=== PATIENT | female | born 1950 | race Caucasian/White ===

== ENCOUNTER 2020-07-16 14:35 | Inpatient (IN) ==
[2020-07-16] MEDS ORDERED: SODIUM CHLORIDE 0.9% 1000ML 1,000 ML IV SCH (15:15)
[2020-07-16] MEDS ORDERED: SODIUM CHLORIDE 0.9% 1000ML 1,000 ML IV ONE (15:28)
[2020-07-16 15:48] LABS: Hematocrit (blood only) 24.2 % (37-47); Hemoglobin 8.1 g/dL (12.0-16.0); Mean Corpuscular Hemoglobin 31.9 pg (25-34); Mean Corpuscular Hgb Conc 33.5 g/dL (32-36); Mean Corpuscular Volume 95.3 fL (80-100); Nucleated RBC # (auto) 0.02 K/uL (0-0); Nucleated RBC % (auto) 0.3 %; RDW Coefficient of Variation 19.3 % (11.5-14.5); RDW Standard Deviation 67.5 fL (36.4-46.3); Red Blood Count 2.54 M/uL (4.2-5.4); White Blood Count 5.81 K/uL (4.8-10.8)
[2020-07-16] MEDS: SODIUM CHLORIDE 0.9% 1000ML 1,000 ML IV SCH ×2 (15:49→22:09)
[2020-07-16 15:59] LABS: INR 1.3 (0.9-1.1); Partial Thromboplastin Ratio 1.6; Partial Thromboplastin Time 43.4 Seconds (21.0-31.0); Prothrombin Time 13.4 Seconds (9.0-12.0)
--- NOTE | 2020-07-16 16:00 | Emergency Department Note ---
Impression & Plan Acute hypotension, Atrial fibrillation with rapid ventricular response, Hypoxia ED Provider Note INFORMANT: Patient ED PROVIDER(S): Lokesh Reinoso MD CHIEF COMPLAINT: Illness PLAN: Disposition: Admit Condition: Guarded MEDICAL DECISION MAKING: Patient presented to the ER with her brother noting her general decline over the last several days. He states she is not doing well taking care of herself. She has been falling is very weak, and is having difficulty with her ADLs. She is in care home but not in nursing care. The patient was hypotensive and tachycardic. She was also exhibiting a pulse oximetry of 87% on room air. She was placed on 3 L nasal cannula oxygen. A code sepsis was initiated. ECG shows rapid atrial fibrillation. Clinically the patient looks extremely dry. Fluid resuscitation was initiated. Covid testing performed. Blood cultures ordered. Laboratory panel ordered. Patient did well with supplemental nasal cannula oxygen. Her CBC showed a moderate anemia. Repeat hemoglobin after hydration was done and showed a worsening anemia. Her chemistry panel was unremarkable. Urinalysis was unremarkable. Cultures are pending. Lactate normal. The patient's blood pressure remained low and additional saline boluses were given. Consultation was made with Dr. Bonner of the hospitalist service. Patient was evaluated for further management. She did go for CT imaging the abdomen pelvis which did not show any obvious issues with bleeding. The patient continued to have hypotension and he placed her on Levophed. Blood type and cross was performed. 2 units of red blood cells were ordered by internal medicine. Covid testing negative. Triage Nursing notes reviewed and agree them. Additional history obtained from patient's brother Vital Signs: reviewed and remarkable for hypoxia and hypotension Differential diagnosis: Sepsis, UTI, pneumonia, metabolic, electrolyte abnormalities, cardiac sources, intracerebral event, toxicologic, neurologic, as well as other pathologies. Diagnostics interpreted by me: ECG: Twelve-lead ECG reveals atrial fibrillation with rapid ventricular spots at 112 bpm. There is a lateral T wave inversions and subtle ST depression. No ST elevation. No PVCs. Normal QRS. Cardiac Monitoring: Cardiac monitoring ordered by me: The patient was placed on continuous cardiac monitoring and observed. It revealed a and atrial fibrillation with rapid response at 121 bpm. Imaging studies: Chest x-ray. Findings: A chest x-ray was performed and revealed no pneumothorax, effusion, infiltrate, pulmonary edema, free air under the diaphragm, or wide mediastinum. Impression: No acute disease. Head CT: A noncontrast CT scan of the head was performed and was negative for tumor, fracture, intracranial hemorrhage, or other acute pathology. CT PE study reveals what appears to be a chronic thrombus but no acute thrombi noted. No infiltrates to suggest pneumonia or other acute pathology. Nodules noted. I refer to the EMR for further details. [facility] HPI: The patient is a 69 year old female who presents to the Emergency Room with complaints of illness and altered mental status. This started over the last few days and is worsening per her brother. The patient also notes the following associated symptoms, left elbow pain from an abrasion, having diarrhea, feeling very thirsty and generally weak. The patient has found no relieving factors. Current pain unable to adequately quantify. Patient is undergoing treatment for breast cancer. She has had multiple falls recently and is getting weaker per the brother. Last chemotherapy was on 05 July 2020. Pt denies LOC, headache, fevers, chills, diaphoresis, visual changes, neck pain, chest pain, breathing difficulties, nausea, vomiting, abdominal pain, back pain, urinary symptoms, numbness, weakness, lymphadenopathy, rash, or other complaints. ROS: See above HPI for pertinent positives & negatives. A total of 10 systems reviewed and were otherwise negative. PAST MEDICAL HISTORY:See Below, atrial fibrillation, breast cancer, CAD PAST SURGICAL HISTORY:See Below, FAMILY HISTORY:See Below SOCIAL HISTORY:See Below, lives alone in a senior center HOME MEDICATIONS:See Below ALLERGIES:See Below VITALS:See Below PHYSICAL EXAMINATION: GENERAL: Awake very-appearing, in no distress HENT: Normocephalic, atraumatic. Oropharynx unremarkable except for very dry mucous membranes. EYES: Normal conjunctiva. Sclera non-icteric. NECK: Inspection normal. Non-tender. Supple. No nuchal rigidity. FROM. No masses. RESPIRATORY: Clear to auscultation. No wheezes. No rales. Normal respiratory effort. CARDIAC: Tachycardic rate. Irregular rhythm. No murmurs. No rubs. Extremities warm and well perfused. Pulses equal. No JVD. GI: Soft, non-distended. No tenderness to palpation. No rebound or guarding. No masses. RECTAL: Deferred. MUSCULOSKELETAL: Atraumatic. Chest examination reveals no tenderness. The back is symmetrical on inspection without obvious abnormality. There is no CVA tenderness to palpation. No joint edema. LOWER EXTREMITIES: Calves are equal size bilaterally and non-tender. 1+ edema. No discoloration. NEURO: Normal sensorium. No sensory or motor deficits noted. SKIN: No rash or jaundice noted. ED COURSE: Code sepsis initiated. Airborne precautions initiated. Critical Care: I have personally spent greater than 35 minutes of critical care time in the direct management of this patient. This includes bedside care, interpretation of diagnostic studies, and testing, discussion with consultants, patient, and family members, and other required patient management activities. These minutes are in excess of all separately billable procedures. 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 related to deviated trachea> no recent surgeries/anesthesia > most recent procedure 2003 [facility] H/O shoulder surgery right total replacement then reverse total > [facility] by Dr. Clifton> 1998 History of arthroscopic knee surgery right History of cardiac cath no stents > over [facility] yrs [facility] > 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: No Beliefs That Will Affect Care: None marital status: Single Current Living Situation: Alone current occupational status: retired 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 How many Children do You have: 0 Feels Safe at Home: Yes Assistive Devices: Cane, Denture - Upper, Denture - Lower, Glasses, Hearing Aid - Bilateral and Walker Allergies Allergies Allergy/AdvReac Type Severity Reaction Status Date / Time adhesive tape Allergy Mild Rash Verified 07/16/20 18:40 iodine Allergy Mild Rash Verified 07/16/20 18:40 Home Meds Home Medications Medication Instructions Recorded Confirmed albuterol sulfate 90 mcg/actuation 2 puffs INH Q6H PRN 03/30/20 07/16/20 aerosol inhaler apixaban 5 mg tablet 5 mg PO BID 03/30/20 07/16/20 aspirin 81 mg tablet,delayed 81 mg PO QAM 03/30/20 07/16/20 release atorvastatin 40 mg tablet 40 mg PO PM 03/30/20 07/16/20 bisoprolol fumarate 5 mg tablet 5 mg PO QAM 03/30/20 07/16/20 cholecalciferol (vitamin D3) 25 25 mcg PO QAM 03/30/20 07/16/20 mcg (1,000 unit) capsule digoxin 250 mcg (0.25 mg) tablet 250 mcg PO QAM 03/30/20 07/16/20 duloxetine 60 mg capsule,delayed 60 mg PO BID 03/30/20 07/16/20 release sprinkle fluticasone furoate 100 1 puffs INH QAM 03/30/20 07/16/20 mcg-vilanterol 25 mcg/dose inhalation powder furosemide 20 mg tablet 20 mg PO QAM 03/30/20 07/16/20 gabapentin 100 mg capsule 200 mg PO TID 03/30/20 07/16/20 levothyroxine 100 mcg capsule 100 mcg PO QAM 03/30/20 07/16/20 loratadine 10 mg tablet 10 mg PO QAM PRN 03/30/20 07/16/20 magnesium oxide 400 mg PO QAM 03/30/20 07/16/20 montelukast 10 mg tablet 10 mg PO HS 03/30/20 07/16/20 omeprazole 40 mg capsule,delayed 40 mg PO BID 03/30/20 07/16/20 release paroxetine HCl 20 mg tablet 20 mg PO DAILY 03/30/20 07/16/20 pramipexole 1 mg tablet 1 mg PO HS 03/30/20 07/16/20 Results & Data (ED) Vital Signs Vital Signs - 24 hr 07/16/20 14:45 07/16/20 15:12 07/16/20 15:15 Temperature 37.4 C Temperature Source Oral Pulse Rate 118 H 118 H Pulse Rate from SpO2 Sensor Pulse Rhythm Regular Respiratory Rate 20 26 H Respiratory Effort / Characteristics Non-Labored Respiratory Depth Normal Blood Pressure 90/46 L Blood Pressure Mean 60 Pulse Oximetry 94 100 87 L Oxygen Delivery Method Room Air Nasal Cannula Room Air Oxygen Flow Rate 3 Sepsis Recent Fever Within 48 Hours No Sepsis New/Unexplained Change in Mental Status Yes Sepsis Action Taken by Nursing No Action Required 07/16/20 15:57 07/16/20 15:58 07/16/20 16:00 Temperature Temperature Source Pulse Rate 98 H 89 96 H Pulse Rate from SpO2 Sensor 95 H 94 H Pulse Rhythm Respiratory Rate 38 H 34 H 26 H Respiratory Effort / Characteristics Respiratory Depth Blood Pressure 75/53 L 80/40 L Blood Pressure Mean 55 69 Pulse Oximetry 98 100 Oxygen Delivery Method Oxygen Flow Rate Sepsis Recent Fever Within 48 Hours Sepsis New/Unexplained Change in Mental Status Sepsis Action Taken by Nursing 07/16/20 16:15 07/16/20 16:31 07/16/20 17:00 Temperature Temperature Source Pulse Rate 84 84 Pulse Rate from SpO2 Sensor 83 87 Pulse Rhythm Respiratory Rate 23 25 H 25 H Respiratory Effort / Characteristics Non-Labored Respiratory Depth Blood Pressure 75/41 L 83/48 L Blood Pressure Mean 46 57 Pulse Oximetry 98 99 94 Oxygen Delivery Method Nasal Cannula Nasal Cannula Oxygen Flow Rate 2 2 Sepsis Recent Fever Within 48 Hours Sepsis New/Unexplained Change in Mental Status Sepsis Action Taken by Nursing 07/16/20 17:24 07/16/20 17:30 07/16/20 17:45 Temperature Temperature Source Pulse Rate 84 76 95 H Pulse Rate from SpO2 Sensor 85 78 96 H Pulse Rhythm Respiratory Rate 26 H 24 20 Respiratory Effort / Characteristics Respiratory Depth Blood Pressure 83/45 L 89/42 L 96/35 L Blood Pressure Mean 62 69 57 Pulse Oximetry 96 92 86 L Oxygen Delivery Method Oxygen Flow Rate Sepsis Recent Fever Within 48 Hours Sepsis New/Unexplained Change in Mental Status Sepsis Action Taken by Nursing 07/16/20 18:00 07/16/20 18:16 07/16/20 18:24 Temperature Temperature Source Pulse Rate 74 78 104 H Pulse Rate from SpO2 Sensor 70 86 83 Pulse Rhythm Respiratory Rate 25 H 32 H 27 H Respiratory Effort / Characteristics Non-Labored Respiratory Depth Blood Pressure 89/40 L 88/40 L 82/49 L Blood Pressure Mean 52 72 63 Pulse Oximetry 94 94 94 Oxygen Delivery Method Nasal Cannula Oxygen Flow Rate 2 Sepsis Recent Fever Within 48 Hours Sepsis New/Unexplained Change in Mental Status Sepsis Action Taken by Nursing 07/16/20 18:30 07/16/20 18:45 07/16/20 19:00 Temperature Temperature Source Pulse Rate 81 81 75 Pulse Rate from SpO2 Sensor 83 80 80 Pulse Rhythm Respiratory Rate 27 H 25 H 26 H Respiratory Effort / Characteristics Non-Labored Respiratory Depth Blood Pressure 85/40 L 86/41 L 80/37 L Blood Pressure Mean 58 55 48 Pulse Oximetry 92 94 95 Oxygen Delivery Method Nasal Cannula Oxygen Flow Rate 2 Sepsis Recent Fever Within 48 Hours Sepsis New/Unexplained Change in Mental Status Sepsis Action Taken by Nursing 07/16/20 19:15 07/16/20 19:30 07/16/20 19:31 Temperature Temperature Source Pulse Rate 80 87 91 H Pulse Rate from SpO2 Sensor 80 87 85 Pulse Rhythm Respiratory Rate 31 H 27 H 25 H Respiratory Effort / Characteristics Respiratory Depth Blood Pressure 78/46 L 89/38 L 80/43 L Blood Pressure Mean 51 56 60 Pulse Oximetry 93 95 95 Oxygen Delivery Method Nasal Cannula Oxygen Flow Rate 2 Sepsis Recent Fever Within 48 Hours Sepsis New/Unexplained Change in Mental Status Sepsis Action Taken by Nursing 07/16/20 19:41 07/16/20 19:45 07/16/20 20:01 Temperature Temperature Source Pulse Rate 76 85 83 Pulse Rate from SpO2 Sensor 90 86 81 Pulse Rhythm Respiratory Rate 22 39 H 29 H Respiratory Effort / Characteristics Respiratory Depth Blood Pressure 64/35 L 76/46 L 79/32 L Blood Pressure Mean 50 54 49 Pulse Oximetry 94 96 92 Oxygen Delivery Method Oxygen Flow Rate Sepsis Recent Fever Within 48 Hours Sepsis New/Unexplained Change in Mental Status Sepsis Action Taken by Nursing 07/16/20 20:46 07/16/20 21:00 Temperature Temperature Source Pulse Rate 67 82 Pulse Rate from SpO2 Sensor 70 64 Pulse Rhythm Respiratory Rate 29 H 19 Respiratory Effort / Characteristics Non-Labored Respiratory Depth Blood Pressure 101/48 L 71/47 L Blood Pressure Mean 66 50 Pulse Oximetry 95 97 Oxygen Delivery Method Nasal Cannula Nasal Cannula Oxygen Flow Rate 2 2 Sepsis Recent Fever Within 48 Hours Sepsis New/Unexplained Change in Mental Status Sepsis Action Taken by Nursing Laboratory Data Result diagrams: 07/16/20 19:48 07/16/20 15:35 Lab Results 07/16/20 07/16/20 07/16/20 Range/Units 15:35 15:35 15:35 WBC 5.81 (4.8-10.8) K/uL RBC 2.54 L (4.2-5.4) M/uL Hgb 8.1 L (12.0-16.0) g/dL Hct 24.2 L (37-47) % MCV 95.3 (80-100) fL MCH 31.9 (25-34) pg MCHC 33.5 (32-36) g/dL RDW Std Deviation 67.5 H (36.4-46.3) fL RDW Coeff of Demetra 19.3 H (11.5-14.5) % Plt Count 54 L (130-400) K/uL MPV 11.8 H (7.4-10.4) fL Immature Gran % (Auto) 2.4 % Neut % (Auto) 77.9 % Lymph % (Auto) 3.3 % Piatt % (Auto) 16.4 % Eos % (Auto) 0.0 % Baso % (Auto) 0.0 % Neut # (Auto) 4.53 (1.4-6.5) K/uL Lymph # (Auto) 0.19 L (1.2-3.4) K/uL Piatt # (Auto) 0.95 H (0.11-0.59) K/uL Eos # (Auto) 0.00 (0-0.5) K/uL Baso # (Auto) 0.00 (0-0.2) K/uL Immature Gran # (Auto) 0.14 H (0.00-0.02) K/uL Absolute Nucleated RBC 0.02 H (0-0) K/uL Nucleated RBC % (auto) 0.3 % Platelet Estimate Decreased L (Normal) PT 13.4 H (9.0-12.0) Seconds INR 1.3 H (0.9-1.1) APTT 43.4 H (21.0-31.0) Seconds PTT Ratio 1.6 Sodium 132 L (136-145) mmol/L Potassium 4.1 (3.5-5.1) mmol/L Chloride 96 L (98-107) mmol/L Carbon Dioxide 29 (21-32) mmol/L Anion Gap 7.0 (3-11) BUN 21 H (7-18) mg/dl Creatinine 0.89 (0.6-1.2) mg/dl Est Cr Clr Drug Dosing 50.8 ml/min Est GFR ( Amer) 76.1 Est GFR (Non-Af Amer) 65.7 BUN/Creatinine Ratio 23.7 H (10-20) Glucose 116 H (70-99) mg/dl Lactate (0.4-2.0) mmol/L Calcium 8.7 (8.5-10.1) mg/dl Magnesium 1.7 L (1.8-2.4) mg/dl Total Bilirubin 0.8 (0.2-1) mg/dl AST 16 (15-37) U/L ALT 18 (12-78) U/L Alkaline Phosphatase 95 (45-117) U/L Troponin I 0.039 (0-0.045) ng/ml Total Protein 5.6 L (6.4-8.2) gm/dl Albumin 2.2 L (3.4-5.0) gm/dl Globulin 3.4 (2.5-4.0) gm/dl Albumin/Globulin Ratio 0.6 L (0.9-2) Procalcitonin (0-0.5) ng/ml Urine Color Urine Appearance (Clear) Urine pH (4.5-7.5) Ur Specific [place] (1.000-1.030) Urine Protein (Negative) Urine Glucose (UA) (Negative) Urine Ketones (Negative) Urine Blood (Negative) Urine Nitrite (Negative) Urine Bilirubin (Negative) Urine Urobilinogen (Negative) Ur Leukocyte Esterase (Negative) Urine WBC (Auto) (0-5) /hpf Urine RBC (Auto) (0-4) /hpf U Hyaline Cast (Auto) (0-5) /lpf U Epithel Cells (Auto) (0-5) /lpf Urine Bacteria (Auto) (Negative) COVID-19 Eval Order SARS-CoV-2, RNA, NAAT (NEGATIVE) Blood Type Blood Type Recheck Antibody Screen Crossmatch 07/16/20 07/16/20 07/16/20 Range/Units 15:35 15:35 15:35 WBC (4.8-10.8) K/uL RBC (4.2-5.4) M/uL Hgb (12.0-16.0) g/dL Hct (37-47) % MCV (80-100) fL MCH (25-34) pg MCHC (32-36) g/dL RDW Std Deviation (36.4-46.3) fL RDW Coeff of Demetra (11.5-14.5) % Plt Count (130-400) K/uL MPV (7.4-10.4) fL Immature Gran % (Auto) % Neut % (Auto) % Lymph % (Auto) % Piatt % (Auto) % Eos % (Auto) % Baso % (Auto) % Neut # (Auto) (1.4-6.5) K/uL Lymph # (Auto) (1.2-3.4) K/uL Piatt # (Auto) (0.11-0.59) K/uL Eos # (Auto) (0-0.5) K/uL Baso # (Auto) (0-0.2) K/uL Immature Gran # (Auto) (0.00-0.02) K/uL Absolute Nucleated RBC (0-0) K/uL Nucleated RBC % (auto) % Platelet Estimate (Normal) PT (9.0-12.0) Seconds INR (0.9-1.1) APTT (21.0-31.0) Seconds PTT Ratio Sodium (136-145) mmol/L Potassium (3.5-5.1) mmol/L Chloride (98-107) mmol/L Carbon Dioxide (21-32) mmol/L Anion Gap (3-11) BUN (7-18) mg/dl Creatinine (0.6-1.2) mg/dl Est Cr Clr Drug Dosing ml/min Est GFR ( Amer) Est GFR (Non-Af Amer) BUN/Creatinine Ratio (10-20) Glucose (70-99) mg/dl Lactate 1.2 (0.4-2.0) mmol/L Calcium (8.5-10.1) mg/dl Magnesium (1.8-2.4) mg/dl Total Bilirubin (0.2-1) mg/dl AST (15-37) U/L ALT (12-78) U/L Alkaline Phosphatase (45-117) U/L Troponin I (0-0.045) ng/ml Total Protein (6.4-8.2) gm/dl Albumin (3.4-5.0) gm/dl Globulin (2.5-4.0) gm/dl Albumin/Globulin Ratio (0.9-2) Procalcitonin 0.55 H (0-0.5) ng/ml Urine Color Urine Appearance (Clear) Urine pH (4.5-7.5) Ur Specific [place] (1.000-1.030) Urine Protein (Negative) Urine Glucose (UA) (Negative) Urine Ketones (Negative) Urine Blood (Negative) Urine Nitrite (Negative) Urine Bilirubin (Negative) Urine Urobilinogen (Negative) Ur Leukocyte Esterase (Negative) Urine WBC (Auto) (0-5) /hpf Urine RBC (Auto) (0-4) /hpf U Hyaline Cast (Auto) (0-5) /lpf U Epithel Cells (Auto) (0-5) /lpf Urine Bacteria (Auto) (Negative) COVID-19 Eval Order SARS-CoV-2, RNA, NAAT (NEGATIVE) Blood Type Blood Type Recheck A Negative Antibody Screen Crossmatch 07/16/20 07/16/20 07/16/20 Range/Units 15:38 15:38 16:03 WBC (4.8-10.8) K/uL RBC (4.2-5.4) M/uL Hgb (12.0-16.0) g/dL Hct (37-47) % MCV (80-100) fL MCH (25-34) pg MCHC (32-36) g/dL RDW Std Deviation (36.4-46.3) fL RDW Coeff of Demetra (11.5-14.5) % Plt Count (130-400) K/uL MPV (7.4-10.4) fL Immature Gran % (Auto) % Neut % (Auto) % Lymph % (Auto) % Piatt % (Auto) % Eos % (Auto) % Baso % (Auto) % Neut # (Auto) (1.4-6.5) K/uL Lymph # (Auto) (1.2-3.4) K/uL Piatt # (Auto) (0.11-0.59) K/uL Eos # (Auto) (0-0.5) K/uL Baso # (Auto) (0-0.2) K/uL Immature Gran # (Auto) (0.00-0.02) K/uL Absolute Nucleated RBC (0-0) K/uL Nucleated RBC % (auto) % Platelet Estimate (Normal) PT (9.0-12.0) Seconds INR (0.9-1.1) APTT (21.0-31.0) Seconds PTT Ratio Sodium (136-145) mmol/L Potassium (3.5-5.1) mmol/L Chloride (98-107) mmol/L Carbon Dioxide (21-32) mmol/L Anion Gap (3-11) BUN (7-18) mg/dl Creatinine (0.6-1.2) mg/dl Est Cr Clr Drug Dosing ml/min Est GFR ( Amer) Est GFR (Non-Af Amer) BUN/Creatinine Ratio (10-20) Glucose (70-99) mg/dl Lactate (0.4-2.0) mmol/L Calcium (8.5-10.1) mg/dl Magnesium (1.8-2.4) mg/dl Total Bilirubin (0.2-1) mg/dl AST (15-37) U/L ALT (12-78) U/L Alkaline Phosphatase (45-117) U/L Troponin I (0-0.045) ng/ml Total Protein (6.4-8.2) gm/dl Albumin (3.4-5.0) gm/dl Globulin (2.5-4.0) gm/dl Albumin/Globulin Ratio (0.9-2) Procalcitonin (0-0.5) ng/ml Urine Color [place] Urine Appearance Clear (Clear) Urine pH 6.0 (4.5-7.5) Ur Specific [place] 1.023 (1.000-1.030) Urine Protein 1+ H (Negative) Urine Glucose (UA) Negative (Negative) Urine Ketones Negative (Negative) Urine Blood Negative (Negative) Urine Nitrite Negative (Negative) Urine Bilirubin Negative (Negative) Urine Urobilinogen Negative (Negative) Ur Leukocyte Esterase Trace H (Negative) Urine WBC (Auto) 0 (0-5) /hpf Urine RBC (Auto) 0-4 (0-4) /hpf U Hyaline Cast (Auto) 1-5 (0-5) /lpf U Epithel Cells (Auto) 0-5 (0-5) /lpf Urine Bacteria (Auto) Negative (Negative) COVID-19 Eval Order Covid19 [facility]Now [facility] SARS-CoV-2, RNA, NAAT NEGATIVE (NEGATIVE) Blood Type Blood Type Recheck Antibody Screen Crossmatch 07/16/20 07/16/20 Range/Units 19:48 19:48 WBC (4.8-10.8) K/uL RBC (4.2-5.4) M/uL Hgb 6.8 L* (12.0-16.0) g/dL Hct 20.6 L* (37-47) % MCV (80-100) fL MCH (25-34) pg MCHC (32-36) g/dL RDW Std Deviation (36.4-46.3) fL RDW Coeff of Demetra (11.5-14.5) % Plt Count (130-400) K/uL MPV (7.4-10.4) fL Immature Gran % (Auto) % Neut % (Auto) % Lymph % (Auto) % Piatt % (Auto) % Eos % (Auto) % Baso % (Auto) % Neut # (Auto) (1.4-6.5) K/uL Lymph # (Auto) (1.2-3.4) K/uL Piatt # (Auto) (0.11-0.59) K/uL Eos # (Auto) (0-0.5) K/uL Baso # (Auto) (0-0.2) K/uL Immature Gran # (Auto) (0.00-0.02) K/uL Absolute Nucleated RBC (0-0) K/uL Nucleated RBC % (auto) % Platelet Estimate (Normal) PT (9.0-12.0) Seconds INR (0.9-1.1) APTT (21.0-31.0) Seconds PTT Ratio Sodium (136-145) mmol/L Potassium (3.5-5.1) mmol/L Chloride (98-107) mmol/L Carbon Dioxide (21-32) mmol/L Anion Gap (3-11) BUN (7-18) mg/dl Creatinine (0.6-1.2) mg/dl Est Cr Clr Drug Dosing ml/min Est GFR ( Amer) Est GFR (Non-Af Amer) BUN/Creatinine Ratio (10-20) Glucose (70-99) mg/dl Lactate (0.4-2.0) mmol/L Calcium (8.5-10.1) mg/dl Magnesium (1.8-2.4) mg/dl Total Bilirubin (0.2-1) mg/dl AST (15-37) U/L ALT (12-78) U/L Alkaline Phosphatase (45-117) U/L Troponin I (0-0.045) ng/ml Total Protein (6.4-8.2) gm/dl Albumin (3.4-5.0) gm/dl Globulin (2.5-4.0) gm/dl Albumin/Globulin Ratio (0.9-2) Procalcitonin (0-0.5) ng/ml Urine Color Urine Appearance (Clear) Urine pH (4.5-7.5) Ur Specific [place] (1.000-1.030) Urine Protein (Negative) Urine Glucose (UA) (Negative) Urine Ketones (Negative) Urine Blood (Negative) Urine Nitrite (Negative) Urine Bilirubin (Negative) Urine Urobilinogen (Negative) Ur Leukocyte Esterase (Negative) Urine WBC (Auto) (0-5) /hpf Urine RBC (Auto) (0-4) /hpf U Hyaline Cast (Auto) (0-5) /lpf U Epithel Cells (Auto) (0-5) /lpf Urine Bacteria (Auto) (Negative) COVID-19 Eval Order SARS-CoV-2, RNA, NAAT (NEGATIVE) Blood Type A Negative Blood Type Recheck Antibody Screen NEGATIVE Crossmatch See Detail Administered Medications Sodium Chloride (Nss 1000ml) 1,000 mls @ 150 mls/hr IV .Q6H40M ISH Stop: 08/15/20 15:14 Last Admin: 07/16/20 15:49 Dose: 150 mls/hr Documented by: [id number] Vancomycin HCl 1,250 mg/ (Sodium Chloride) 525 mls @ 200 mls/hr IV NOW ONE Stop: 07/16/20 22:11 Last Admin: 07/16/20 20:40 Dose: 200 mls/hr Documented by: [id number] Norepinephrine Bitartrate (Levophed/D5w) 8 mg in 508 mls @ 11.525 mls/hr IV .Q24H ISH; Protocol Stop: 08/15/20 20:14 Last Admin: 07/16/20 20:40 Dose: 0.05 mcg/kg/min, 11.5 mls/hr Documented by: [id number] Cosigned by: [id number] Discontinued Medications Sodium Chloride (Nss 1000ml) 1,000 mls @ 999 mls/hr IV .Q1H1M ISH Stop: 07/16/20 16:15 Last Infusion: 07/16/20 16:45 Dose: 0 mls/hr Documented by: [id number] Admin: 07/16/20 15:49 Dose: 999 mls/hr Documented by: [id number] Sodium Chloride (Nss 1000ml) 1,000 mls @ 999 mls/hr IV .Q1H1M ONE Stop: 07/16/20 16:28 Last Infusion: 07/16/20 19:18 Dose: 0 mls/hr Documented by: [id number] Admin: 07/16/20 15:48 Dose: 999 mls/hr Documented by: [id number] Cefepime HCl (Maxipime) 2,000 mg in 20 mls @ 5 mls/min IV NOW STA; Protocol Stop: 07/16/20 16:48 Last Admin: 07/16/20 17:23 Dose: 5 mls/min Documented by: [id number] Sodium Chloride (Nss 1000ml) 500 mls @ 999 mls/hr IV .Q31M ONE Stop: 07/16/20 20:09 Last Infusion: 07/16/20 21:07 Dose: 0 mls/hr Documented by: [id number] Admin: 07/16/20 19:52 Dose: 999 mls/hr Documented by: [id number] Pantoprazole Sodium 80 mg/ (Dextrose) 120 mls @ 400 mls/hr IV NOW ONE Stop: 07/16/20 20:47 Last Infusion: 07/16/20 21:07 Dose: 0 mls/hr Documented by: [id number] Admin: 07/16/20 20:47 Dose: 400 mls/hr Documented by: [id number] Ioversol (Optiray 320 125ml) 116 ml IV ONCE ONE Stop: 07/16/20 16:54 Last Admin: 07/16/20 16:54 Dose: 116 ml Documented by: [id number] Discharge Plan Visit Data Chief Complaint: Illness Stated Complaint: HALLUCINATION, FALLS, NOT TAKING MEDS,CA PT ED Provider: Lokesh Reinoso Discharge Problem: Acute hypotension, Atrial fibrillation with rapid ventricular response, Hypoxia Forms Stand Alone Forms: [facility] Prescriptions Prescriptions: No Action Eliquis 5 mg tablet 5 mg PO BID RF: 0 levothyroxine 100 mcg capsule 100 mcg PO QAM RF: 0 aspirin 81 mg tablet,delayed release (DR/EC) 81 mg PO QAM RF: 0 atorvastatin 40 mg tablet 40 mg PO PM RF: 0 loratadine [Claritin] 10 mg tablet 10 mg PO QAM PRN (Reason: Allergy Symptoms) RF: 0 duloxetine 60 mg capsule, delayed rel sprinkle 60 mg PO BID RF: 0 bisoprolol fumarate 5 mg tablet 5 mg PO QAM RF: 0 Breo Ellipta 100-25 mcg/dose blister with device 1 puffs INH QAM RF: 0 gabapentin 100 mg capsule 200 mg PO TID RF: 0 montelukast 10 mg tablet 10 mg PO HS RF: 0 furosemide 20 mg tablet 20 mg PO QAM RF: 0 magnesium oxide 400 mg magnesium capsule 400 mg PO QAM RF: 0 paroxetine HCl 20 mg tablet 20 mg PO DAILY RF: 0 cholecalciferol (vitamin D3) 25 mcg (1,000 unit) capsule 25 mcg PO QAM RF: 0 digoxin 250 mcg (0.25 mg) tablet 250 mcg PO QAM RF: 0 pramipexole 1 mg tablet 1 mg PO HS RF: 0 omeprazole 40 mg capsule,delayed release(DR/EC) 40 mg PO BID RF: 0 albuterol sulfate [Ventolin HFA] 90 mcg/actuation HFA aerosol inhaler 2 puffs INH Q6H PRN (Reason: Shortness Of Breath) RF: 0
[2020-07-16 16:17] LABS: Albumin Level 2.2 gm/dl (3.4-5.0); BUN Creatinine Ratio 23.7 (10-20); Calcium 8.7 mg/dl (8.5-10.1); Creatinine Clr Calc Pharmacy 50.8 ml/min; Est GFR (African American) 76.1; Est GFR (Non-African American) 65.7; Magnesium 1.7 mg/dl (1.8-2.4); Potassium 4.1 mmol/L (3.5-5.1)
[2020-07-16 16:22] LABS: Albumin Globulin Ratio 0.6 (0.9-2); Bilirubin,Total 0.8 mg/dl (0.2-1); Globulin 3.4 gm/dl (2.5-4.0); Total Protein 5.6 gm/dl (6.4-8.2); Troponin I 0.039 ng/ml (0-0.045)
[2020-07-16 16:25] LABS: Appearance Urine Clear (Clear); Bacteria Urine Automated Negative (Negative); Bilirubin Urine Negative (Negative); Blood Urine Negative (Negative); Color Urine Orange; Epithelial Cell Urine Auto 0-5 /lpf (0-5); Glucose Urine UA Negative (Negative); Ketones Urine Negative (Negative); Leukocyte Esterase Urine Trace (Negative); Nitrite Urine Negative (Negative); Protein Urine 1+ (Negative); RBC Urine Automated 0-4 /hpf (0-4); Specific Gravity Urine 1.023 (1.000-1.030); Urobilinogen Urine Negative (Negative); WBC Urine Automated 0 /hpf (0-5)
[2020-07-16 16:30] LABS: Immature Granulocytes # (auto) 0.14 K/uL (0.00-0.02); Immature Granulocytes % (auto) 2.4 %; Lymphocytes # (auto) 0.19 K/uL (1.2-3.4); Lymphocytes % (auto) 3.3 %; Mean Platelet Volume 11.8 fL (7.4-10.4); Monocytes # (auto) 0.95 K/uL (0.11-0.59); Monocytes % (auto) 16.4 %; Neutrophils # (auto) 4.53 K/uL (1.4-6.5); Neutrophils % (auto) 77.9 %; Platelet Count 54 K/uL (130-400); Platelet Estimate Decreased (Normal)
[2020-07-16] MEDS ORDERED: CEFEPIME 2,000 MG/20 ML VIAL IV STA (16:45)
[2020-07-16] MEDS ORDERED: OPTIRAY 320 125ml IV ONE (16:53)
--- NOTE | 2020-07-16 16:54 | XRay Report ---
SINGLE VIEW CHEST CLINICAL HISTORY: Sepsis. FINDINGS: An AP, portable, upright chest radiograph is compared to study dated 04/08/2020 and correlat ed with PET/CT dated 03/29/2020. A left subclavian central venous infusion port is in place. The heart is enlarged noting atherosclerotic calcification of the thoracic aorta. There is pulmonary vascular congestion. Scarring/atelectasis is noted at the lung bases. No airspace consolidation is seen typica l for pneumonia. Trace pleural effusions are suspected. No pneumothorax is seen. The skeletal structu res are osteopenic. There are numerous healed bilateral rib fractures. A right shoulder arthroplasty is in place. Advanced arthritic change is seen in the left shoulder. IMPRESSION: 1. Cardiomegaly with evidence of congestive failure 2. Suspect trace pleural effusions. ACT 112: Negative or not required by law. Electronically signed by: Neto Ram M.D. 07/16/2020 4:52 PM
--- NOTE | 2020-07-16 17:01 | CT Scan Report ---
CT SCAN OF THE BRAIN WITHOUT IV CONTRAST CLINICAL HISTORY: Fall. Change in mental status. COMPARISON STUDY: No priors. TECHNIQUE: Unenhanced axial CT scan of the brain is performed from the vertex to the skull base. A do se lowering technique was utilized adhering to the principles of ALARA. FINDINGS: Brain parenchyma: There are age-related involutional changes noting advanced subcortical and periven tricular microangiopathic change. There is no hemorrhage, mass effect, or evidence of acute territori al ischemia by CT criteria. Ornelas-white matter differentiation is preserved. No extra-axial fluid kaylee ection is seen. Ventricles, sulci, cisterns: Prominent secondary to involutional change. Intracranial vasculature: There is atherosclerotic calcification of the cavernous carotid and vertebr al arteries. Calvarium: The skeletal structures are osteopenic. No depressed calvarial fracture is identified. Sinuses and mastoids: The visualized paranasal sinuses are clear. The mastoid air cells are well pneu matized. Orbits: The bony orbits are grossly intact. There are bilateral ocular lens implants. IMPRESSION: There is no hemorrhage, mass effect, or evidence of acute territorial ischemia by CT abdoulaye capps. ACT 112: Negative or not required by law. Electronically signed by: Neto Ram M.D. 07/16/2020 4:59 PM
--- NOTE | 2020-07-16 17:15 | CT Scan Report ---
CT ANGIOGRAM OF THE CHEST CLINICAL HISTORY: Hypotension. Breast cancer. COMPARISON STUDY: Chest x-ray dated 07/16/2020. PET/CT dated 03/29/2020. TECHNIQUE: Following the IV administration of 116 cc of Optiray 320, CT angiogram of the chest was pe rformed from the upper abdomen to the thoracic inlet utilizing the pulmonary embolus protocol. Images are reviewed in the axial, sagittal, and coronal planes. 3-D MIPS images are created and assessed. I V contrast was administered without complication. A dose lowering technique was utilized adhering to the principles of ALARA. The examination is degraded by streak artifact from the right arm which cou ld not be elevated above the chest as well as by motion artifact. CT DOSE: 963.32 mGy.cm FINDINGS: Thyroid: Atrophic. Thoracic aorta: There is atherosclerotic calcification of the thoracic aorta, which is normal in paras beth and demonstrates standard 3-vessel arch anatomy. No dissection is seen. Pulmonary vasculature: The pulmonary trunk is mildly dilated measuring 3.2 cm in diameter. This sugge sts pulmonary artery hypertension. There is a thin linear filling defect within a segmental branch of the left lower lobe pulmonary artery seen on image #125. This may represent trace chronic thrombus. No additional filling defects are identified within the main, lobar, or proximal segmental pulmonary branches to suggest pulmonary embolus. Evaluation of the peripheral branches is significantly comprom ised by motion artifact. 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 A left subclavian central venous infusio n port is in place. Heart: The heart is markedly enlarged and without pericardial effusion. Lungs and pleural spaces: Evaluation of the lung parenchyma is compromised by motion artifact. The tr achea and central airways are clear. There is no lobar consolidation or pleural effusion. Scarring/at electasis is noted at both lung bases. A 10 mm left upper lobe pulmonary nodule on image #152 is unch anged from the 03/29/2020 examination. A 9 mm left upper lobe pulmonary nodules seen on image #160 is new from previous, as is an 8 mm pleural-based nodule at the left lung base seen on image #59. Mediastinum: There is no mediastinal lymphadenopathy. Qing: Clear. Axillae: There is no axillary lymphadenopathy. Upper abdomen: There is a small hiatal hernia. Partially visualized upper abdominal viscera is otherw ise grossly unremarkable. Skeletal structures: The skeletal structures are osteopenic. A right shoulder arthroplasty is in plac e. Arthritic change is noted in the left shoulder. Degenerative change and hyperkyphosis is also seen in the thoracic spine. No lytic or blastic bony lesions are seen. Soft tissues: Postoperative change is noted in the right breast. IMPRESSION: 1. Streak and motion compromised examination. 2. A linear filling defect within a segmental branch of the left lower lobe pulmonary artery likely r epresents trace chronic thrombus. 3. No additional findings are concerning for acute pulmonary embolus in the main, lobar, or proximal segmental pulmonary arteries. Evaluation of the peripheral branches is significantly motion compromis ed. 4. Marked cardiomegaly. 5. A 10 mm left upper lobe pulmonary nodule is unchanged as compared to 03/29/2020. 6. There are 2 additional pulmonary and pleural-based nodules in the left lung which are new from 03/20. Although these could be on an inflammatory basis, progressive metastatic disease is favored. Attention at follow-up will be required. 7. 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 ACT 112: Negative or not required by law. Electronically signed by: Neto Ram M.D. 07/16/2020 5:14 PM
--- NOTE | 2020-07-16 19:33 | History & Physical Report ---
Date of Service July 16, 2020 Assessment & Plan (1) Septic shock: Suspected with source bacteremia from port +/- open wound on back. NSS 2.5L bolus given in ER. Will start on Levophed Empiric antibiotics with vancomycin and cefepime. Follow up blood cultures (one from port, one peripheral) Discussed with ICU EDUARDO Garcias - patient to be admitted to ICU for ongoing care due to need for vasopressors. (2) Acute hypotension: ?sepsis, ?secondary to lasix/bisoprolol use. (3) Dehydration: Poor oral intake. Adequate fluid resuscitation with 2.5L NSS in ER. Further IV fluids per ICU. No signs of heart failure after these fluids despite moderate-severe aortic stenosis. (4) Normocytic anemia: Concerning drop in ER from Hgb 10.7 [07/05] to 8.1, now 6.8. Suspect acute drop is from dilution with IV fluids. Likely secondary to chemotherapy bone marrow suppression but difficult to rule out GI bleed from unreliable history from patient. FOB pending. CT A/P without IV contrast unremarkable. Start IV pantoprazole bolus + drip Transfuse 2 units packed RBCs (5) Thrombocytopenia: Suspect secondary to bone marrow suppression with chemotherapy. Monitor with AM labs. (6) Hypoxia: Aim O2 sats > 94% (7) Right breast cancer with T3 tumor, >5 cm in greatest dimension: ER positive HER2/jose negative. Currently undergoing neoadjuvant chemotherapy under Dr Spencer. (8) Atrial fibrillation with rapid ventricular response: Improved rate with IV fluids suggestive of dehydrated state in ER. Monitor for tachycardia with discontinuation of bisoprolol. Will defer to ICU continuation of digoxin. Holding apixaban in setting of possible GI bleed as above. (9) Aortic stenosis: Notable recent echocardiogram with moderate-severe aortic stenosis. No evidence of heart failure after IV fluids given. Follows with cardiology (Dr Koenig) (10) Dementia: On no medications for such. At risk of delirium - frequent reorientation. (11) DVT prophylaxis: Holding apixaban in setting of possible GI bleed. SCDs Admission and Anticipated Discharge Date Admission Date: 07/16/2020 History of Present Illness Chief Complaint: Fatigue Primary Care Provider: Vamshi Ornelas MD Cyndi Vega is a 69 year old female with right breast invasive ductal carcinoma who presents to the ER with generalized weakness and fatigue. She is currently undergoing neoadjuvant chemotherapy for invasive ductal carcinoma. She lives by herself and has progressive dementia therefore history taking from the patient is rather limited. She reports recurrent falls, generally not feeling well, 2 episodes of diarrhea over the last week (brown, not watery, no melena or bright red blood in stool). She denies any fever, chills, shortness of breath, chest pain, abdominal pain, cough, sinus congestion, dysuria. Just generally feeling weak - she went to the bathroom last night and notes falling down and couldn't get back up. No one sided weakness or change in sensation. She notes her brother Ramón makes all of her medical decisions and acts as her power of mercury cracking tester. Discussed with her brother Ramón Vega who is her power of mercury cracking tester. He reports she has been getting increasingly confused and weak for the last weak. Loss of appetite and not eating. She has had recurrent falls and was crawling around her apartment yesterday. She refuses to wear her medical alert bracelet so did not inform him immediately despite he lives only one mile down the road. She eventually called 911 but refused to go to hospital after they lifted her up. Usually ambulatory with a walker. He also reports concern for an open wound on the patients left shoulder. He reports she picks at this constantly and was recently prescribed antibiotics by her PCP for this. Consent granted for blood transfusion verbally over the phone. Allergies Allergy/AdvReac Type Severity Reaction Status Date / Time adhesive tape Allergy Mild Rash Verified 07/16/20 18:40 iodine Allergy Mild Rash Verified 07/16/20 18:40 Home Medications Medication Instructions Recorded Confirmed Type albuterol sulfate 90 mcg/actuation 2 puffs INH Q6H PRN 03/30/20 07/16/20 History aerosol inhaler apixaban 5 mg tablet 5 mg PO BID 03/30/20 07/16/20 History aspirin 81 mg tablet,delayed 81 mg PO QAM 03/30/20 07/16/20 History release atorvastatin 40 mg tablet 40 mg PO PM 03/30/20 07/16/20 History bisoprolol fumarate 5 mg tablet 5 mg PO QAM 03/30/20 07/16/20 History cholecalciferol (vitamin D3) 25 25 mcg PO QAM 03/30/20 07/16/20 History mcg (1,000 unit) capsule digoxin 250 mcg (0.25 mg) tablet 250 mcg PO QAM 03/30/20 07/16/20 History duloxetine 60 mg capsule,delayed 60 mg PO BID 03/30/20 07/16/20 History release sprinkle fluticasone furoate 100 1 puffs INH QAM 03/30/20 07/16/20 History mcg-vilanterol 25 mcg/dose inhalation powder furosemide 20 mg tablet 20 mg PO QAM 03/30/20 07/16/20 History gabapentin 100 mg capsule 200 mg PO TID 03/30/20 07/16/20 History levothyroxine 100 mcg capsule 100 mcg PO QAM 03/30/20 07/16/20 History loratadine 10 mg tablet 10 mg PO QAM PRN 03/30/20 07/16/20 History magnesium oxide 400 mg PO QAM 03/30/20 07/16/20 History montelukast 10 mg tablet 10 mg PO HS 03/30/20 07/16/20 History omeprazole 40 mg capsule,delayed 40 mg PO BID 03/30/20 07/16/20 History release paroxetine HCl 20 mg tablet 20 mg PO DAILY 03/30/20 07/16/20 History pramipexole 1 mg tablet 1 mg PO HS 03/30/20 07/16/20 History Past Med/Surg History Medical History (Updated 07/17/20 @ 13:36 by Abdulaziz Estrella MD) Anemia Anxiety Aortic stenosis moderate per 03/2020 echo Arthritis Asthma Atrial fibrillation Breast cancer, right Cardiac murmur has had for long time Dementia Depression GERD (gastroesophageal reflux disease) Hearing deficit Hyperlipidemia Hypertension Hypothyroidism 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 related to deviated trachea> no recent surgeries/anesthesia > most recent procedure 2003 [facility] H/O shoulder surgery right total replacement then reverse total > [facility] by Dr. Clifton> 1998 History of arthroscopic knee surgery right History of cardiac cath no stents > over 5 yrs ago > [facility]. sees Dr. Arya kaur cardiology History of colonoscopy History of hip surgery bilat replacements > [facility] > [facility] > unsure when but prior to 2003 History of tooth extraction History of total right knee replacement 2003 @ [facility] Family History Sister Diabetes Breast cancer Grandmother (Maternal) Thyroid cancer Social History Smoking Status: Never smoker Second Hand Exposure: No; Do You Dip or Chew Tobacco: No; Tobacco Cessation Education Requested by Patient: No Hx Alcohol Use: No Hx Substance Use: No Preferred Language: Yoruba Communication Ability: Effective Hammer Fitter Required: No Beliefs That Will Affect Care: None marital status: Single Current Living Situation: Alone current occupational status: retired 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 How many Children do You have: 0 Other Information That Helps Us Care for You: No Feels Safe at Home: Yes Safety Concerns: Feels Safe At This Time Assistive Devices: Cane, Glasses and Walker Review of Systems Review of Systems: All systems reviewed & are unremarkable except as noted in HPI & below Physical Exam Constitutional: well developed and + frail appearing; + not well nourished and no acute distress Eyes: PERRL, conjunctivae normal, anicteric sclerae ENMT: Mouth: + dry oral mucous membranes and + poor dentition Neck: trachea midline, no thyromegaly Respiratory: normal respiratory effort, lungs clear to auscultation Auscultation: no crackles and no wheezes Cardiovascular: Rate/Rhythm: regular rate and + irregularly irregular Heart Sounds: + murmur (systolic RUSB 2/6) Vessels: no JVD Extremities: normal capillary refill and + pedal edema (1+ ankles b/l equal); no calf tenderness Gastrointestinal (Abdomen): normal bowel sounds, soft, nontender, no hepatosplenomegaly Skin: + ulcer (unstageable 2cm ulcer, no cellulitis on base posterior left nec) Neurologic: moves all extremities and awake; no focal motor deficits (no lateralizing deficit) and not confused Speech / Cognition: normal speech Motor/Sensory: no tremor, no pronator drift and no sensory deficit Coordination: normal [id number] test Psychiatric: Orientation: alert, oriented to person, oriented to place and oriented to time Results & Data Results & Data ([facility]) Vital Signs (Past 12 Hours) Vital Signs Temp Pulse Resp BP Pulse Ox 07/16/20 19:15 80 31 H 78/46 L 93 07/16/20 19:00 75 26 H 80/37 L 95 07/16/20 18:45 81 25 H 86/41 L 94 07/16/20 18:30 81 27 H 85/40 L 92 07/16/20 18:24 104 H 27 H 82/49 L 94 07/16/20 18:16 78 32 H 88/40 L 94 07/16/20 18:00 74 25 H 89/40 L 94 07/16/20 17:45 95 H 20 96/35 L 86 L 07/16/20 17:30 76 24 89/42 L 92 07/16/20 17:24 84 26 H 83/45 L 96 07/16/20 17:00 25 H 94 07/16/20 16:31 84 25 H 83/48 L 99 07/16/20 16:15 84 23 75/41 L 98 07/16/20 16:00 96 H 26 H 100 07/16/20 15:58 89 34 H 80/40 L 98 07/16/20 15:57 98 H 38 H 75/53 L 07/16/20 15:15 87 L 07/16/20 15:12 118 H 26 H 100 07/16/20 14:45 37.4 C 118 H 20 90/46 L 94 Diagnostic Findings SINGLE VIEW CHEST IMPRESSION: 1. Cardiomegaly with evidence of congestive failure 2. Suspect trace pleural effusions. CT SCAN OF THE BRAIN WITHOUT IV CONTRAST IMPRESSION: There is no hemorrhage, mass effect, or evidence of acute territorial ischemia by CT criteria. CT ANGIOGRAM OF THE CHEST IMPRESSION: 1. Streak and motion compromised examination. 2. A linear filling defect within a segmental branch of the left lower lobe pulmonary artery likely represents trace chronic thrombus. 3. No additional findings are concerning for acute pulmonary embolus in the main, lobar, or proximal segmental pulmonary arteries. Evaluation of the peripheral branches is significantly motion compromised. 4. Marked cardiomegaly. 5. A 10 mm left upper lobe pulmonary nodule is unchanged as compared to 03/29/2020. 6. There are 2 additional pulmonary and pleural-based nodules in the left lung which are new from 03/29/2020. Although these could be on an inflammatory basis, progressive metastatic disease is favored. Attention at follow-up will be required. 7. 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 CT SCAN OF THE ABDOMEN AND PELVIS WITHOUT IV CONTRAST IMPRESSION: There are no acute infectious or inflammatory findings in the abdomen or pelvis. Medications Administered ER Medications given: NSS 2L bolus then 125ml/hr Cefepime 2g IV Vancomycin 1250 mg IV ECG Rate (beats per minute): 112 Rhythm: atrial fibrillation Findings: + T-wave inversion (Anterior) Comparison ECG Date: from (March 30, 2020) Change: the following changes noted (T wave inversions are new) Code Status & VTE Plan Code Status Full as discussed with the patient and POA - although previous wishes not to be intubated she currently wishes for full resuscitation which her POA agrees to. VTE Prophylaxis Plan VTE Prophylaxis will be ordered: Yes Critical Care Time Critical Care Time: Yes Total Critical Care Time: 35 PG Care Time/CCT Total # of Minutes Spent Total Time Spent with Patient: Total time spent is greater than 50% in coordination of care (as documented) at patient's floor/unit and/or counseling patient: Critical Care Time: Yes Total Critical Care Time: 35 Coding Level of Care Code 79707 Initial Inpt Care Lvl 3 Diagnoses Septic shock A41.9; R65.21 Acute hypotension I95.9 Dehydration E86.0 Normocytic anemia D64.9 Thrombocytopenia D69.6 Hypoxia R09.02 Right breast cancer with T3 tumor, >5 cm in greatest dimension C50.911 Atrial fibrillation with rapid ventricular response I48.91 Aortic stenosis I35.0 Dementia F03.90 DVT prophylaxis Z29.9 Additional Codes Critical Care Time - Critical Care Time: Yes ([id number])
[2020-07-16] MEDS ORDERED: VANCOMYCIN CONSULT ACTIVE PRN (19:34)
[2020-07-16] MEDS ORDERED: VANCOMYCIN HCL 1,250 MG in SODIUM CHLORIDE 0.9% 500 ML IV ONE (19:34)
[2020-07-16] MEDS ORDERED: SODIUM CHLORIDE 0.9% 1000ML 500 ML IV ONE (19:39)
[2020-07-16] MEDS ORDERED: STAT IV Infusion **Titration per Protocol STA (20:00)
[2020-07-16 20:09] LABS: Hematocrit (blood only) 20.6 % (37-47); Hemoglobin 6.8 g/dL (12.0-16.0)
[2020-07-16] MEDS ORDERED: PANTOPRAZOLE BOLUS/DRIP 1 EA IV STA (20:13)
[2020-07-16] MEDS ORDERED: SODIUM CHLORIDE 0.9% 250 ML IV PRN (20:13)
[2020-07-16] MEDS ORDERED: PANTOprazole 80 MG in DEXTROSE 5% 100 ML IV ONE (20:30)
[2020-07-16] MEDS: NOREPINEPHRINE/D5W 8 MG/508 ML BAG IV SCH (20:40)
--- NOTE | 2020-07-16 20:59 | CT Scan Report ---
CT SCAN OF THE ABDOMEN AND PELVIS WITHOUT IV CONTRAST CLINICAL HISTORY: Sepsis. Diarrhea. COMPARISON STUDY: PET CT dated 03/29/2020. TECHNIQUE: CT scan of the abdomen and pelvis is performed from the lung bases to the proximal femora. Images are reviewed in the axial, sagittal, and coronal planes. IV contrast was not administered for this examination. Note that the examination was performed in suboptimal fashion without oral and IV contrast. There is streak artifact from the right arm which could not be elevated above the abdomen. A dose lowering technique was utilized adhering to the principles of ALARA. CT DOSE: 564.27 mGy.cm FINDINGS: Lung bases: The heart is enlarged and without pericardial effusion. Scarring/atelectasis is seen at b oth lung bases. There is no airspace consolidation or pleural effusion. Liver: The unenhanced liver is normal in size, contour, and attenuation. There is no intrahepatic bridgette iary ductal dilatation. Gallbladder: Unremarkable. Spleen: Normal in size and attenuation. Pancreas: The unenhanced pancreas is atrophic and grossly unremarkable. Adrenal glands: Unremarkable. Kidneys: The unenhanced kidneys demonstrate cortical atrophy and are without hydronephrosis. The left kidney is located in the pelvis. Excreted IV contrast fills the renal collecting systems and ureters . The presence renal calculi cannot be assessed. There is no evidence of contour deforming renal mass lesion. Abdominal vasculature: The abdominal aorta is normal in course and caliber noting mild atheroscleroti c calcification. Bowel: There is no bowel obstruction. The appendix is well-visualized and normal. Peritoneum: There is no intraperitoneal free air or abdominal ascites. Lymphadenopathy: None. Pelvic viscera: Evaluation of the pelvis is severely degraded by streak artifact from bilateral hip a rthroplasties. The bladder is filled with excreted IV contrast and grossly unremarkable. The uterus i s normal as visualized. No adnexal lesion is seen. Skeletal structures: The skeletal structures are osteopenic. No lytic or blastic lesions are seen. Bi lateral hip arthroplasties are in place. IMPRESSION: There are no acute infectious or inflammatory findings in the abdomen or pelvis. ACT 112: Negative or not required by law. Electronically signed by: Neto Ram M.D. 07/16/2020 8:57 PM
--- NOTE | 2020-07-16 21:21 | Electrocardiogram Report ---
Test Reason : Blood Pressure : / mmHG Vent. Rate : 112 BPM Atrial Rate : 120 BPM P-R Int : 000 ms QRS Dur : 078 ms QT Int : 286 ms P-R-T Axes : 000 012 229 degrees QTc Int : 390 ms Atrial fibrillation with rapid ventricular response Abnormal ECG When compared with ECG of 30-MAR-2020 15:07, Vent. rate has increased BY 48 BPM T wave inversion now evident in Anterior leads Confirmed by Vish Fragoso ([id number]) on 07/16/2020 9:21:36 PM Referred By: ED Confirmed By:Vish Fragoso
[2020-07-16 21:59] LABS: Adenovirus PCR Not Detected (NotDetected); Bordetella parapertussis PCR Not Detected (NotDetected); Bordetella pertussis PCR Not Detected (NotDetected); Chlamydia pneumoniae PCR Not Detected (NotDetected); Coronavirus 229E PCR Not Detected (NotDetected); Coronavirus CoV-2 (COVID19)PCR Not Detected (NotDetected); Coronavirus HKU1 PCR Not Detected (NotDetected); Coronavirus NL63 PCR Not Detected (NotDetected); Coronavirus OC43PCR Not Detected (NotDetected); Human Metapneumovirus PCR Not Detected (NotDetected); Influenza A PCR Not Detected (NotDetected); Influenza B PCR Not Detected (NotDetected); Mycoplasma pneumoniae PCR Not Detected (NotDetected); Parainfluenza Virus 1 PCR Not Detected (NotDetected); Parainfluenza Virus 2 PCR Not Detected (NotDetected); Parainfluenza Virus 3 PCR Not Detected (NotDetected); Parainfluenza Virus 4 PCR Not Detected (NotDetected); Respiratory Syncytial VirusPCR Not Detected (NotDetected); Rhinovirus/Enterovirus PCR Not Detected (NotDetected)
[2020-07-16] MEDS: PANTOprazole 40 MG in DEXTROSE 5% 100 ML IV SCH (22:09)
--- NOTE | 2020-07-17 00:02 | Critical Care Consultation ---
Date of Consultation July 17, 2020 Assessment & Plan (1) Admitted to intensive care unit: Reason Critically Ill: 69-year-old female with concerns for severe sepsis with septic shock from unknown source at this time requiring close hemodynamic monitoring status post aggressive IV fluid resuscitation and need for initiation of vasopressor support. NEURO - * AMS: * Difficult to assess as patient is w/ h/o baseline dementia. * Very pleasant and able to provide much of HPI. * CT Head unremarkable. * Likely degree of metabolic encephalopathy w/ underlying illness. CARDIAC/VASCULAR - * Hypotension: * Likely 2/2 sepsis and hypovolemia. * Received 2.5L crystalloid in the ED. * Agree w/ pressors at this point. * Patient w/ drop in H&H in the ED. Agree w/ replacement in the bone marrow suppressed individual. * Echo (07/02): EF 55-60%, AR, Mod-Sev . * Monitor on telemetry. RESPIRATORY - * Hypoxia: * No infiltrative changes on CXR/CTA. * ??Chronic thrombus. Anticoagulated on Apixaban. * Supplemental O2 PRN. * COVID 19/Respiratory PCR negative. GI/NUTRITION - * Will guaiac all stools to assess for ??GIB. * No overt findings at this time. * Prophylaxis: Protonix RENAL/LYTES - * Dehydration: * Likely 2/2 poor nutrition. * Continue w/ IVF/Electrolyte replacement. * IVF: Normosol R @ 100 mL/hr - * Cerna in place - Strict I&Os. ENDO - * No h/o DM * BSGs per unit protocol. ISS --> gtt per unit policy. * Hypothyroidism: * TSH wnl. * Continue home Rx HEME - * Anemia: * Moderate drop in H&H today likely dilutional s/p aggressive IVF resuscitation. * This is superimposed on a more chronic anemia w/ probable bone marrow suppression from chemotherapeutics w/ ??infectious component. * Agree w/ initial transfusion in then profoundly hypotensive patient requiring escalating doses of pressors. * CT chest and abd/pelvis w/o acute findings. * Continue to monitor stools for ??losses. ID - * Sepsis like picture in the patient currently receiving chemotherapy. * Initially received Cefepime/Vanc. * Will continue Cefepime pending further labs (i.e. cultures). * Urine, Chest/Abd films, respiratory PCR w/o acute findings. * COVID-19 negative. * Trend fever curve. LINES/IV ACCESS - * PIVs x3 * LEFT Port * Cerna DVT PROPHYLAXIS - * Hold on chemoprophylaxis in the setting of acute anemia w/ ??source. * SCDs I have personally spent 45 minutes of critical care time in the direct management of this patient. This is a life/limb threatening event. This includes time spent evaluating patient, direct bedside care, chart review, placing orders, interpretation of diagnostic studies, discussion with consultants, patient, and family members, as well as other required patient management act ivities. This time is exclusive of all separately billable procedures, and teaching time and separate from and in addition to any other critical care service time. Thank you for allowing us to participate in the care of this patient. Please refer to my attending physician's documentation for any further recommendations. (2) Septic shock: (3) Normocytic anemia: (4) Thrombocytopenia: (5) Acute hypotension: (6) Atrial fibrillation with rapid ventricular response: (7) Hypoxia: (8) Heart disease: (9) Thyroid disease: (10) Right breast cancer with T3 tumor, >5 cm in greatest dimension: (11) Hypothyroidism: (12) Dehydration: (13) Dementia: Supervising Physician Co-Signing Physician Notes seen and examined. discussed with YULIYA and agree with A?P as noted. Refer to my PN from 07/17 for additional details. History of Present Illness History of Present Illness Patient is a 69-year-old female with a significant past medical history of RIGHT-sided breast CA with T3 tumor currently receiving chemotherapy, thyroid disease, heart disease, A. fib with RVR. Per conversation with patient and providers notes, patient was noted to be increasingly weak with falls over the last few days. Patient reportedly had fallen and laid on the ground for moderate amount of time. EMS was contacted and helped the patient from the ground, but she refused transfer to hospital. Eventually, the patient's brother did convince her to come to the hospital. She was noted to be hypotensive. Initially, she did respond to aggressive IV fluid resuscitation. She received broad-spectrum antibiotics. She was found to be pancytopenic. Procalcitonin s lightly elevated. CT of the head, chest, and abdomen/pelvis were found to be unremarkable. COVID-19 testing negative. Patient was started on Levophed in the emergency department. She was transferred to the ICU for further evaluation management. Upon evaluation in the ICU, the patient is awake, and alert. She appears pleasantly confused, but reports no complaints at this time. Specifically, the patient denies any complaints of fevers, chills, headaches, dizziness, lightheadedness, chest pain, palpitations, shortness of breath, nausea, vomiting, or abdominal pain. Allergies Allergy/AdvReac Type Severity Reaction Status Date / Time adhesive tape Allergy Mild Rash Verified 07/16/20 18:40 iodine Allergy Mild Rash Verified 07/16/20 18:40 Home Medications Medication Instructions Recorded Confirmed Type albuterol sulfate 90 mcg/actuation 2 puffs INH Q6H PRN 03/30/20 07/16/20 History aerosol inhaler apixaban 5 mg tablet 5 mg PO BID 03/30/20 07/16/20 History aspirin 81 mg tablet,delayed 81 mg PO QAM 03/30/20 07/16/20 History release atorvastatin 40 mg tablet 40 mg PO PM 03/30/20 07/16/20 History bisoprolol fumarate 5 mg tablet 5 mg PO QAM 03/30/20 07/16/20 History cholecalciferol (vitamin D3) 25 25 mcg PO QAM 03/30/20 07/16/20 History mcg (1,000 unit) capsule digoxin 250 mcg (0.25 mg) tablet 250 mcg PO QAM 03/30/20 07/16/20 History duloxetine 60 mg capsule,delayed 60 mg PO BID 03/30/20 07/16/20 History release sprinkle fluticasone furoate 100 1 puffs INH QAM 03/30/20 07/16/20 History mcg-vilanterol 25 mcg/dose inhalation powder furosemide 20 mg tablet 20 mg PO QAM 03/30/20 07/16/20 History gabapentin 100 mg capsule 200 mg PO TID 03/30/20 07/16/20 History levothyroxine 100 mcg capsule 100 mcg PO QAM 03/30/20 07/16/20 History loratadine 10 mg tablet 10 mg PO QAM PRN 03/30/20 07/16/20 History magnesium oxide 400 mg PO QAM 03/30/20 07/16/20 History montelukast 10 mg tablet 10 mg PO HS 03/30/20 07/16/20 History omeprazole 40 mg capsule,delayed 40 mg PO BID 03/30/20 07/16/20 History release paroxetine HCl 20 mg tablet 20 mg PO DAILY 03/30/20 07/16/20 History pramipexole 1 mg tablet 1 mg PO HS 03/30/20 07/16/20 History Patient History Medical History (Updated 07/17/20 @ 07:11 by Dragan Bonner MD) Anemia Anxiety Aortic stenosis moderate per 03/2020 echo Arthritis Asthma Atrial fibrillation Breast cancer, right Cardiac murmur has had for long time Dementia Depression GERD (gastroesophageal reflux disease) Hearing deficit Hyperlipidemia Hypertension Hypothyroidism 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 related to deviated trachea> no recent surgeries/anesthesia > most recent procedure 2003 [facility] H/O shoulder surgery right total replacement then reverse total > [facility] by Dr. Clifton> 1998 History of arthroscopic knee surgery right History of cardiac cath no stents > over 5 yrs ago > [facility]. sees Dr. Koenig [facility] History of colonoscopy History of hip surgery bilat replacements > [facility] > [facility] > unsure when but prior to 2003 History of tooth extraction History of total right knee replacement 2003 @ [facility] [place] Family History Sister Diabetes Breast cancer Grandmother (Maternal) Thyroid cancer Social History Smoking Status: Never smoker Second Hand Exposure: No; Do You Dip or Chew Tobacco: No; Tobacco Cessation Education Requested by Patient: No Hx Alcohol Use: No Hx Substance Use: No Preferred Language: Nepali Communication Ability: Effective House Detective Required: No Beliefs That Will Affect Care: None marital status: Single Current Living Situation: Alone current occupational status: retired current occupation: former [employer] How many Children do You have: 0 Other Information That Helps Us Care for You: No Feels Safe at Home: Yes Safety Concerns: Feels Safe At This Time Assistive Devices: Cane, Glasses and Walker Review of Systems Review of Systems: A complete 10 point review of systems was reviewed with the patient with pertinent positives and negatives as per history of present illness. All else were negative. Physical Exam Physical Exam: VITAL SIGNS - Vital signs and nursing notes were reviewed. GENERAL - 69-year-old female appearing her stated age who is in no acute distress. Communicates well with provider and answers questions appropriately. SKIN - Small 2.0 cm ulcer w/ surrounding erythema noted to the LEFT elbow. HEAD - NC/AT. EYES - PERRL with EOMI bilaterally. Sclera anicteric. Palpebral conjunctiva pink and moist with no injection noted. EARS - No deformities of external structures noted on gross examination bilaterally. NOSE - Midline and without cyanosis. No epistaxis or purulent drainage noted. MOUTH/OROPHARYNX - Without perioral cyanosis. Buccal mucosa pink and dry. NECK - Neck with FROM. Supple to palpation. No lymphadenopathy noted. No nuchal rigidity. LUNGS - Chest wall symmetric without accessory muscle use, intercostals retractions, or central cyanosis. Normal vesicular breath sounds CTA B/L. No wheezes, rales, or rhonchi appreciated. CARDIAC - RRR with S1/S2. No murmur, rubs, or gallops appreciated. ABDOMEN - Abdominal contour flat without pulsations or visible masses. BS normoactive all four quadrants. No tenderness, palpable masses, hepatosplenomegaly, or ascites noted. EXTREMITIES - No clubbing or peripheral cyanosis. No pretibial edema present. +3/5 radial and dorsalis pedis pulses palpated throughout. NEUROLOGIC - Cranial nerves II through XII grossly intact. Sensory intact to light touch throughout. PSYCH -patient is awake, alert, and oriented to location. She appears pleasantly confused. Results & Data Results & Data ([facility]) Vital Signs (Past 12 Hours) Vital Signs Temp Pulse Resp BP Pulse Ox 07/16/20 23:15 67 25 H 84/49 L 98 07/16/20 23:01 84 32 H 85/39 L 96 07/16/20 23:00 36.7 C 87 25 H 85/39 L 96 07/16/20 22:45 63 24 76/38 L 99 07/16/20 22:30 36.7 C 69 23 74/42 L 98 07/16/20 22:15 36.9 C 76 26 H 82/43 L 95 07/16/20 22:00 76 28 H 75/43 L 99 07/16/20 21:58 73 23 79/42 L 99 07/16/20 21:57 37.0 C 65 28 H 79/42 L 98 07/16/20 21:45 67 27 H 74/41 L 98 07/16/20 21:30 70 29 H 78/43 L 98 07/16/20 21:15 76 25 H 82/53 L 94 07/16/20 21:00 82 19 71/47 L 97 07/16/20 20:46 67 29 H 101/48 L 95 07/16/20 20:01 83 29 H 79/32 L 92 07/16/20 19:45 85 39 H 76/46 L 96 07/16/20 19:41 76 22 64/35 L 94 07/16/20 19:31 91 H 25 H 80/43 L 95 07/16/20 19:30 87 27 H 89/38 L 95 07/16/20 19:15 80 31 H 78/46 L 93 07/16/20 19:00 75 26 H 80/37 L 95 07/16/20 18:45 81 25 H 86/41 L 94 07/16/20 18:30 81 27 H 85/40 L 92 07/16/20 18:24 104 H 27 H 82/49 L 94 07/16/20 18:16 78 32 H 88/40 L 94 07/16/20 18:00 74 25 H 89/40 L 94 07/16/20 17:45 95 H 20 96/35 L 86 L 07/16/20 17:30 76 24 89/42 L 92 07/16/20 17:24 84 26 H 83/45 L 96 07/16/20 17:00 25 H 94 07/16/20 16:31 84 25 H 83/48 L 99 07/16/20 16:15 84 23 75/41 L 98 07/16/20 16:00 96 H 26 H 100 07/16/20 15:58 89 34 H 80/40 L 98 07/16/20 15:57 98 H 38 H 75/53 L 07/16/20 15:15 87 L 07/16/20 15:12 118 H 26 H 100 07/16/20 14:45 37.4 C 118 H 20 90/46 L 94 Coding Level of Care Code Critical Care 1st 30-74 mins Diagnoses Admitted to intensive care unit Z78.9 Septic shock A41.9; R65.21 Normocytic anemia D64.9 Thrombocytopenia D69.6 Acute hypotension I95.9 Atrial fibrillation with rapid ventricular response I48.91 Hypoxia R09.02 Heart disease I51.9 Thyroid disease E07.9 Right breast cancer with T3 tumor, >5 cm in greatest dimension C50.911 Hypothyroidism E03.9 Dehydration E86.0 Dementia F03.90 Time Spent (min) 45
[2020-07-17] MEDS ORDERED: ICU PROTOCOL FOR HYPERGLYCEMIA PRN ×2 (00:13→01:17)
[2020-07-17] MEDS: PANTOprazole 40 MG in DEXTROSE 5% 100 ML IV SCH ×5 (00:47→19:47)
[2020-07-17] MEDS ORDERED: ALBUTEROL HFA 8 GM INHALER INH PRN (00:53)
[2020-07-17] MEDS: ATORVASTATIN 40 MG TAB PO SCH ×2 (01:04→20:53)
[2020-07-17] MEDS ORDERED: HEPARIN 100 UNIT/ML 5ML FLUSH FLUSH PRN (01:37)
[2020-07-17] MEDS ORDERED: CEFEPIME CONSULT ACTIVE PRN (03:15)
[2020-07-17] MEDS ORDERED: CEFEPIME 2,000 MG in SYRINGE 0 ML IV SCH (04:00)
[2020-07-17] MEDS: NORMOSOL-R 1,000 ML IV SCH ×2 (04:05→14:44)
[2020-07-17 04:13] LABS: Hematocrit (blood only) 28.3 % (37-47); Hemoglobin 9.5 g/dL (12.0-16.0); Mean Corpuscular Hemoglobin 30.7 pg (25-34); Mean Corpuscular Volume 91.6 fL (80-100); Nucleated RBC # (auto) 0.03 K/uL (0-0); Nucleated RBC % (auto) 0.3 %; RDW Coefficient of Variation 19.1 % (11.5-14.5); RDW Standard Deviation 63.1 fL (36.4-46.3); Red Blood Count 3.09 M/uL (4.2-5.4); White Blood Count 8.41 K/uL (4.8-10.8)
[2020-07-17 04:22] LABS: INR 1.2 (0.9-1.1)
[2020-07-17 04:35] LABS: Albumin Level 1.8 gm/dl (3.4-5.0); BUN Creatinine Ratio 23.7 (10-20); Calcium 7.9 mg/dl (8.5-10.1); Creatinine Clr Calc Pharmacy 83.2 ml/min; Est GFR (African American) 107.6; Est GFR (Non-African American) 92.9; Magnesium 1.8 mg/dl (1.8-2.4); Potassium 3.7 mmol/L (3.5-5.1)
[2020-07-17 04:38] LABS: Bilirubin Direct 0.5 mg/dl (0-0.2); Bilirubin,Total 1.1 mg/dl (0.2-1); Phosphorus 2.8 mg/dl (2.5-4.9); Total Protein 4.9 gm/dl (6.4-8.2)
[2020-07-17 04:51] LABS: ALC (manual) 0.29 K/uL (1.2-3.4); ANC (manual) 7.39 K/uL (1.4-6.5); Dohle Bodies 1+; Lymphocytes # (manual) 0.29 K/uL (1.2-3.4); Lymphocytes % (manual) 3.4 %; Mean Corpuscular Hgb Conc 33.6 g/dL (32-36); Mean Platelet Volume 11.9 fL (7.4-10.4); Metamyelocytes # (manual) 0.08 K/uL (0-0); Metamyelocytes % (manual) 0.9 %; Monocytes # (manual) 0.66 K/uL (0.11-0.59); Monocytes % (manual) 7.8 %; Neutrophils # (manual) 7.39 K/uL (1.4-6.5); Neutrophils % (manual) 87.9 %; Platelet Count 54 K/uL (130-400); Platelet Estimate Decreased (Normal); Reticulocytes # 0.03 10^6/uL (0.02-0.10); Toxic Granulation 1+
[2020-07-17] MEDS ORDERED: ALBUMIN 25% 12.5 GM/50 ML VIAL IV ONE ×2 (05:50→20:45)
[2020-07-17] MEDS ORDERED: CALCIUM GLUCONATE 10% 2,000 MG in SODIUM CHLORIDE 0.9% 50 ML IV ONE (05:50)
[2020-07-17] MEDS: LEVOTHYROXINE SODIUM 100 MCG TABLET PO SCH (06:30)
[2020-07-17] MEDS ORDERED: VANCOMYCIN HCL 750 MG in SODIUM CHLORIDE 0.9% 250 ML IV SCH (08:00)
[2020-07-17] MEDS: FLUTICASONE/VILANTEROL 100/25MCG 14 PUFFS/INHALER INH SCH (08:01)
[2020-07-17] MEDS: PARoxetine HCL 20 MG TAB PO SCH (08:01)
[2020-07-17] MEDS ORDERED: CALCIUM CHLORIDE 10% 1,000 MG in SODIUM CHLORIDE 0.9% 50 ML IV ONE (09:05)
[2020-07-17] MEDS: ALBUMIN 25% 12.5 GM/50 ML VIAL IV SCH ×4 (09:18→12:32)
--- NOTE | 2020-07-17 09:18 | Critical Care Progress Note ---
Date of Service July 17, 2020 Assessment & Plan (1) Admitted to intensive care unit: 69 yo F admitted to ICU for hypotension requiring pressor support, anemia s/p 2u PRBC transfusion. Neuro - [facility] ICU: Sedation: none Analgesia: tylenol Dementia - baseline. Pt able to carry conversation and discuss symptoms. Cardiac - Hypotension - hypovolemic + relative adrenal insufficiency - somewhat improved with 3L NS bolus in Ed and 2u pRBC - levophed at 0.08 mcg/kg/min, titrating down as able - AM cortisol low at 18, started on hydrocortisone 50 mg IV Q6 + fluorinef 0.1mg AM - Docetaxel noted to cause hypotension in 3% of patients Aortic Stenosis - Echo 07/02 showing moderate to severe Aortic stenosis, with gradient of 58, valve area >1cm - previous echo in 2018 showing valve area 1.4 cm; likely evolving disease - cardiology consulted for recommendations; pt not surgical candidate at this time especially with possible metastatic disease, but still having worsening symptomology Hx TIA - continue statin - hold ASA in setting of possible GIB and thrombocytopenia Afib - rate controlled - continue Digoxin, level 1.5 on admission - holding beta blockers, hypertension medications - on Apixiban in outpatient setting; holding anticoagulation while anemic until blood loss etiology determined Respiratory - Hypoxia - o2 sat dropped to mid 80s in Er, started on 2 L NC - on Breo Ellipta and Ventolin inhaler per med list, no hx in chart of COPD/Asthma/smoking, no PFTs. GI - NPO while requiring pressors Possible GIB - FOBT with bowel movement - normocytic anemia, appropriately resolved from hg 6.8 to 9.5 after 2u RENAL/LYTES - Hypocalcemia - received 2g calcium gluconate IV overnight, Ca 7.9 on repeat testing. 2 more g ordered. Replace lytes as needed. +3.5L for admission - Cerna in place to monitor UOP and Renal perfusion while on pressors ENDO - No hx DM2 BSG checks per unit protocol, SSI HEME - Normocytic Anemia - secondary to chemotherapeutic regimen vs. GIB - Hg increased from 6.8 to 9.5 after 2u pRBC - FOBT pending - no complaints of melanotic stools, vomiting - no bloody UOP Thrombocytopenia - likely secondary to cyclophosphamide - last chemo appointment 07/05, within window ONC - DCIS Breast cancer, metastatic? - diagnosed in march 2020 - follows with cancer care center/Dr Spencer - ER, [place]+, [id number] - - regimen: Docetaxel, adriamycin, cyclophosphamide Q21 days x 6 treatments. last tx 07/05 - new pulmonary nodules on CTA Chest may be metastatic spread, need repeat imaging and follow up. Chemotherapy regimen does not appear to be controlling spread of disease at this time. - WBC 8.41, Neut 7.39, Lymph 0.29 ID - Aseptic Anemia - started on Vanc/Cefepime on admission for concern of sepsis in setting of bone marrow suppression and hypotension - no neutropenia, no fever, lactate WNL, - procal borderline at 0.56 - no source of infection on CT A/P, CTA Chest, no apparent cellulitis, no abdominal tenderness - discontinuing antibiotics at this time with afebrile status, no source of infection, appropriate WBC count and alternate explanation for hypotension INTEGUMENTARY - L elbow sore on admission, covered with wound padding LINES/IV ACCESS - PIVs intact L chest port DVT PROPHYLAXIS - SCDs, holding chemical prophylaxis in setting of questionable GIB Thank you for allowing us to be part of this patient's care. Please refer to Dr. Guerrero's documentation for any further recommendations. (2) Atrial fibrillation: (3) Aortic stenosis: (4) Dementia: (5) DVT prophylaxis: (6) Thrombocytopenia: (7) Hypoxia: (8) Pulmonary nodule seen on imaging study: Admission and Anticipated Discharge Date Admission Date: July 16, 2020 Supervising Physician Co-Signing Physician Notes Patient seen and examined. Discussed with critical care YULIYA overnight and with ICU nurse as well as with patient at bedside. Imaging studies were independent ly reviewed. 69-year-old female with history of breast cancer currently on chemotherapy admitted with syncopal event. She has a history of aortic stenosis which is at least moderate based on last echocardiogram and shows significant decrease in valve area down to about 1 cm based on most recent echocardiogram from a few weeks ago. She was found to be anemic and thrombocytopenic likely secondary to chemotherapy. There was concern about potential sepsis and she was placed on broad-spectrum antibiotics. Her white count is normal, she is not had a febrile nor she been neutropenic and I do not see a source of infection on extensive CT imaging. Her port site appears clean dry and intact. She did have relative adrenal insufficiency with a low cortisol and fairly profound hypoalbuminemia. We will correct calcium and placed on stress dose hydrocortisone. Albumin will be administered. We will discontinue antibiotics at this point in time given lack of a clear source. Her CT scan does show findings potentially concerning for progression of underlying malignancy despite chemotherapy but will defer to serial imaging, follow-up PET scan, and outpatient management per medical oncology. I do not see clear evidence of GI bleeding and it is unclear if this is acute blood loss anemia versus decreased production. She is already received packed cells so checking a reticulocyte count, haptoglobin, or other markers for hemolysis or red cell production are limited. We will continue to trend her numbers and see if she is stable. If we can wean off pressors, she can likely transfer out of the ICU to the hospitalist service. We will continue to follow in the ICU pending improvement in her hemodynamic stability. It is reassuring that her lactate is normal, her urine output is arron quate, and her mental status is appropriate. Subjective No complaints this AM. plan updated as below. Review of Systems Constitutional: + fatigue and + malaise; no fever, no chills and no body aches Respiratory: no cough and no dyspnea Cardiovascular: no chest pain, no dyspnea and no edema Gastrointestinal: no abdominal pain, no nausea, no vomiting, no constipation and no diarrhea/loose stools Genitourinary: no dysuria Physical Exam Physical Exam: VITAL SIGNS - Vital signs and nursing notes were reviewed. GENERAL - thin 69-year-old F laying comfortably in bed in NAD SKIN - Without rashes. HEAD - NC/AT. EYES - PERRL. Sclera anicteric. L eye with exudate and irritation EARS - No deformities of external structures noted on gross examination bilaterally. NOSE - Midline and without cyanosis. No epistaxis or purulent drainage noted. MOUTH/OROPHARYNX - Without perioral cyanosis. LUNGS - end expiratory wheeze,no focal crackles, rhonchi CARDIAC - Afib, regular rate. Holosystolic crescendo-decrescendo murmur audible in all heart zones, no rubs or gallops appreciated. ABDOMEN -soft nontender nondistended with normal bowel sounds. EXTREMITIES - No clubbing or peripheral cyanosis. No pretibial edema present. NEUROLOGIC - No focal neurological deficits noted on exam. Chest (Breasts): Additional Comments: L port in use, without surrounding tenderness or erythema Results & Data Results & Data ([facility]) Vital Signs (Past 12 Hours) Vital Signs Temp Pulse Pulse Resp BP BP Pulse Ox 07/17/20 08:30 75 24 96 07/17/20 08:21 87 25 H 100/57 L 93 07/17/20 08:00 36.2 C L 76 27 H 97 07/17/20 07:47 90 29 H 115/58 L 96 07/17/20 07:30 77 21 97 07/17/20 07:17 68 25 H 101/50 L 95 07/17/20 07:00 71 29 H 96 07/17/20 06:47 68 27 H 93/58 L 95 07/17/20 06:45 68 26 H 96 07/17/20 06:00 74 35 H 97 07/17/20 05:47 68 29 H 100/49 L 94 07/17/20 05:45 62 28 H 95 07/17/20 05:30 72 24 95 07/17/20 05:17 60 26 H 93/46 L 95 07/17/20 05:15 61 28 H 95 07/17/20 05:00 83 37 H 97 07/17/20 04:47 75 19 91/46 L 95 07/17/20 04:45 70 26 H 95 07/17/20 04:30 79 28 H 95 07/17/20 04:17 36.5 C 67 23 97/51 L 96 07/17/20 04:15 64 26 H 95 07/17/20 04:00 65 17 97 07/17/20 03:47 60 29 H 96/57 L 97 07/17/20 03:45 66 26 H 96 07/17/20 03:32 58 L 26 H 100/49 L 96 07/17/20 03:30 62 28 H 96 07/17/20 03:15 60 23 97 07/17/20 03:08 64 26 H 80/49 L 97 07/17/20 03:00 66 26 H 97 07/17/20 02:45 61 27 H 97 07/17/20 02:30 59 L 26 H 97 07/17/20 02:15 67 27 H 97 07/17/20 02:06 67 24 97/60 L 97 07/17/20 02:01 68 25 H 108/52 L 95 07/17/20 02:00 81 23 95 07/17/20 01:57 71 21 97/55 L 94 07/17/20 01:51 66 29 H 99/48 L 96 07/17/20 01:49 36.4 C L 62 19 99/53 L 96 07/17/20 01:46 68 31 H 99/53 L 96 07/17/20 01:45 59 L 31 H 96 07/17/20 01:43 65 07/17/20 01:41 69 30 H 90/46 L 98 07/17/20 01:36 70 26 H 92/48 L 98 07/17/20 01:31 65 27 H 91/44 L 98 07/17/20 01:30 36.4 C L 67 27 H 90/46 L 99 07/17/20 01:26 59 L 25 H 86/53 L 99 07/17/20 01:21 66 33 H 95/43 L 99 07/17/20 01:16 74 24 91/52 L 98 07/17/20 01:15 66 24 98 07/17/20 01:11 64 24 89/51 L 98 07/17/20 01:07 69 25 H 90/48 L 98 07/17/20 01:01 62 31 H 98/48 L 98 07/17/20 01:00 36.4 C L 73 25 H 98/48 L 98 07/17/20 00:57 66 33 H 89/43 L 99 07/17/20 00:53 60 26 H 98 07/17/20 00:52 61 28 H 89/46 L 97 07/17/20 00:51 64 07/17/20 00:46 60 33 H 92/47 L 99 07/17/20 00:45 36.4 C L 56 L 34 H 92/47 L 96 07/17/20 00:41 66 36 H 82/56 L 96 07/17/20 00:36 62 25 H 81/54 L 98 07/17/20 00:30 36.7 C 67 30 H 81/51 L 96 07/17/20 00:22 75 19 81/51 L 95 07/17/20 00:19 36.4 C L 81 20 94/41 L 98 07/17/20 00:15 66 35 H 90 07/17/20 00:07 77 26 H 93/45 L 98 07/17/20 00:03 36.4 C L 71 18 81/53 L 92 07/17/20 00:00 36.4 C L 69 18 93/57 L 91 07/16/20 23:53 72 27 H 94/41 L 97 07/16/20 23:45 79 24 92 07/16/20 23:44 81 19 97 07/16/20 23:15 67 25 H 84/49 L 98 07/16/20 23:01 84 32 H 85/39 L 96 07/16/20 23:00 36.7 C 87 25 H 85/39 L 96 07/16/20 22:45 63 24 76/38 L 99 07/16/20 22:30 36.7 C 69 23 74/42 L 98 07/16/20 22:15 36.9 C 76 26 H 82/43 L 95 07/16/20 22:00 76 28 H 75/43 L 99 07/16/20 21:58 73 23 79/42 L 99 07/16/20 21:57 37.0 C 65 28 H 79/42 L 98 07/16/20 21:45 67 27 H 74/41 L 98 07/16/20 21:30 70 29 H 78/43 L 98 Pulse Ox 07/17/20 08:30 07/17/20 08:21 07/17/20 08:00 07/17/20 07:47 07/17/20 07:30 07/17/20 07:17 07/17/20 07:00 07/17/20 06:47 07/17/20 06:45 07/17/20 06:00 07/17/20 05:47 07/17/20 05:45 07/17/20 05:30 07/17/20 05:17 07/17/20 05:15 07/17/20 05:00 07/17/20 04:47 07/17/20 04:45 07/17/20 04:30 07/17/20 04:17 07/17/20 04:15 07/17/20 04:00 07/17/20 03:47 07/17/20 03:45 07/17/20 03:32 07/17/20 03:30 07/17/20 03:15 07/17/20 03:08 07/17/20 03:00 07/17/20 02:45 07/17/20 02:30 07/17/20 02:15 07/17/20 02:06 07/17/20 02:01 07/17/20 02:00 07/17/20 01:57 07/17/20 01:51 07/17/20 01:49 07/17/20 01:46 07/17/20 01:45 07/17/20 01:43 07/17/20 01:41 07/17/20 01:36 07/17/20 01:31 07/17/20 01:30 07/17/20 01:26 07/17/20 01:21 07/17/20 01:16 07/17/20 01:15 07/17/20 01:11 07/17/20 01:07 07/17/20 01:01 07/17/20 01:00 07/17/20 00:57 07/17/20 00:53 07/17/20 00:52 07/17/20 00:51 94 07/17/20 00:46 07/17/20 00:45 07/17/20 00:41 07/17/20 00:36 07/17/20 00:30 07/17/20 00:22 07/17/20 00:19 07/17/20 00:15 07/17/20 00:07 07/17/20 00:03 07/17/20 00:00 07/16/20 23:53 07/16/20 23:45 07/16/20 23:44 07/16/20 23:15 07/16/20 23:01 07/16/20 23:00 07/16/20 22:45 07/16/20 22:30 07/16/20 22:15 07/16/20 22:00 07/16/20 21:58 07/16/20 21:57 07/16/20 21:45 07/16/20 21:30 Laboratory Results WBC 8.41 K/uL (4.8-10.8) 07/17/20 04:01 RBC 3.09 M/uL (4.2-5.4) L 07/17/20 04:01 Hgb 9.5 g/dL (12.0-16.0) L 07/17/20 04:01 Hct 28.3 % (37-47) L 07/17/20 04:01 MCV 91.6 fL (80-100) 07/17/20 04:01 MCH 30.7 pg (25-34) 07/17/20 04:01 MCHC 33.6 g/dL (32-36) 07/17/20 04:01 RDW Std Deviation 63.1 fL (36.4-46.3) H 07/17/20 04:01 RDW Coeff of Demetra 19.1 % (11.5-14.5) H 07/17/20 04:01 Plt Count 54 K/uL (130-400) L 07/17/20 04:01 MPV 11.9 fL (7.4-10.4) H 07/17/20 04:01 Immature Gran % (Auto) 2.4 % 07/16/20 15:35 Neut % (Auto) 77.9 % 07/16/20 15:35 Lymph % (Auto) 3.3 % 07/16/20 15:35 [place] % (Auto) 16.4 % 07/16/20 15:35 Eos % (Auto) 0.0 % 07/16/20 15:35 Baso % (Auto) 0.0 % 07/16/20 15:35 Reticulocyte % (Auto) 1.0 % (0.5-2.0) 07/17/20 04:01 Neut # (Auto) 4.53 K/uL (1.4-6.5) 07/16/20 15:35 Lymph # (Auto) 0.19 K/uL (1.2-3.4) L 07/16/20 15:35 [place] # (Auto) 0.95 K/uL (0.11-0.59) H 07/16/20 15:35 Eos # (Auto) 0.00 K/uL (0-0.5) 07/16/20 15:35 Baso # (Auto) 0.00 K/uL (0-0.2) 07/16/20 15:35 Reticulocyte # 0.03 10^6/uL (0.02-0.10) 07/17/20 04:01 Immature Gran # (Auto) 0.14 K/uL (0.00-0.02) H 07/16/20 15:35 Absolute Nucleated RBC 0.03 K/uL (0-0) H 07/17/20 04:01 Nucleated RBC % (auto) 0.3 % 07/17/20 04:01 Neutrophils % (Manual) 87.9 % 07/17/20 04:01 Lymphocytes % (Manual) 3.4 % 07/17/20 04:01 Monocytes % (Manual) 7.8 % 07/17/20 04:01 Metamyelocytes % (Man) 0.9 % 07/17/20 04:01 Neutrophils # (Manual) 7.39 K/uL (1.4-6.5) H 07/17/20 04:01 Total Absolute Neuts 7.39 K/uL (1.4-6.5) H 07/17/20 04:01 Lymphocytes # (Manual) 0.29 K/uL (1.2-3.4) L 07/17/20 04:01 Total Abs Lymphocytes 0.29 K/uL (1.2-3.4) L 07/17/20 04:01 Monocytes # (Manual) 0.66 K/uL (0.11-0.59) H 07/17/20 04:01 Metamyelocytes # (Man) 0.08 K/uL (0-0) H 07/17/20 04:01 Toxic Granulation 1+ 07/17/20 04:01 Dohle Bodies 1+ 07/17/20 04:01 Platelet Estimate Decreased (Normal) L 07/17/20 04:01 PT 13.0 Seconds (9.0-12.0) H 07/17/20 04:01 INR 1.2 (0.9-1.1) H 07/17/20 04:01 APTT 43.4 Seconds (21.0-31.0) H 07/16/20 15:35 PTT Ratio 1.6 07/16/20 15:35 Sodium 137 mmol/L (136-145) 07/17/20 04:01 Potassium 3.7 mmol/L (3.5-5.1) 07/17/20 04:01 Chloride 106 mmol/L (98-107) 07/17/20 04:01 Carbon Dioxide 29 mmol/L (21-32) 07/17/20 04:01 Anion Gap 2.0 (3-11) L 07/17/20 04:01 BUN 14 mg/dl (7-18) 07/17/20 04:01 Creatinine 0.59 mg/dl (0.6-1.2) L D 07/17/20 04:01 Est Cr Clr Drug Dosing 83.2 ml/min 07/17/20 04:01 Est GFR ( Amer) 107.6 07/17/20 04:01 Est GFR (Non-Af Amer) 92.9 07/17/20 04:01 BUN/Creatinine Ratio 23.7 (10-20) H 07/17/20 04:01 Glucose 120 mg/dl (70-99) H 07/17/20 04:01 POC Glucose 122 mg/dl (70-99) H 07/17/20 06:32 Lactate 1.2 mmol/L (0.4-2.0) 07/16/20 15:35 Calcium 7.9 mg/dl (8.5-10.1) L 07/17/20 04:01 Phosphorus 2.8 mg/dl (2.5-4.9) 07/17/20 04:01 Magnesium 1.8 mg/dl (1.8-2.4) 07/17/20 04:01 Total Bilirubin 1.1 mg/dl (0.2-1) H 07/17/20 04:01 Direct Bilirubin 0.5 mg/dl (0-0.2) H 07/17/20 04:01 AST 14 U/L (15-37) L 07/17/20 04:01 ALT 16 U/L (12-78) 07/17/20 04:01 Alkaline Phosphatase 83 U/L (45-117) 07/17/20 04:01 Total Creatine Kinase 84 U/L (26-192) 07/17/20 04:01 Troponin I 0.039 ng/ml (0-0.045) 07/16/20 15:35 Total Protein 4.9 gm/dl (6.4-8.2) L 07/17/20 04:01 Albumin 1.8 gm/dl (3.4-5.0) L 07/17/20 04:01 Globulin 3.4 gm/dl (2.5-4.0) 07/16/20 15:35 Albumin/Globulin Ratio 0.6 (0.9-2) L 07/16/20 15:35 Procalcitonin 0.56 ng/ml (0-0.5) H 07/17/20 04:01 TSH 1.560 uIu/ml (0.300-4.500) 07/16/20 15:35 Random Cortisol 18.66 mcg/dl 07/17/20 04:01 Urine Color [place] 07/16/20 16:03 Urine Appearance Clear (Clear) 07/16/20 16:03 Urine pH 6.0 (4.5-7.5) 07/16/20 16:03 Ur Specific Nursery 1.023 (1.000-1.030) 07/16/20 16:03 Urine Protein 1+ (Negative) H 07/16/20 16:03 Urine Glucose (UA) Negative (Negative) 07/16/20 16:03 Urine Ketones Negative (Negative) 07/16/20 16:03 Urine Blood Negative (Negative) 07/16/20 16:03 Urine Nitrite Negative (Negative) 07/16/20 16:03 Urine Bilirubin Negative (Negative) 07/16/20 16:03 Urine Urobilinogen Negative (Negative) 07/16/20 16:03 Ur Leukocyte Esterase Trace (Negative) H 07/16/20 16:03 Urine WBC (Auto) 0 /hpf (0-5) 07/16/20 16:03 Urine RBC (Auto) 0-4 /hpf (0-4) 07/16/20 16:03 U Hyaline Cast (Auto) 1-5 /lpf (0-5) 07/16/20 16:03 U Epithel Cells (Auto) 0-5 /lpf (0-5) 07/16/20 16:03 Urine Bacteria (Auto) Negative (Negative) 07/16/20 16:03 Nasal Screen MRSA (PCR) Negative (Negative) 07/17/20 00:15 Digoxin 1.5 ng/ml (0.8-2.0) 07/17/20 04:01 Adenovirus (PCR) Not Detected (NotDetected) 07/16/20 20:55 B. pertussis DNA (PCR) Not Detected (NotDetected) 07/16/20 20:55 B.parapertussis DNA PCR Not Detected (NotDetected) 07/16/20 20:55 C. pneumoniae DNA (PCR) Not Detected (NotDetected) 11/27/20 20:55 Coronavirus OC43 (PCR) Not Detected (NotDetected) 07/16/20 20:55 Coronavirus HKU1 (PCR) Not Detected (NotDetected) 07/16/20 20:55 Coronavirus 229E (PCR) Not Detected (NotDetected) 07/16/20 20:55 COVID-19 Eval Order Covid19 IDNow [facility] 07/16/20 15:38 COVID-19 PCR Not Detected (NotDetected) 07/16/20 20:55 Coronavirus NL63 (PCR) Not Detected (NotDetected) 07/16/20 20:55 Human Metapneumovir PCR Not Detected (NotDetected) 07/16/20 20:55 Influenza Type A (PCR) Not Detected (NotDetected) 07/16/20 20:55 Influenza Type B (PCR) Not Detected (NotDetected) 07/16/20 20:55 M. pneumoniae (PCR) Not Detected (NotDetected) 07/16/20 20:55 Parainfluenza 1 (PCR) Not Detected (NotDetected) 07/16/20 20:55 Parainfluenza 2 (PCR) Not Detected (NotDetected) 07/16/20 20:55 Parainfluenza 3 (PCR) Not Detected (NotDetected) 07/16/20 20:55 Parainfluenza 4 (PCR) Not Detected (NotDetected) 07/16/20 20:55 RSV (PCR) Not Detected (NotDetected) 07/16/20 20:55 Entero/Rhino (PCR) Not Detected (NotDetected) 07/16/20 20:55 SARS-CoV-2, RNA, NAAT NEGATIVE (NEGATIVE) 07/16/20 15:38 Blood Type A Negative 07/16/20 19:48 Blood Type Recheck A Negative 07/16/20 15:35 Antibody Screen NEGATIVE 07/16/20 19:48 Crossmatch See Detail 07/16/20 19:48 Resident Activity Tracking Resident Involvement: Resident Care Provided Care Provided: Adult Hospital Medicine
[2020-07-17] MEDS: FLUDROCORTISONE ACETATE 0.1 MG TAB PO SCH (09:36)
[2020-07-17 09:59] LABS: Hematocrit (blood only) 26.6 % (37-47); Hemoglobin 8.9 g/dL (12.0-16.0)
[2020-07-17] MEDS: HYDROCORTISONE SOD 50 MG in SYRINGE 0 ML IV SCH ×2 (11:42→16:26)
--- NOTE | 2020-07-17 12:17 | Billing Data ---
Date of Service July 17, 2020 Coding Level of Care Code Critical Care 1st 30-74 mins Time Spent (min) 40 Comment 40 minutes critical care time including management of life-threatening illness.
--- NOTE | 2020-07-17 12:53 | Hospitalist Progress Note ---
Date of Service July 17, 2020 Assessment & Plan (1) Septic shock: Suspected with source bacteremia from probable UTI. Port +/- open wound on back also concern, but less likely with Gram(-). - Continue Levophed per ICU - Empiric antibiotics with vancomycin and cefepime. - Follow up blood cultures (one from port, one peripheral) (2) Right breast cancer with T3 tumor, >5 cm in greatest dimension: ER positive HER2/jose negative. Currently undergoing neoadjuvant chemotherapy under Dr Spencer. - Will follow up on Sunday with Cancer Center. (3) Dehydration: Poor oral intake. Adequate fluid resuscitation with 2.5L NSS in ER. - Further IV fluids per ICU. (4) Atrial fibrillation with rapid ventricular response: Improved rate with IV fluids suggestive of dehydrated state in ER. - Holding apixaban in setting of possible GI bleed as above. - Per ICU (5) Normocytic anemia: Concerning drop in ER from Hgb 10.7 [07/05] to 8.1, now 6.8. Likely secondary to chemotherapy bone marrow suppression but difficult to rule out GI bleed from unreliable history from patient. - S/p 2 units PRBCs on 07/16 - Further transfusion per ICU (6) Thrombocytopenia: Suspect secondary to bone marrow suppression with chemotherapy. - Monitor with AM labs. (7) Hypoxia: Aim O2 sats > 94%. - Oxygen supplement as usual (8) Dementia: On no medications for such. At risk of delirium. Unclear baseline. - Frequent reorientation. (9) Aortic stenosis: Notable recent echocardiogram with moderate-severe aortic stenosis. Follows with cardiology (Dr Koenig). - Monitor (10) DVT prophylaxis: Holding apixaban in setting of possible GI bleed. - SCDs Admission and Anticipated Discharge Date Admission Date: July 16, 2020 Subjective No major pain at this time. She is very concerned about her brother knowing what is going on. Reports no fevers/chills, chest pain, shortness of breath, abdominal pain, nausea, or vomiting. Physical Exam Constitutional: WD/WN, vitals as above Eyes: EOM intact bilaterally; no conjunctival abnormality ENMT: external ear and nose normal, oropharynx normal Neck: trachea midline, no thyromegaly normal visual inspection Respiratory: + labored breathing and + tachypneic Auscultation: + crackles; no wheezes Cardiovascular: RRR, no murmur, no edema Gastrointestinal (Abdomen): Inspection/Auscultation: abdomen normal to inspection; abdomen not distended Musculoskeletal: no cyanosis or clubbing, extremities motor strength 5/5 Skin: no rashes, warm and dry Neurologic: moves all extremities and awake Psychiatric: Orientation: alert, oriented to person and cooperative Results & Data Results & Data ([facility]) Vital Signs (Past 12 Hours) Vital Signs Temp Pulse Resp BP Pulse Ox Pulse Ox 07/17/20 11:30 82 37 H 94 07/17/20 11:17 85 43 H 103/59 L 95 07/17/20 11:00 85 39 H 95 07/17/20 10:47 98 H 31 H 112/54 L 94 07/17/20 10:30 74 29 H 93 07/17/20 10:17 80 35 H 97/52 L 93 07/17/20 10:00 73 27 H 92 07/17/20 09:47 80 25 H 103/47 L 93 07/17/20 09:30 71 29 H 95 07/17/20 09:17 78 29 H 95/44 L 96 07/17/20 09:00 96 H 23 96 07/17/20 08:47 78 26 H 104/62 96 07/17/20 08:30 75 24 96 07/17/20 08:21 87 25 H 100/57 L 93 07/17/20 08:00 36.2 C L 76 27 H 97 07/17/20 07:47 90 29 H 115/58 L 96 07/17/20 07:30 77 21 97 07/17/20 07:17 68 25 H 101/50 L 95 07/17/20 07:00 71 29 H 96 07/17/20 06:47 68 27 H 93/58 L 95 07/17/20 06:45 68 26 H 96 07/17/20 06:00 74 35 H 97 07/17/20 05:47 68 29 H 100/49 L 94 07/17/20 05:45 62 28 H 95 07/17/20 05:30 72 24 95 07/17/20 05:17 60 26 H 93/46 L 95 07/17/20 05:15 61 28 H 95 07/17/20 05:00 83 37 H 97 07/17/20 04:47 75 19 91/46 L 95 07/17/20 04:45 70 26 H 95 07/17/20 04:30 79 28 H 95 07/17/20 04:17 36.5 C 67 23 97/51 L 96 07/17/20 04:15 64 26 H 95 07/17/20 04:00 65 17 97 07/17/20 03:47 60 29 H 96/57 L 97 07/17/20 03:45 66 26 H 96 07/17/20 03:32 58 L 26 H 100/49 L 96 07/17/20 03:30 62 28 H 96 07/17/20 03:15 60 23 97 07/17/20 03:08 64 26 H 80/49 L 97 07/17/20 03:00 66 26 H 97 07/17/20 02:45 61 27 H 97 07/17/20 02:30 59 L 26 H 97 07/17/20 02:15 67 27 H 97 07/17/20 02:06 67 24 97/60 L 97 07/17/20 02:01 68 25 H 108/52 L 95 07/17/20 02:00 81 23 95 07/17/20 01:57 71 21 97/55 L 94 07/17/20 01:51 66 29 H 99/48 L 96 07/17/20 01:49 36.4 C L 62 19 99/53 L 96 07/17/20 01:46 68 31 H 99/53 L 96 07/17/20 01:45 59 L 31 H 96 07/17/20 01:43 65 07/17/20 01:41 69 30 H 90/46 L 98 07/17/20 01:36 70 26 H 92/48 L 98 07/17/20 01:31 65 27 H 91/44 L 98 07/17/20 01:30 36.4 C L 67 27 H 90/46 L 99 07/17/20 01:26 59 L 25 H 86/53 L 99 07/17/20 01:21 66 33 H 95/43 L 99 07/17/20 01:16 74 24 91/52 L 98 07/17/20 01:15 66 24 98 07/17/20 01:11 64 24 89/51 L 98 07/17/20 01:07 69 25 H 90/48 L 98 07/17/20 01:01 62 31 H 98/48 L 98 07/17/20 01:00 36.4 C L 73 25 H 98/48 L 98 07/17/20 00:57 66 33 H 89/43 L 99 07/17/20 00:53 60 26 H 98 07/17/20 00:52 61 28 H 89/46 L 97 07/17/20 00:51 64 94 PG Care Time/CCT Total # of Minutes Spent Total Time Spent with Patient: Total time spent is greater than 50% in coordination of care (as documented) at patient's floor/unit and/or counseling patient: Coding Level of Care Code 97651 Subseq Hosp Care Lvl 3 Diagnoses Septic shock A41.9; R65.21 Right breast cancer with T3 tumor, >5 cm in greatest dimension C50.911 Dehydration E86.0 Atrial fibrillation with rapid ventricular response I48.91 Normocytic anemia D64.9 Thrombocytopenia D69.6 Hypoxia R09.02 Dementia F03.90 Aortic stenosis I35.0 DVT prophylaxis Z29.9
--- NOTE | 2020-07-17 13:14 | Cardiology Consultation ---
Date of Consultation July 17, 2020 Assessment & Plan (1) Aortic stenosis: Patient with moderate to severe but noncritical aortic stenosis on recent echocardiogram and exam. Unusual that she would have progressed from having no gradient just a year ago to substantial stenosis currently, but auscultation is consistent with significant but noncritical aortic stenosis (diminished but audible aortic closure sound). I could not elicit any symptoms suggestive of exertional angina, exertional syncope, or other "warning" symptoms to suggest critical aortic stenosis. Her generalized weakness and falls seem to be more related to her overall frailty with marked anemia, in part secondary to chemotherapy. Do not feel that her current level of aortic stenosis impacts her current management, certainly would attempt to avoid profound hypotension (less than 70mmHg systolic), but agree that a goal of greater than 90 mmHg systolic BP is appropriate. She seems well perfused presently, with good mentation and warm extremities as well as brisk distal pulses. Agree with current ICU management. As noted, no particular change in management based on her aortic stenosis. She would not be a candidate for transcatheter aortic valve replacement given her likely limited prognosis due to metastatic cancer, as well as her general frailty, along with the lack of clear aortic stenosis related symptoms at recent baseline. (2) Hypotension: Multifactorial, responding to therapy, aortic stenosis is not critical enough to be causing hypotension in and of itself. Agree with current management including fluid resuscitation, pressors, and stress dose steroids. (3) Atrial fibrillation: Obviously vasoactive medications need to be held in the face of hypotension. Fortunately, her current ventricular rate response is physiologic and appropriate for her condition (in ICU with sepsis). Agree with continuing digoxin while monitoring renal function to allow for some degree of rate control. (4) Anemia: Given anemia and thrombocytopenia, not a candidate for anticoagulation for her atrial fibrillation. Thank you for this consultation. History of Present Illness Reason for Consultation: /hypotension Requesting Physician: Claudia Roque MD Attending Physician: Raffy Reaves MD History of Present Illness 69-year-old woman with likely metastatic right breast carcinoma (undergoing chemotherapy) who was admitted 07/16/2020 with apparent sepsis after several days of progressive weakness with several nontraumatic falls. She had a cardiac catheterization by Dr. Koenig in [place] in 2018 which showed only mild nonocclusive coronary disease and no evidence of aortic valve gradient. However, a recent echocardiogram appeared to demonstrate moderate to severe aortic stenosis (valve area 1.0 cm). Upon admission, patient was noted to be markedly hypotensive and was given fluid resuscitation and placed on norepinephrine infusion. She was also given stress dose steroids on the basis of a low a.m. cortisol. At her recent baseline, she walks with a walker but does not note dyspnea on exertion, orthopnea, PND, or ankle edema. She does note generalized weakness and had several falls, but denies loss of consciousness. Unable to elicit specific exertional symptoms, she complains of more of a generalized weakness. At the time of my evaluation this morning, she felt fatigued and tired but had no complaints at bedrest. She was still on a low dose of norepinephrine infusion, systolic blood pressure was in the 100 mmHg range and perfusion appeared good. Allergies Allergy/AdvReac Type Severity Reaction Status Date / Time adhesive tape Allergy Mild Rash Verified 07/16/20 18:40 iodine Allergy Mild Rash Verified 07/16/20 18:40 Home Medications Medication Instructions Recorded Confirmed Type albuterol sulfate 90 mcg/actuation 2 puffs INH Q6H PRN 03/30/20 07/16/20 History aerosol inhaler apixaban 5 mg tablet 5 mg PO BID 03/30/20 07/16/20 History aspirin 81 mg tablet,delayed 81 mg PO QAM 03/30/20 07/16/20 History release atorvastatin 40 mg tablet 40 mg PO PM 03/30/20 07/16/20 History bisoprolol fumarate 5 mg tablet 5 mg PO QAM 03/30/20 07/16/20 History cholecalciferol (vitamin D3) 25 25 mcg PO QAM 03/30/20 07/16/20 History mcg (1,000 unit) capsule digoxin 250 mcg (0.25 mg) tablet 250 mcg PO QAM 03/30/20 07/16/20 History duloxetine 60 mg capsule,delayed 60 mg PO BID 03/30/20 07/16/20 History release sprinkle fluticasone furoate 100 1 puffs INH QAM 03/30/20 07/16/20 History mcg-vilanterol 25 mcg/dose inhalation powder furosemide 20 mg tablet 20 mg PO QAM 03/30/20 07/16/20 History gabapentin 100 mg capsule 200 mg PO TID 03/30/20 07/16/20 History levothyroxine 100 mcg capsule 100 mcg PO QAM 03/30/20 07/16/20 History loratadine 10 mg tablet 10 mg PO QAM PRN 03/30/20 07/16/20 History magnesium oxide 400 mg PO QAM 03/30/20 07/16/20 History montelukast 10 mg tablet 10 mg PO HS 03/30/20 07/16/20 History omeprazole 40 mg capsule,delayed 40 mg PO BID 03/30/20 07/16/20 History release paroxetine HCl 20 mg tablet 20 mg PO DAILY 03/30/20 07/16/20 History pramipexole 1 mg tablet 1 mg PO HS 03/30/20 07/16/20 History Patient History Medical History Anemia Anxiety Aortic stenosis moderate per 03/2020 echo Arthritis Asthma Atrial fibrillation Breast cancer, right Cardiac murmur has had for long time Dementia Depression GERD (gastroesophageal reflux disease) Hearing deficit Hyperlipidemia Hypertension Hypothyroidism 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 related to deviated trachea> no recent surgeries/anesthesia > most recent procedure 2003 [facility] H/O shoulder surgery right total replacement then reverse total > [facility] by Dr. Clifton> 1998 History of arthroscopic knee surgery right History of cardiac cath no stents > over 5 yrs ago > [facility]. sees Dr. Koenig [facility] History of colonoscopy History of hip surgery bilat replacements > [facility] > [facility] > unsure when but prior to 2003 History of tooth extraction History of total right knee replacement 2003 @ [facility] Family History Thyroid cancer Grandmother (Maternal) Diabetes Sister Breast cancer Sister Social History Smoking Status: Never smoker Second Hand Exposure: No; Do You Dip or Chew Tobacco: No; Tobacco Cessation Education Requested by Patient: No Hx Alcohol Use: No Hx Substance Use: No Preferred Language: Setswana Communication Ability: Effective Quality Management Coordinator Required: No Beliefs That Will Affect Care: None marital status: Single Current Living Situation: Alone current occupational status: retired 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 How many Children do You have: 0 Other Information That Helps Us Care for You: No Feels Safe at Home: Yes Safety Concerns: Feels Safe At This Time Assistive Devices: Cane, Glasses and Walker Review of Systems Constitutional: + fatigue and + weight loss; no fever, no chills and no weight gain Eyes: no problem reported Ear, Nose, Mouth, Throat: no problem reported Respiratory: no cough and no dyspnea Cardiovascular: as per Subjective / HPI Gastrointestinal: no blood in stools Genitourinary: no problem reported Integumentary: no rash and no new lesions Neurologic: + falls Psychiatric: no problem reported Hematologic / Lymphatic: as per Subjective / HPI Physical Exam Physical Exam: Chronically ill-appearing white female in no acute distress. Afebrile. Systolic blood pressure was in the 70s, now 100 mmHg range. Pulse 80-100 bpm and irregular. Skin: no ecchymoses or generalized lesions. HEENT: unremarkable. Neck: Jugular venous pulse with increased respiratory variation but not obviously elevated, transmitted murmur to carotids. Lungs: Moderately decreased breath sounds but generally clear. Cardiac: Irregular rhythm with 4/6 crescendo decrescendo systolic ejection murmur right upper sternal border rating to the carotids and left sternal border, no diastolic murmur. Diminished but audible aortic closure sound. Chest: Access port left subclavian region. Abdomen benign. Extremities: no edema, brisk radial and dorsalis pedis pulses. Extremities warm. Neurologic: normal affect and conversation, grossly nonfocal. Results & Data ([facility]) Laboratory Results Hemoglobin was 6.8 (on chemotherapy), after transfusion up to 8.9. Platelet count 54,000. Normal white count. Normal electrolytes, BUN 14, creatinine 0.59. Diagnostic Findings Echocardiogram 07/02/2020 showed normal systolic function, moderate to severe aortic stenosis (valve area 1.0 cm), mild aortic regurgitation, moderate pulmonary hypertension. ECG showed atrial fibrillation with ventricular rate of 112 bpm, anterolateral ST-T wave abnormalities (new compared with 03/30/2020 ECG). Chest CT 07/16/2020 showed additional pulmonary and pleural-based nodules compared with 03/29/2020, suspicious for progressive metastatic disease. PET scan March 2020 showed right breast mass as well as right axillary lymph node activity and left upper lobe activity, suspicious for metastatic disease.
[2020-07-17 16:04] LABS: Hematocrit (blood only) 26.5 % (37-47); Hemoglobin 9.2 g/dL (12.0-16.0)
[2020-07-17] MEDS: DIGOXIN 0.25 MG TAB PO SCH (16:26)
[2020-07-17] MEDS: CEFEPIME 2,000 MG in SYRINGE 0 ML IV SCH (16:26)
--- NOTE | 2020-07-17 20:08 | XRay Report ---
XR chest 1V portable HISTORY: 69 years-old Female sob acute shortness of breath COMPARISON: Chest radiograph and CTA chest 07/16/2020 TECHNIQUE: Portable AP view of the chest FINDINGS: Unchanged left subclavian Momzhz-h-Yufh catheter with duplicated SVC. Pulmonary vascular congestion w ith new reticular opacities. Small pleural effusions with bibasilar densities. No pneumothorax. Previ ously noted left lung pulmonary nodules are not well visualized. Healed remote left-sided rib fractur es. Degenerative changes of the spine and left shoulder. Reverse right shoulder total joint arthropla sty. IMPRESSION: 1. Cardiomegaly with interval development of pulmonary edema with small pleural effusions and mild bi basilar opacities. 2. Left upper lobe pulmonary nodules are better characterized on comparison CTA of the chest. ACT 112: Negative or not required by law. The above report was generated using voice recognition software. It may contain grammatical, syntax o r spelling errors. Electronically signed by: Ilan Rolon M.D. 07/17/2020 8:07 PM
[2020-07-17 21:56] LABS: Hematocrit (blood only) 25.1 % (37-47); Hemoglobin 8.7 g/dL (12.0-16.0)
[2020-07-17] MEDS ORDERED: PHARMACY GLYCEMIC MGMT CONSULT PRN (22:06)
[2020-07-17] MEDS: INSULIN ASPART 100 UNITS/ML 3 ML PEN SC SCH (22:13)
[2020-07-17] MEDS ORDERED: INSULIN GLARGINE SOLOSTAR 100 UNITS/ML 3 ML PEN SC ONE (22:15)
[2020-07-17] MEDS ORDERED: CARBOHYDRATES FOR HYPOGLYCEMIA PO PRN (22:15)
[2020-07-17] MEDS ORDERED: GLUCAGON FOR INJ 1 MG VIAL SQ PRN (22:15)
[2020-07-17] MEDS ORDERED: GLUCOSE 10 TABS/TUBE PO PRN (22:15)
[2020-07-17] MEDS ORDERED: DEXTROSE 50% 50 ML SYRINGE IV PRN (22:15)
[2020-07-17] MEDS ORDERED: GLUCOSE 40% GEL 15 GM TUBE PO PRN (22:15)
[2020-07-18] MEDS: PRAMIPEXOLE DIHYDROCHLO 0.5 MG TAB PO SCH ×2 (00:32→20:41)
[2020-07-18] MEDS: HYDROCORTISONE SOD 50 MG in SYRINGE 0 ML IV SCH ×5 (00:33→23:39)
[2020-07-18] MEDS: PANTOprazole 40 MG in DEXTROSE 5% 100 ML IV SCH ×2 (00:58→06:32)
[2020-07-18] MEDS ORDERED: INSULIN ASPART 100 UNITS/ML 3 ML PEN SC SCH (02:00)
[2020-07-18] MEDS: LEVOTHYROXINE SODIUM 100 MCG TABLET PO SCH (04:50)
[2020-07-18] MEDS: CEFEPIME 2,000 MG in SYRINGE 0 ML IV SCH ×2 (04:50→16:44)
[2020-07-18] MEDS: NOREPINEPHRINE/D5W 8 MG/508 ML BAG IV SCH (04:52)
[2020-07-18 05:04] LABS: Hematocrit (blood only) 26.7 % (37-47); Mean Corpuscular Hemoglobin 30.8 pg (25-34); Mean Corpuscular Hgb Conc 33.7 g/dL (32-36); Mean Corpuscular Volume 91.4 fL (80-100); Nucleated RBC # (auto) 0.04 K/uL (0-0); Nucleated RBC % (auto) 0.3 %; RDW Coefficient of Variation 19.3 % (11.5-14.5); RDW Standard Deviation 64.1 fL (36.4-46.3); Red Blood Count 2.92 M/uL (4.2-5.4); White Blood Count 11.55 K/uL (4.8-10.8)
[2020-07-18 05:17] LABS: INR 1.1 (0.9-1.1); Prothrombin Time 11.8 Seconds (9.0-12.0)
[2020-07-18 05:31] LABS: Mean Platelet Volume 11.1 fL (7.4-10.4); Platelet Count 69 K/uL (130-400)
[2020-07-18 05:34] LABS: Basophils # (auto) 0.01 K/uL (0-0.2); Basophils % (auto) 0.1 %; Eosinophils # (auto) 0.01 K/uL (0-0.5); Eosinophils % (auto) 0.1 %; Immature Granulocytes # (auto) 0.32 K/uL (0.00-0.02); Immature Granulocytes % (auto) 2.8 %; Lymphocytes # (auto) 0.52 K/uL (1.2-3.4); Lymphocytes % (auto) 4.5 %; Monocytes # (auto) 0.93 K/uL (0.11-0.59); Monocytes % (auto) 8.1 %; Neutrophils # (auto) 9.76 K/uL (1.4-6.5); Neutrophils % (auto) 84.4 %; Toxic Granulation 1+
[2020-07-18 05:37] LABS: Albumin Level 2.6 gm/dl (3.4-5.0); BUN Creatinine Ratio 12.1 (10-20); Bilirubin Direct 0.4 mg/dl (0-0.2); Calcium 9.2 mg/dl (8.5-10.1); Creatinine Clr Calc Pharmacy 79.4 ml/min; Est GFR (African American) 105.9; Est GFR (Non-African American) 91.4; Potassium 3.6 mmol/L (3.5-5.1)
[2020-07-18 05:39] LABS: Phosphorus 2.2 mg/dl (2.5-4.9); Total Protein 5.5 gm/dl (6.4-8.2)
[2020-07-18] MEDS ORDERED: POTASSIUM PHOS 3 MMOL/1 ML INFUSION IV STA (06:56)
[2020-07-18] MEDS ORDERED: POTASSIUM PHOSPHATE 15 MMOL in SODIUM CHLORIDE 0.9% 250 ML IV ONE (07:00)
[2020-07-18] MEDS: PARoxetine HCL 20 MG TAB PO SCH (07:51)
[2020-07-18] MEDS: FLUDROCORTISONE ACETATE 0.1 MG TAB PO SCH (07:51)
[2020-07-18] MEDS: INSULIN ASPART 100 UNITS/ML 3 ML PEN SC SCH ×4 (07:52→20:40)
[2020-07-18] MEDS: FLUTICASONE/VILANTEROL 100/25MCG 14 PUFFS/INHALER INH SCH (07:52)
--- NOTE | 2020-07-18 07:54 | Critical Care Progress Note ---
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 Staging was not yet completed as this was neoadjuvant therapy in hopes of proceeding with mastectomy and surgical excision in the future. Patient was admitted with weakness and syncope and found to be anemic and thrombocytopenic. She was not neutropenic but there was concern for potential sepsis. 24-hour events: The patient's IV fluids were stopped. Chest x-ray demonstrated increasing pleural effusions and vascular congestion. She has had her pressor requirement weaned but continues to intermittently require vasopressor agents. Cardiology consultation was obtained and did not feel that her degree of left ear would be contributing to her syncopal events. Regardless she was not felt to be a candidate for any procedures in light of her malignancy. Blood cultures are positive 1 out of 2 for gram-negative rods Recommendations: 1. Neuro - Pleasantly demented at baseline. No significant change from previous. Continue frequent reorientation. Avoid medications known to cause delirium. She was placed back on her pramipexole at night for restless leg with good clinical response. Holding her Neurontin for now 2. Cardiac - Hypotension likely multifactorial due to combinations of bacteremia, volume depl etion, and relative adrenal insufficiency. She is on replacement hydrocortisone and Florinef. Wean norepinephrine as tolerated. Appreciate cardiology input regarding her aortic stenosis and will try and maintain systolic blood pressures greater than 90. She does have atrial fibrillation which is rate controlled currently. Continue digoxin. Holding anticoagulation given the patient's issues with anemia on presentation and questionable bleeding. Can restart her aspirin at this point time. Stop IVF and gentle diuresis given CXR findings. 3. Respiratory - X-ray appears consistent with mild fluid overload. Gently diurese today. She is on multiple inhalers in the outpatient setting. Unclear if she carries a diagnosis of obstructive lung disease but she does not appear to be bronch ospastic currently. 4. GI - Advancing diet as tolerated. No evidence of GI bleed. Discontinue Protonix. 5. RENAL/LYTES - No current issues. Continue electrolyte replacement 6. - Cerna in place to monitor UOP and Renal perfusion while on pressors 7. ENDO - Glycemic control per protocol. She is on steroids and Florinef for relative adrenal insufficiency. Continue pending resolution of hypotension 8. HEME - Anemia and thrombocytopenia likely secondary to chemotherapy. Doubt GI bleed. Counts remain stable without evidence of bleeding. Continue to trend. Thrombocytopenia appears to be recovering. 9. ONC - DCIS with lymph node involvement. Staging is incomplete. She does have pulmonary nodules on the most recent CT scan which may represent metastatic disease. Plan was to complete 6 cycles of neoadjuvant chemotherapy and then repeat staging. PET scan is anticipated in the future. Follow up with Dr. Spencer. 10. ID - 1 out of 2 blood cultures positive for gram-negative rods with procalcitonin to gently increasing. She is day #3 of cefepime. Continue antibiotics pending culture results and data. It is unclear where these cultures were drawn from but the port does not appear overtly infected so even if the cultures were drawn through the port, would favor trying to treat through a port infection. If the patient remains persistently bacteremic or hypotensive, the port may need to be removed. We will draw a repeat cultures 1 through the port and one through a peripheral source today 11. INTEGUMENTARY - Patient has sores on the posterior aspect of both shoulders. These do not appear infected and have no erythema fluctuance or drainage. Continue skin care LINES/IV ACCESS - PIVs intact L chest port DVT PROPHYLAXIS - SCDs, DISPO: We will follow in ICU pending resolution of the patient's hypotensive which point time she can likely transfer the floor under the care of the hospitalist. Will sign off when she leaves the ICU. If we can get her pressors off, she can likely transfer out later this afternoon Admission and Anticipated Discharge Date Admission Date: July 16, 2020 Subjective Patient is without focal complaints this morning. She denies chest pain or palpitations. She is not had any fevers chills or night sweats. She is tolerating a diet. No rigors. She did have some issues with restless leg syndrome last night and her RLS medications were restarted which was effective in improving her sleep. Review of Systems Review of Systems: All systems reviewed & are unremarkable except as noted in HPI & below Physical Exam Constitutional: WD/WN, vitals as above Neck: trachea midline, no thyromegaly Respiratory: normal respiratory effort, lungs clear to auscultation Cardiovascular: Rate/Rhythm: + irregularly irregular Heart Sounds: normal S1, normal S2 and + murmur Gastrointestinal (Abdomen): normal bowel sounds, soft, nontender, no hepatosplenomegaly Musculoskeletal: Extremities: extremities normal to inspection Skin: no rashes, warm and dry Neurologic: Nonfocal exam Lymphatic: no cervical lymphadenopathy Results & Data Results & Data ([facility]) Vital Signs (Past 12 Hours) Vital Signs Temp Pulse Resp BP Pulse Ox 07/18/20 05:56 88 33 H 101/67 94 07/18/20 05:27 85 33 H 93/64 L 94 07/18/20 04:56 98 H 33 H 105/54 L 93 07/18/20 04:26 90 31 H 101/60 94 07/18/20 04:00 36.7 C 07/18/20 03:56 90 28 H 95/68 L 94 07/18/20 03:26 82 33 H 101/62 94 07/18/20 02:56 83 32 H 98/56 L 93 07/18/20 02:26 83 36 H 99/58 L 94 07/18/20 01:56 78 36 H 99/59 L 93 07/18/20 01:26 83 37 H 102/54 L 94 07/18/20 00:56 88 27 H 85/56 L 94 07/18/20 00:26 102 H 28 H 91/54 L 92 07/18/20 00:03 36.6 C 07/17/20 23:57 91 H 31 H 83/55 L 92 07/17/20 23:27 103 H 30 H 81/51 L 95 07/17/20 23:26 93 H 22 76/46 L 94 07/17/20 22:56 92 H 27 H 88/56 L 95 07/17/20 22:26 80 36 H 94/56 L 96 07/17/20 22:22 87 29 H 91/55 L 96 07/17/20 21:56 83 39 H 82/54 L 93 07/17/20 21:26 78 41 H 88/53 L 94 07/17/20 20:57 99 H 23 90/30 L 95 07/17/20 20:26 81 29 H 97/57 L 94 07/17/20 20:10 79 27 H 91/55 L 94 07/17/20 20:00 36.5 C 07/17/20 19:56 86 27 H 87/52 L 94 Laboratory Results 07/18/20 04:45 07/18/20 04:45 Procalcitonin increased to 0.68 from 0.56 Blood cultures from the emergency room 1 out of 2 gram-negative rods. Speciation and sensitivities pending Diagnostic Findings Chest x-ray performed last evening demonstrated small bilateral pleural effusions with increased pulmonary vascularity large gastric air bubble was identified. Effusions appeared progressed compared to film from 07/16/2020 Coding Level of Care Code 98407 Subseq Hosp Care Lvl 3 Diagnoses Hypotension I95.9 Anemia D64.9 Pulmonary nodule seen on imaging study R91.1 Atrial fibrillation I48.91 Aortic stenosis I35.0 Admitted to intensive care unit Z78.9
[2020-07-18] MEDS ORDERED: VANCOMYCIN TROUGH ONE (07:59)
[2020-07-18] MEDS: ASPIRIN 81 MG ECTAB PO SCH (08:45)
[2020-07-18] MEDS: FUROSEMIDE 20 MG TAB PO SCH (08:45)
--- NOTE | 2020-07-18 13:01 | Hospitalist Progress Note ---
Date of Service July 18, 2020 Assessment & Plan (1) Bacteremia: 1/2 blood cultures growing Gram(-) bacilli. Unclear source her urine from 07/16 has no indication of infection, and she is not neutropenic, so GI translocation would be less likely. - On cefepime - Repeats drawn on 07/18 (one from port to ensure no line infection) (2) Septic shock: Source bacteremia as above. Likely element of adrenal insufficiency as well as hypovolemia. - Continue Levophed per ICU - Coming down; possibly off by this afternoon. - Empiric antibiotics with cefepime. Vanc stopped for Gram(-) in blood. - Follow up blood cultures (one from port, one peripheral); repeat cultures being done today. Again pulling one from port and one peripheral. (3) Right breast cancer with T3 tumor, >5 cm in greatest dimension: ER positive HER2/jose negative. Currently undergoing neoadjuvant chemotherapy under Dr Spencer. No stage from other notes. - Will follow [facility] on [facility] with [facility]. (4) Atrial fibrillation with rapid ventricular response: Improved rate with IV fluids suggestive of dehydrated state in ER. - Holding apixaban - Per ICU (5) Normocytic anemia: Concerning drop in ER from Hgb 10.7 [07/05] to 8.1, now 6.8. Likely secondary to chemotherapy bone marrow suppression but difficult to rule out GI bleed from unreliable history from patient. - S/p 2 units PRBCs on 07/16 - Further transfusion per ICU (6) Thrombocytopenia: Suspect secondary to bone marrow suppression with chemotherapy. - Monitor with AM labs. (7) Hypoxia: Aim O2 sats > 94%. - Oxygen supplement as usual (8) Dementia: On no medications for such. At risk of delirium. Unclear baseline. - Frequent reorientation. (9) Aortic stenosis: Notable recent echocardiogram with moderate-severe aortic stenosis. Follows with cardiology (Dr Koenig). - Cardiology consulted - Aim to keep SBP slightly higher to avoid low perfusion. - Monitor (10) DVT prophylaxis: Holding apixaban for low platelets. - SCDs Admission and Anticipated Discharge Date Admission Date: July 16, 2020 Subjective No focal complaints today. She is very worried about her brother and asks if she can be discharged from the hospital. Physical Exam Constitutional: WD/WN, vitals as above Eyes: EOM intact bilaterally; no conjunctival abnormality ENMT: external ear and nose normal, oropharynx normal Neck: trachea midline, no thyromegaly normal visual inspection Respiratory: + labored breathing and + tachypneic Auscultation: + crackles; no wheezes Cardiovascular: RRR, no murmur, no edema Gastrointestinal (Abdomen): Inspection/Auscultation: abdomen normal to inspection; abdomen not distended Musculoskeletal: no cyanosis or clubbing, extremities motor strength 5/5 Skin: no rashes, warm and dry Neurologic: moves all extremities and awake Psychiatric: Orientation: alert, oriented to person and cooperative Results & Data Results & Data ([facility]) Vital Signs (Past 12 Hours) Vital Signs Temp Pulse Resp BP Pulse Ox 07/18/20 12:30 75 32 H 98 07/18/20 12:26 83 26 H 92/52 L 98 07/18/20 12:15 79 32 H 97 07/18/20 12:00 85 41 H 98 07/18/20 11:57 98 H 33 H 83/62 L 99 07/18/20 11:45 87 29 H 99 07/18/20 11:30 84 33 H 96 07/18/20 11:26 79 30 H 88/60 L 90 07/18/20 11:15 80 33 H 92 07/18/20 11:00 88 33 H 91 07/18/20 10:56 96 H 40 H 118/71 92 07/18/20 10:45 81 27 H 94 07/18/20 10:30 84 34 H 96 07/18/20 10:27 76 30 H 91/64 L 96 07/18/20 10:15 80 28 H 95 07/18/20 10:01 129 H 07/18/20 09:58 107/49 L 07/18/20 09:45 101 H 28 H 88 L 07/18/20 09:30 79 28 H 98 07/18/20 09:26 90 33 H 104/63 97 07/18/20 09:15 76 27 H 99 07/18/20 09:00 81 25 H 97 07/18/20 08:56 103 H 31 H 96/50 L 96 07/18/20 08:45 93 H 48 H 93 07/18/20 08:30 100 H 35 H 93 07/18/20 08:27 99 H 46 H 91/55 L 92 07/18/20 08:00 97 H 26 H 11/29/20 07:57 101 H 29 H 107/53 L 93 07/18/20 07:30 96 H 26 H 89 L 07/18/20 07:26 87 31 H 98/57 L 89 L 07/18/20 07:00 89 38 H 96 07/18/20 06:56 94 H 29 H 105/57 L 95 07/18/20 06:45 87 29 H 94 07/18/20 05:56 88 33 H 101/67 94 07/18/20 05:27 85 33 H 93/64 L 94 07/18/20 04:56 98 H 33 H 105/54 L 93 07/18/20 04:26 90 31 H 101/60 94 07/18/20 04:00 36.7 C 07/18/20 03:56 90 28 H 95/68 L 94 07/18/20 03:26 82 33 H 101/62 94 07/18/20 02:56 83 32 H 98/56 L 93 07/18/20 02:26 83 36 H 99/58 L 94 07/18/20 01:56 78 36 H 99/59 L 93 07/18/20 01:26 83 37 H 102/54 L 94 07/18/20 00:56 88 27 H 85/56 L 94 PG Care Time/CCT Total # of Minutes Spent Total Time Spent with Patient: Total time spent is greater than 50% in coordination of care (as documented) at patient's floor/unit and/or counseling patient: Coding Level of Care Code 02621 Subseq Hosp Care Lvl 3 Diagnoses Bacteremia R78.81 Septic shock A41.9; R65.21 Right breast cancer with T3 tumor, >5 cm in greatest dimension C50.911 Atrial fibrillation with rapid ventricular response I48.91 Normocytic anemia D64.9 Thrombocytopenia D69.6 Hypoxia R09.02 Dementia F03.90 Aortic stenosis I35.0 DVT prophylaxis Z29.9
--- NOTE | 2020-07-18 13:58 | Pharmacy Report ---
Pharmacy Glycemic Short Note 2 - Date of Service July 18, 2020 - Glycemic Short BSG Results (Last 24 hours): 07/17/20 07/18/20 07/18/20 21:47 02:19 04:45 Glucose 118 H POC Glucose 173 H 129 H 07/18/20 07/18/20 07:33 11:28 Glucose POC Glucose 148 H 124 H OUTPATIENT ANTIDIABETIC REGIMEN: * N/A ASSESSMENT: * 69 year old female admitted with septic shock/bacteremia. PMHx significant for breast cancer, afib, anemia, dementia, aortic stenosis. With hypotension on admission, currently on norepinephrine drip * Pharmacy consulted to assist with glycemic control. No hx of diabetes noted on past medical history report. A1c pending * Received total of 15 units of insulin yesterday and BSGs today have been stable, continue with basal at HS to help with coverage of hydrocortisone PLAN FOR INPATIENT GLYCEMIC CONTROL: * Basal insulin * Lantus 10-15 units HS * Bolus insulin * NovoLog per scale ACHS or Q6hrs while NPO * Goal Range: Low 110 mg/dL - High 180 mg/dL * Correction Factor: 30 mg/dL/unit * Nutritional / Prandial insulin per carb ratio of 1 unit per 10 grams CHO consumed
[2020-07-18] MEDS: DIGOXIN 0.25 MG TAB PO SCH (16:44)
--- NOTE | 2020-07-18 17:03 | Cardiology Progress Note ---
Date of Service July 18, 2020 Assessment & Plan (1) Aortic stenosis: Moderate to severe on echocardiogram but noncritical based on exam and history. Poor candidate for transcatheter aortic valve replacement (TAVR) given her likely limited prognosis due to suspected metastatic cancer, as well as her general frailty, along with the lack of clear aortic stenosis related symptoms at recent baseline. (2) Hypotension: Gradually improving with downward titration of norepinephrine underway. (3) Atrial fibrillation: Rate well controlled with digoxin alone. Not currently an anticoagulation candidate due to marked anemia and thrombocytopenia. (4) At risk for fluid volume overload: She had received significant fluid resuscitation several days ago, currently she does appear mildly hypervolemic on exam and yesterday's chest x- ray suggested mild pulmonary edema. Agree with PRN diuretic to keep I/O even to slightly negative from this point on. Admission and Anticipated Discharge Date Admission Date: July 16, 2020 Subjective No new complaints. Uneventful night. Remains on low-dose norepinephrine, but this has been titrated downward. Physical Exam Physical Exam: Chronically ill-appearing white female in no acute distress. Afebrile. Systolic blood pressure 14158 mmHg systolic range. Pulse 70-100 bpm and irregular. Skin: no ecchymoses or generalized lesions. HEENT: unremarkable. Neck: Jugular venous pulse elevated snf to the angle of the jaw with increased respiratory variation, transmitted murmur to carotids. Lungs: Moderately decreased breath sounds but generally clear. Cardiac: Irregular rhythm with 4/6 crescendo decrescendo systolic ejection murmur right upper sternal border rating to the carotids and left sternal border, no diastolic murmur. Diminished but audible aortic closure sound. Chest: Access port left subclavian region. Abdomen benign. Extremities: no edema, brisk radial and dorsalis pedis pulses. Extremities warm. Neurologic: normal affect, grossly nonfocal. Results & Data ([facility]) Laboratory Results Hemoglobin 9.0 , white count 11.55, platelet count 69,000. INR 1.1 Normal electrolytes, BUN 7, creatinine 0.62. Diagnostic Findings Monitor shows atrial fibrillation with controlled ventricular response. Chest x-ray yesterday showed pulmonary edema with small pleural effusions and mild bibasilar opacities. PG Care Time/CCT Total # of Minutes Spent Total Time Spent with Patient: Total time spent is greater than 50% in coordination of care (as documented) at patient's floor/unit and/or counseling patient: Coding Level of Care Code 43735 Subseq Hosp Care Lvl 2 Diagnoses Aortic stenosis I35.0 Hypotension I95.9 Atrial fibrillation I48.91 At risk for fluid volume overload Z91.89
[2020-07-18] MEDS: INSULIN GLARGINE SOLOSTAR 100 UNITS/ML 3 ML PEN SC SCH (20:39)
[2020-07-18] MEDS: ATORVASTATIN 40 MG TAB PO SCH (20:41)
[2020-07-19] MEDS: CEFEPIME 2,000 MG in SYRINGE 0 ML IV SCH ×3 (03:45→22:11)
[2020-07-19 04:51] LABS: INR 1.2 (0.9-1.1); Prothrombin Time 12.1 Seconds (9.0-12.0)
[2020-07-19 05:01] LABS: Albumin Level 2.3 gm/dl (3.4-5.0); BUN Creatinine Ratio 17.1 (10-20); Bilirubin Direct 0.3 mg/dl (0-0.2); Calcium 8.7 mg/dl (8.5-10.1); Creatinine Clr Calc Pharmacy 76.9 ml/min; Est GFR (African American) 104.8; Est GFR (Non-African American) 90.4; Potassium 3.9 mmol/L (3.5-5.1)
[2020-07-19 05:04] LABS: Bilirubin,Total 0.9 mg/dl (0.2-1); Phosphorus 2.5 mg/dl (2.5-4.9)
[2020-07-19 05:19] LABS: Hematocrit (blood only) 27.4 % (37-47); Hemoglobin 9.2 g/dL (12.0-16.0); Mean Corpuscular Hemoglobin 31.3 pg (25-34); Mean Corpuscular Hgb Conc 33.6 g/dL (32-36); Mean Corpuscular Volume 93.2 fL (80-100); Mean Platelet Volume 11.7 fL (7.4-10.4); Platelet Count 121 K/uL (130-400); RDW Coefficient of Variation 19.6 % (11.5-14.5); RDW Standard Deviation 66.3 fL (36.4-46.3); Red Blood Count 2.94 M/uL (4.2-5.4); White Blood Count 14.55 K/uL (4.8-10.8)
[2020-07-19 05:29] LABS: Basophils # (auto) 0.02 K/uL (0-0.2); Basophils % (auto) 0.1 %; Dohle Bodies Occasional; Immature Granulocytes # (auto) 0.37 K/uL (0.00-0.02); Immature Granulocytes % (auto) 2.5 %; Lymphocytes # (auto) 0.85 K/uL (1.2-3.4); Lymphocytes % (auto) 5.8 %; Monocytes # (auto) 0.98 K/uL (0.11-0.59); Monocytes % (auto) 6.7 %; Neutrophils # (auto) 12.33 K/uL (1.4-6.5); Neutrophils % (auto) 84.9 %; Ovalocytes 1+; Polychromasia 1+; Toxic Granulation 1+
[2020-07-19] MEDS: HYDROCORTISONE SOD 50 MG in SYRINGE 0 ML IV SCH ×4 (05:43→23:37)
[2020-07-19] MEDS: LEVOTHYROXINE SODIUM 100 MCG TABLET PO SCH (05:43)
[2020-07-19 06:03] LABS: Estimated Average Glucose 137 mg/dl; Hemoglobin A1C 6.4 % (4.5-5.6)
--- NOTE | 2020-07-19 07:03 | XRay Report ---
XR chest 1V portable HISTORY: 69 years-old Female f/u acute shortness of breath COMPARISON: Chest radiograph 07/17/2020, CTA chest 07/16/2020 TECHNIQUE: Portable AP view of the chest FINDINGS: Cardiomegaly. Left subclavian [id number]-y-Ljsy catheter with duplicated SVC is in unchanged positioning. No pneumothorax. Small pleural effusions with persistent bibasilar opacities. Pulmonary vascular con gestion with mildly progressed interstitial coarsening. Degenerative changes of the spine and left sh oulder. Reverse right shoulder total joint arthroplasty. Healed remote left-sided rib fractures. Left upper lobe pulmonary nodules are better seen on comparison CTA of the chest. IMPRESSION: 1. Cardiomegaly with mildly progressed pulmonary edema. 2. Small pleural effusions with persistent bibasilar opacities suggestive of atelectasis versus pneum onitis. ACT 112: Negative or not required by law. The above report was generated using voice recognition software. It may contain grammatical, syntax o r spelling errors. Electronically signed by: Ilan Rolon M.D. 07/19/2020 7:02 AM
[2020-07-19] MEDS: INSULIN ASPART 100 UNITS/ML 3 ML PEN SC SCH ×4 (07:30→20:16)
[2020-07-19] MEDS: FLUTICASONE/VILANTEROL 100/25MCG 14 PUFFS/INHALER INH SCH (07:58)
[2020-07-19] MEDS: FLUDROCORTISONE ACETATE 0.1 MG TAB PO SCH (07:59)
[2020-07-19] MEDS: PARoxetine HCL 20 MG TAB PO SCH (07:59)
[2020-07-19] MEDS: ASPIRIN 81 MG ECTAB PO SCH (07:59)
[2020-07-19] MEDS: FUROSEMIDE 20 MG TAB PO SCH (07:59)
[2020-07-19] MEDS ORDERED: ACETAMINOPHEN 500 MG TAB PO PRN (08:39)
--- NOTE | 2020-07-19 08:40 | Critical Care Progress Note ---
Date of Service July 19, 2020 Assessment & Plan (1) Admitted to intensive care unit: 69 yo F admitted to ICU for hypotension requiring pressor support, anemia s/p 2u PRBC transfusion. Neuro - [facility] ICU: Sedation: none Analgesia: tylenol Dementia - baseline Dementia. Pt able to carry conversation and discuss symptoms. Cardiac - Hypotension - hypovolemic + relative adrenal insufficiency - extremely pre-load dependent due to - somewhat improved with 3L NS bolus in Ed and 2u pRBC - weaning levophed today, goal MAP of >65. SBP 90 Aortic Stenosis - Echo 07/02 showing moderate to severe Aortic stenosis, with gradient of 58, valve area >1cm - previous echo in 2019 showing valve area 1.4 cm; likely evolving disease - cardiology recommendations; pt not surgical candidate at this time especially with possible metastatic disease, but still having worsening symptomology Hx TIA - continue statin - continue ASA Afib - rate controlled - continue Digoxin, level 1.5 on admission - holding beta blockers, hypertension medications - if Hg stable tomorrow, can restart apixaban for Afib + chronic pulm embolus Respiratory - Hypoxia - o2 sat dropped to mid 80s in Er, started on 2 L NC - on Breo Ellipta and Ventolin inhaler per med list, no hx in chart of COPD/Asthma/smoking, no PFTs. Pt says she has asthma - no SOB complaints Hx chronic Pulm embolus - noted on CTA Chest, thin linear filling defect in segmental branch GI - Full Liquid Diet Possible GIB - Hasn't had bowel movement for FOBT testing - started on docusate/senna - normocytic anemia, improving to 9.2 from 6.8 on admission s/p 2u pRBC - pepcid bid for gi ppx RENAL/LYTES - Hypocalcemia: resolved - multiple doses of Ca gluconate IV given for repletion making urine appropriately.+5L for admission. maintenance fluids stopped, encourage PO fluid intake - started on lasix 20 mg PO AM to help gently diurese pulmonary edema Replace lytes as needed. - Cerna in place to monitor UOP and Renal perfusion while on pressors ENDO - A1c 6.4, BSG checks per unit protocol, SSI while on steroids Relative Adrenal insufficiency - AM cortisol low at 18, started on hydrocortisone 50 mg IV Q6 + fluorinef 0.1mg AM HEME - Normocytic Anemia - secondary to chemotherapeutic regimen vs. GIB - Hg increased from 6.8 to 9.5 after 2u pRBC - FOBT pending - no complaints of melanotic stools, vomiting - no bloody UOP Thrombocytopenia - likely secondary to cyclophosphamide - last chemo appointment 07/05, within window - improving to 152 this AM ONC - DCIS Breast cancer, metastatic? - diagnosed in march 2020 - follows with [facility]/Dr Spencer - ER, CA+, [id number] - - regimen: Docetaxel, adriamycin, cyclophosphamide Q21 days x 6 treatments. last tx 07/05 - new pulmonary nodules on CTA Chest may be metastatic spread, need repeat imaging and follow up. Chemotherapy regimen does not appear to be controlling spread of disease at this time. ID - Gram negative Bacteremia - Day 3 of Cefepime - no neutropenia, no fever, lactate WNL, on admission - procal borderline at 0.56, up to 0.68 over the weekend - no source of infection on CT A/P, CTA Chest, no apparent cellulitis, no abdominal tenderness - blood cultures growing pansensitive pseudomonas in 1/4 bottles - repeat cultures from 07/18 pending INTEGUMENTARY - L elbow sore on admission, covered with wound padding Shoulder sores, closed, nonweeping LINES/IV ACCESS - PIVs intact L chest port DVT PROPHYLAXIS - SCDs, holding chemical prophylaxis in setting of questionable GIB Thank you for allowing us to be part of this patient's care. Please refer to Dr. Lagunas's documentation for any further recommendations. (2) Atrial fibrillation: (3) Aortic stenosis: (4) Dementia: (5) DVT prophylaxis: (6) Thrombocytopenia: (7) Hypoxia: (8) Pulmonary nodule seen on imaging study: Admission and Anticipated Discharge Date Admission Date: July 16, 2020 Supervising Physician Co-Signing Physician Notes Dr. Roque was the resident-physician during care of patient. I separately evaluated patient for guillermo portions of the history and the exam. I was present during the critical portion of medical decision making, and I discussed the case with the resident. I generally agree with the findings and plan except for any additions/exceptions noted. Patient septic shock appears to be resolving. She is off of Levophed and maintaining mean arterial pressures above 65 mmHg on her own. She can likely start to wean on hydrocortisone starting tomorrow. Pseudomonas is growing from her blood cultures on admission. Follow-up blood cultures have been negative to date. Continue IV cefepime. Infectious disease consultation may be beneficial. No overt signs of urinary tract infection. She does have a port. Since infection appears to be clearing, I do not think the port needs to be removed. Echocardiogram with mild aortic regurgitation and moderate to severe valvular aortic stenosis. The study was technically difficult. She is likely preload dependent related to her aortic stenosis. She appears fairly euvolemic at present. She does appear to have mild bilateral lower extremity edema which is likely chronic. Chest CTA on admission demonstrated possible left lower lobe chronic thrombus. She was on anticoagulation prior to the hospitalization with Eliquis for atrial fibrillation. Would recommend restarting anticoagulation tomorrow if no further evidence of worsening anemia or thrombocytopenia. Continue digoxin for rate control. She also has 2 additional pleural-based lung nodules which may be utility sales representative of metastatic lung cancer. She does have ongoing dementia and at times delirium. MRI of the brain may be warranted to rule out metastatic disease in her brain. This does not need to be done while in the ICU. I think she is safe to transfer out to the floor with telemetry today. Palliative care consultation may be warranted in the near future either as an inpatient or outpatient. I have personally spent [] minutes of critical care time in the direct management of this patient. This is a life/limb threatening event. This includes time spent evaluating patient, direct bedside care, chart review, placing orders, interpretation of diagnostic studies, discussion with consultants, patient, and/or family members regarding treatment decisions, as well as other required patient management activities. This time is exclusive of all separately billable procedures, and teaching time and separate from and in addition to any other critical care service time. Subjective Continues to be pleasantly demented. Frustrated at being in the hospital for "3 weeks". no pain or discomfort. no chest pain. Review of Systems Constitutional: + fatigue Respiratory: no cough Cardiovascular: no chest pain Gastrointestinal: no abdominal pain, no nausea and no vomiting Physical Exam Physical Exam: VITAL SIGNS - Vital signs and nursing notes were reviewed. GENERAL - thin 69-year-old F laying comfortably in bed in NAD SKIN - Without rashes. sores on posterior shoulders without purulence or drainage. No tenderness or erythema surrounding L port. HEAD - NC/AT. EYES - PERRL. Sclera anicteric. EARS - No deformities of external structures noted on gross examination bilatera lly. NOSE - Midline and without cyanosis. No epistaxis or purulent drainage noted. MOUTH/OROPHARYNX - Without perioral cyanosis. LUNGS - bibasilar crackles, poor inspiratory effort CARDIAC - Afib, regular rate. Holosystolic crescendo-decrescendo murmur audible in all heart zones, no rubs or gallops appreciated. ABDOMEN -soft nontender nondistended with normal bowel sounds. EXTREMITIES - mild 1+ nonpitting edema of left meier NEUROLOGIC - Demented, oriented to person and place, takes considerable time to remember year. Results & Data Results & Data ([facility]) Vital Signs (Past 12 Hours) Vital Signs Temp Pulse Resp BP Pulse Ox 07/19/20 06:27 86 26 H 103/78 97 07/19/20 05:39 92 H 29 H 115/73 95 07/19/20 04:27 94 H 29 H 99/73 L 93 07/19/20 03:27 97 H 29 H 108/65 97 07/19/20 02:27 79 27 H 103/62 95 07/19/20 01:27 93 H 26 H 98/61 L 95 07/19/20 00:27 36.7 C 86 29 H 106/59 L 95 07/18/20 23:27 89 29 H 116/61 95 07/18/20 22:27 83 27 H 98/50 L 93 07/18/20 21:27 76 25 H 97/64 L 96 07/18/20 20:28 36.7 C 77 28 H 108/59 L 93 Laboratory Results WBC 14.55 K/uL (4.8-10.8) H 07/19/20 04:22 RBC 2.94 M/uL (4.2-5.4) L 07/19/20 04:22 Hgb 9.2 g/dL (12.0-16.0) L 07/19/20 04:22 Hct 27.4 % (37-47) L 07/19/20 04:22 MCV 93.2 fL (80-100) 07/19/20 04:22 MCH 31.3 pg (25-34) 07/19/20 04:22 MCHC 33.6 g/dL (32-36) 07/19/20 04:22 RDW Std Deviation 66.3 fL (36.4-46.3) H 07/19/20 04:22 RDW Coeff of Demetra 19.6 % (11.5-14.5) H 07/19/20 04:22 Plt Count 121 K/uL (130-400) L D 07/19/20 04:22 MPV 11.7 fL (7.4-10.4) H 07/19/20 04:22 Immature Gran % (Auto) 2.5 % 07/19/20 04:22 Neut % (Auto) 84.9 % 07/19/20 04:22 Lymph % (Auto) 5.8 % 07/19/20 04:22 [place] % (Auto) 6.7 % 07/19/20 04:22 Eos % (Auto) 0.0 % 07/19/20 04:22 Baso % (Auto) 0.1 % 07/19/20 04:22 Reticulocyte % (Auto) 1.0 % (0.5-2.0) 07/17/20 04:01 Neut # (Auto) 12.33 K/uL (1.4-6.5) H 07/19/20 04:22 Lymph # (Auto) 0.85 K/uL (1.2-3.4) L 07/19/20 04:22 [place] # (Auto) 0.98 K/uL (0.11-0.59) H 07/19/20 04:22 Eos # (Auto) 0.00 K/uL (0-0.5) 07/19/20 04:22 Baso # (Auto) 0.02 K/uL (0-0.2) 07/19/20 04:22 Reticulocyte # 0.03 10^6/uL (0.02-0.10) 07/17/20 04:01 Immature Gran # (Auto) 0.37 K/uL (0.00-0.02) H 07/19/20 04:22 Absolute Nucleated RBC 0.04 K/uL (0-0) H 07/18/20 04:45 Nucleated RBC % (auto) 0.3 % 07/18/20 04:45 Neutrophils % (Manual) 87.9 % 07/17/20 04:01 Lymphocytes % (Manual) 3.4 % 07/17/20 04:01 Monocytes % (Manual) 7.8 % 07/17/20 04:01 Metamyelocytes % (Man) 0.9 % 07/17/20 04:01 Neutrophils # (Manual) 7.39 K/uL (1.4-6.5) H 07/17/20 04:01 Total Absolute Neuts 7.39 K/uL (1.4-6.5) H 07/17/20 04:01 Lymphocytes # (Manual) 0.29 K/uL (1.2-3.4) L 07/17/20 04:01 Total Abs Lymphocytes 0.29 K/uL (1.2-3.4) L 07/17/20 04:01 Monocytes # (Manual) 0.66 K/uL (0.11-0.59) H 07/17/20 04:01 Metamyelocytes # (Man) 0.08 K/uL (0-0) H 07/17/20 04:01 Toxic Granulation 1+ 07/19/20 04:22 Dohle Bodies Occasional 07/19/20 04:22 Platelet Estimate Decreased (Normal) L 07/17/20 04:01 Polychromasia 1+ 07/19/20 04:22 Ovalocytes 1+ 07/19/20 04:22 PT 12.1 Seconds (9.0-12.0) H 07/19/20 04:22 INR 1.2 (0.9-1.1) H 07/19/20 04:22 APTT 43.4 Seconds (21.0-31.0) H 07/16/20 15:35 PTT Ratio 1.6 07/16/20 15:35 Sodium 140 mmol/L (136-145) 07/19/20 04:22 Potassium 3.9 mmol/L (3.5-5.1) 07/19/20 04:22 Chloride 110 mmol/L (98-107) H 07/19/20 04:22 Carbon Dioxide 27 mmol/L (21-32) 07/19/20 04:22 Anion Gap 3.0 (3-11) 07/19/20 04:22 BUN 11 mg/dl (7-18) D 07/19/20 04:22 Creatinine 0.64 mg/dl (0.6-1.2) 07/19/20 04:22 Est Cr Clr Drug Dosing 76.9 ml/min 07/19/20 04:22 Est GFR ( Amer) 104.8 07/19/20 04:22 Est GFR (Non-Af Amer) 90.4 07/19/20 04:22 BUN/Creatinine Ratio 17.1 (10-20) 07/19/20 04:22 Glucose 128 mg/dl (70-99) H 07/19/20 04:22 POC Glucose 141 mg/dl (70-99) H 07/19/20 07:22 Estimat Average Glucose 137 mg/dl 07/18/20 04:45 Hemoglobin A1c 6.4 % (4.5-5.6) H 07/18/20 04:45 Lactate 1.2 mmol/L (0.4-2.0) 07/16/20 15:35 Calcium 8.7 mg/dl (8.5-10.1) 07/19/20 04:22 Phosphorus 2.5 mg/dl (2.5-4.9) 07/19/20 04:22 Magnesium 2.0 mg/dl (1.8-2.4) 07/19/20 04:22 Total Bilirubin 0.9 mg/dl (0.2-1) 07/19/20 04:22 Direct Bilirubin 0.3 mg/dl (0-0.2) H 07/19/20 04:22 AST 16 U/L (15-37) 07/19/20 04:22 ALT 17 U/L (12-78) 07/19/20 04:22 Alkaline Phosphatase 90 U/L (45-117) 07/19/20 04:22 Total Creatine Kinase 84 U/L (26-192) 07/17/20 04:01 Troponin I 0.039 ng/ml (0-0.045) 07/16/20 15:35 Total Protein 5.0 gm/dl (6.4-8.2) L 07/19/20 04:22 Albumin 2.3 gm/dl (3.4-5.0) L 07/19/20 04:22 Globulin 3.4 gm/dl (2.5-4.0) 07/16/20 15:35 Albumin/Globulin Ratio 0.6 (0.9-2) L 07/16/20 15:35 Procalcitonin 0.68 ng/ml (0-0.5) H 07/18/20 04:45 TSH 1.560 uIu/ml (0.300-4.500) 07/16/20 15:35 Random Cortisol 18.66 mcg/dl 07/17/20 04:01 Urine Color [place] 07/16/20 16:03 Urine Appearance Clear (Clear) 07/16/20 16:03 Urine pH 6.0 (4.5-7.5) 07/16/20 16:03 Ur Specific [place] 1.023 (1.000-1.030) 07/16/20 16:03 Urine Protein 1+ (Negative) H 07/16/20 16:03 Urine Glucose (UA) Negative (Negative) 07/16/20 16:03 Urine Ketones Negative (Negative) 07/16/20 16:03 Urine Blood Negative (Negative) 07/16/20 16:03 Urine Nitrite Negative (Negative) 07/16/20 16:03 Urine Bilirubin Negative (Negative) 07/16/20 16:03 Urine Urobilinogen Negative (Negative) 07/16/20 16:03 Ur Leukocyte Esterase Trace (Negative) H 07/16/20 16:03 Urine WBC (Auto) 0 /hpf (0-5) 07/16/20 16:03 Urine RBC (Auto) 0-4 /hpf (0-4) 07/16/20 16:03 U Hyaline Cast (Auto) 1-5 /lpf (0-5) 07/16/20 16:03 U Epithel Cells (Auto) 0-5 /lpf (0-5) 07/16/20 16:03 Urine Bacteria (Auto) Negative (Negative) 07/16/20 16:03 Nasal Screen MRSA (PCR) Negative (Negative) 07/17/20 00:15 Digoxin 1.5 ng/ml (0.8-2.0) 07/17/20 04:01 Adenovirus (PCR) Not Detected (NotDetected) 07/16/20 20:55 B. pertussis DNA (PCR) Not Detected (NotDetected) 07/16/20 20:55 B.parapertussis DNA PCR Not Detected (NotDetected) 07/16/20 20:55 C. pneumoniae DNA (PCR) Not Detected (NotDetected) 07/16/20 20:55 Coronavirus OC43 (PCR) Not Detected (NotDetected) 07/16/20 20:55 Coronavirus HKU1 (PCR) Not Detected (NotDetected) 07/16/20 20:55 Coronavirus 229E (PCR) Not Detected (NotDetected) 07/16/20 20:55 COVID-19 Eval Order Covid19 IDNow [facility] 07/16/20 15:38 COVID-19 PCR Not Detected (NotDetected) 07/16/20 20:55 Coronavirus NL63 (PCR) Not Detected (NotDetected) 07/16/20 20:55 Human Metapneumovir PCR Not Detected (NotDetected) 07/16/20 20:55 Influenza Type A (PCR) Not Detected (NotDetected) 07/16/20 20:55 Influenza Type B (PCR) Not Detected (NotDetected) 07/16/20 20:55 M. pneumoniae (PCR) Not Detected (NotDetected) 07/16/20 20:55 Parainfluenza 1 (PCR) Not Detected (NotDetected) 07/16/20 20:55 Parainfluenza 2 (PCR) Not Detected (NotDetected) 07/16/20 20:55 Parainfluenza 3 (PCR) Not Detected (NotDetected) 07/16/20 20:55 Parainfluenza 4 (PCR) Not Detected (NotDetected) 07/16/20 20:55 RSV (PCR) Not Detected (NotDetected) 07/16/20 20:55 Entero/Rhino (PCR) Not Detected (NotDetected) 07/16/20 20:55 SARS-CoV-2, RNA, NAAT NEGATIVE (NEGATIVE) 07/16/20 15:38 Blood Type A Negative 07/16/20 19:48 Blood Type Recheck A Negative 07/16/20 15:35 Antibody Screen NEGATIVE 07/16/20 19:48 Crossmatch See Detail 07/16/20 19:48 Resident Activity Tracking Resident Involvement: Resident Care Provided Care Provided: Adult Hospital Medicine
--- NOTE | 2020-07-19 08:57 | Cardiology Progress Note ---
Date of Service July 19, 2020 Assessment & Plan (1) Hypotension: Gradually improving with downward titration of norepinephrine underway. (2) Atrial fibrillation: Rate well controlled with digoxin alone. Not currently an anticoagulation candidate due to marked anemia and thrombocytopenia, however her platelet count is improving and she may be an anticoagulation candidate prior to discharge. (3) Aortic stenosis: Moderate to severe on echocardiogram but noncritical based on exam and history. Poor candidate for transcatheter aortic valve replacement (TAVR) given her likely limited prognosis due to suspected metastatic cancer, as well as her general frailty, along with the lack of clear aortic stenosis related symptoms at recent baseline. (4) At risk for fluid volume overload: Received vigorous fluid resuscitation earlier during her hospitalization but currently has no overt heart failure symptoms, appears only mildly hypervolemic on exam. Agree with PRN diuretic to keep I/O even to slightly negative from this point on. Admission and Anticipated Discharge Date Admission Date: July 16, 2020 Subjective No new complaints. Uneventful night. Remains on low-dose norepinephrine, but this continues to be titrated downward. Rhythm remains atrial fibrillation, rate 80-90 bpm range. BP low normal on norepinephrine. Physical Exam Physical Exam: Chronically ill-appearing white female in no acute distress. Afebrile. Systolic blood pressure 68003 mmHg systolic range. Pulse 70-100 bpm and irregular. Skin: no ecchymoses or generalized lesions. HEENT: unremarkable. Neck: Jugular venous pulse one third of the way to the angle of the jaw at 70 degrees with increased respiratory variation, transmitted murmur to carotids. Lungs: Moderately decreased breath sounds but generally clear. Cardiac: Irregular rhythm with 3/6 crescendo decrescendo systolic ejection murmur right upper sternal border rating to the carotids and left sternal border, no diastolic murmur. Diminished but audible aortic closure sound. Chest: Access port left subclavian region. Abdomen benign. Extremities: no edema, brisk radial and dorsalis pedis pulses. Extremities warm. Neurologic: Unsophisticated affect, grossly nonfocal. PG Care Time/CCT Total # of Minutes Spent Total Time Spent with Patient: Total time spent is greater than 50% in coordination of care (as documented) at patient's floor/unit and/or counseling patient: Coding Level of Care Code 02702 Subseq Hosp Care Lvl 3 Diagnoses Hypotension I95.9 Atrial fibrillation I48.91 Aortic stenosis I35.0 At risk for fluid volume overload Z91.89
--- NOTE | 2020-07-19 10:43 | Billing Data ---
Date of Service July 19, 2020 Coding Level of Care Code Critical Care 1st 30-74 mins Time Spent (min) 32
[2020-07-19] MEDS: DOCUSATE SODIUM/SENNA 50/8.6MG TAB PO SCH (11:33)
[2020-07-19] MEDS: FAMOTIDINE 20 MG TAB PO SCH ×2 (11:34→19:59)
--- NOTE | 2020-07-19 14:40 | Hospitalist Progress Note ---
Date of Service July 19, 2020 Assessment & Plan (1) Bacteremia: 1/4 bottles of blood cultures growing pansensitive Pseudomonas aeruginosa UNclear source as her urine from 07/16 has no indication of infection, and she is not neutropenic, so GI translocation would be less likely. She does have multiple wounds on posterior shoulders left elbow and right leg- posterior shoulder wounds do seem more open and moist with mild surrounding erythema-could be possible source? Port does not appear infected -Continue cefepime -Consult ID -Follow repeat cultures drawn on 07/18 (one from port to ensure no line infection) (2) Septic shock: Source bacteremia as above. Likely element of adrenal insufficiency as well as hypovolemia. -Now weaned off Levophed -Remains on IV hydrocortisone-we will start weaning down tomorrow -Remains on p.o. fludrocortisone which was started upon admission by computer engineering professor-we will also wean off of this -Continue antibiotics as above -Advance diet as tolerated now that is off vasopressors (3) Right breast cancer with T3 tumor, >5 cm in greatest dimension: ER positive HER2/jose negative. Currently undergoing neoadjuvant chemotherapy under Dr Spencer. No stage from other notes. - Will follow up as an outpatient with [facility]. (4) Atrial fibrillation with rapid ventricular response: Improved rate with IV fluids suggestive of dehydrated state in ER. - Holding apixaban from home but can restart tomorrow as previous thrombocytopenia and anemia are now improved -Continue to hold home bisoprolol while blood pressures are soft Continue home digoxin Continue to follow on telemetry Appreciate cardiology consultation (5) Normocytic anemia: Concerning drop in ER from Hgb 10.7 [07/05] to 8.1, then 6.8. Likely secondary to chemotherapy bone marrow suppression but difficult to rule out GI bleed from unreliable history from patient. - S/p 2 units PRBCs on 07/16, hemoglobin remained stable at 9.2 since then Hemoccult stool pending (6) Thrombocytopenia: Suspect secondary to bone marrow suppression with chemotherapy. Platelets now improved up to 121 - Monitor CBC with AM labs. (7) Hypoxia: Aim O2 sats > 94%. - Oxygen supplement as usual (8) Dementia: On no medications for such. At risk of delirium. Unclear baseline. - Frequent reorientation. -Supportive care (9) Aortic stenosis: Notable recent echocardiogram with moderate-severe aortic stenosis. Follows with cardiology (Dr Koenig). - Cardiology consulted - Aim to keep SBP slightly higher to avoid low perfusion. - Monitor Not likely a candidate for TAVR given her cancer (10) Pulmonary embolism on left: Chronic left-sided thin linear filling defect in a segmental branch seen on CTA chest on admission Restarting apixaban likely tomorrow Should continue anticoagulation indefinitely given her cancer (11) Restless legs syndrome: Continue Mirapex (12) Hypothyroidism: Continue home levothyroxine TSH here normal at 1.56 (13) DVT prophylaxis: Holding apixaban for low platelets and anemia but will restart tomorrow as long as they continue to improve. - SCDs Disposition-downgrade from ICU to PCU Admission and Anticipated Discharge Date Admission Date: July 16, 2020 Subjective Patient is confused and forgetful. Denies any pain anywhere. No shortness of breath. I discussed her care with the computer engineering professor. She was weaned off of Levophed today and blood pressures remain low-normal Telemetry with atrial fibrillation rates 80 to 90s Review of Systems Review of Systems: All systems reviewed & are unremarkable except as noted in HPI & below Physical Exam Constitutional: WD/WN, vitals as above Eyes: PERRL, conjunctivae normal, anicteric sclerae ENMT: external ear and nose normal, oropharynx normal Neck: trachea midline, no thyromegaly Respiratory: normal respiratory effort, lungs clear to auscultation Cardiovascular: Rate/Rhythm: regular rate and + irregularly irregular Heart Sounds: + murmur (3/6 AMOS at the RUSB) Chest (Breasts): Chest: normal inspection of chest Gastrointestinal (Abdomen): normal bowel sounds, soft, nontender, no hepatosplenomegaly Musculoskeletal: Extremities: extremities normal to inspection; no cyanosis and no clubbing Skin: + wound (Bilat posterior shoulders with 1-2 cm circular open wounds w/ mild erythema) Neurologic: moves all extremities and awake; no focal motor deficits Psychiatric: Orientation: alert, oriented to person and cooperative Lymphatic: no lymphedema Results & Data Results & Data ([facility]) Vital Signs (Past 12 Hours) Vital Signs Temp Pulse Resp BP Pulse Ox 07/19/20 08:30 111 H 25 H 95 07/19/20 08:27 92 H 32 H 117/78 94 07/19/20 08:15 104 H 30 H 97 07/19/20 08:00 105 H 20 94 07/19/20 07:57 101 H 24 97/77 L 91 07/19/20 07:45 36.4 C L 95 H 31 H 96 07/19/20 07:30 103 H 32 H 96 07/19/20 07:27 81 28 H 108/75 96 07/19/20 07:15 88 27 H 95 07/19/20 07:00 108 H 27 H 96 07/19/20 06:27 86 26 H 103/78 97 07/19/20 05:39 92 H 29 H 115/73 95 07/19/20 04:27 94 H 29 H 99/73 L 93 07/19/20 03:27 97 H 29 H 108/65 97 Laboratory Results 07/19/20 07/19/20 07/19/20 Range/Units 16:24 11:15 07:22 WBC (4.8-10.8) K/uL RBC (4.2-5.4) M/uL Hgb (12.0-16.0) g/dL Hct (37-47) % MCV (80-100) fL MCH (25-34) pg MCHC (32-36) g/dL RDW Std Deviation (36.4-46.3) fL RDW Coeff of Demetra (11.5-14.5) % Plt Count (130-400) K/uL MPV (7.4-10.4) fL Immature Gran % (Auto) % Neut % (Auto) % Lymph % (Auto) % [place] % (Auto) % Eos % (Auto) % Baso % (Auto) % Neut # (Auto) (1.4-6.5) K/uL Lymph # (Auto) (1.2-3.4) K/uL [place] # (Auto) (0.11-0.59) K/uL Eos # (Auto) (0-0.5) K/uL Baso # (Auto) (0-0.2) K/uL Immature Gran # (Auto) (0.00-0.02) K/uL Toxic Granulation Dohle Bodies Polychromasia Ovalocytes PT (9.0-12.0) Seconds INR (0.9-1.1) Sodium (136-145) mmol/L Potassium (3.5-5.1) mmol/L Chloride (98-107) mmol/L Carbon Dioxide (21-32) mmol/L Anion Gap (3-11) BUN (7-18) mg/dl Creatinine (0.6-1.2) mg/dl Est Cr Clr Drug Dosing ml/min Est GFR ( Amer) Est GFR (Non-Af Amer) BUN/Creatinine Ratio (10-20) Glucose (70-99) mg/dl POC Glucose 121 H 137 H 141 H (70-99) mg/dl Estimat Average Glucose mg/dl Hemoglobin A1c (4.5-5.6) % Calcium (8.5-10.1) mg/dl Phosphorus (2.5-4.9) mg/dl Magnesium (1.8-2.4) mg/dl Total Bilirubin (0.2-1) mg/dl Direct Bilirubin (0-0.2) mg/dl AST (15-37) U/L ALT (12-78) U/L Alkaline Phosphatase (45-117) U/L Total Protein (6.4-8.2) gm/dl Albumin (3.4-5.0) gm/dl Procalcitonin (0-0.5) ng/ml 07/19/20 07/19/20 07/19/20 Range/Units 04:22 04:22 04:22 WBC 14.55 H (4.8-10.8) K/uL RBC 2.94 L (4.2-5.4) M/uL Hgb 9.2 L (12.0-16.0) g/dL Hct 27.4 L (37-47) % MCV 93.2 (80-100) fL MCH 31.3 (25-34) pg MCHC 33.6 (32-36) g/dL RDW Std Deviation 66.3 H (36.4-46.3) fL RDW Coeff of Demerta 19.6 H (11.5-14.5) % Plt Count 121 L D (130-400) K/uL MPV 11.7 H (7.4-10.4) fL Immature Gran % (Auto) 2.5 % Neut % (Auto) 84.9 % Lymph % (Auto) 5.8 % [place] % (Auto) 6.7 % Eos % (Auto) 0.0 % Baso % (Auto) 0.1 % Neut # (Auto) 12.33 H (1.4-6.5) K/uL Lymph # (Auto) 0.85 L (1.2-3.4) K/uL [place] # (Auto) 0.98 H (0.11-0.59) K/uL Eos # (Auto) 0.00 (0-0.5) K/uL Baso # (Auto) 0.02 (0-0.2) K/uL Immature Gran # (Auto) 0.37 H (0.00-0.02) K/uL Toxic Granulation 1+ Dohle Bodies Occasional Polychromasia 1+ Ovalocytes 1+ PT 12.1 H (9.0-12.0) Seconds INR 1.2 H (0.9-1.1) Sodium 140 (136-145) mmol/L Potassium 3.9 (3.5-5.1) mmol/L Chloride 110 H (98-107) mmol/L Carbon Dioxide 27 (21-32) mmol/L Anion Gap 3.0 (3-11) BUN 11 D (7-18) mg/dl Creatinine 0.64 (0.6-1.2) mg/dl Est Cr Clr Drug Dosing 76.9 ml/min Est GFR ( Amer) 104.8 Est GFR (Non-Af Amer) 90.4 BUN/Creatinine Ratio 17.1 (10-20) Glucose 128 H (70-99) mg/dl POC Glucose (70-99) mg/dl Estimat Average Glucose mg/dl Hemoglobin A1c (4.5-5.6) % Calcium 8.7 (8.5-10.1) mg/dl Phosphorus 2.5 (2.5-4.9) mg/dl Magnesium 2.0 (1.8-2.4) mg/dl Total Bilirubin 0.9 (0.2-1) mg/dl Direct Bilirubin 0.3 H (0-0.2) mg/dl AST 16 (15-37) U/L ALT 17 (12-78) U/L Alkaline Phosphatase 90 (45-117) U/L Total Protein 5.0 L (6.4-8.2) gm/dl Albumin 2.3 L (3.4-5.0) gm/dl Procalcitonin (0-0.5) ng/ml 07/18/20 07/18/20 07/18/20 Range/Units 20:34 04:45 04:45 WBC (4.8-10.8) K/uL RBC (4.2-5.4) M/uL Hgb (12.0-16.0) g/dL Hct (37-47) % MCV (80-100) fL MCH (25-34) pg MCHC (32-36) g/dL RDW Std Deviation (36.4-46.3) fL RDW Coeff of Demetra (11.5-14.5) % Plt Count (130-400) K/uL MPV (7.4-10.4) fL Immature Gran % (Auto) % Neut % (Auto) % Lymph % (Auto) % [place] % (Auto) % Eos % (Auto) % Baso % (Auto) % Neut # (Auto) (1.4-6.5) K/uL Lymph # (Auto) (1.2-3.4) K/uL [place] # (Auto) (0.11-0.59) K/uL Eos # (Auto) (0-0.5) K/uL Baso # (Auto) (0-0.2) K/uL Immature Gran # (Auto) (0.00-0.02) K/uL Toxic Granulation Dohle Bodies Polychromasia Ovalocytes PT (9.0-12.0) Seconds INR (0.9-1.1) Sodium (136-145) mmol/L Potassium (3.5-5.1) mmol/L Chloride (98-107) mmol/L Carbon Dioxide (21-32) mmol/L Anion Gap (3-11) BUN (7-18) mg/dl Creatinine (0.6-1.2) mg/dl Est Cr Clr Drug Dosing ml/min Est GFR ( Amer) Est GFR (Non-Af Amer) BUN/Creatinine Ratio (10-20) Glucose (70-99) mg/dl POC Glucose 149 H (70-99) mg/dl Estimat Average Glucose 137 mg/dl Hemoglobin A1c 6.4 H (4.5-5.6) % Calcium (8.5-10.1) mg/dl Phosphorus (2.5-4.9) mg/dl Magnesium (1.8-2.4) mg/dl Total Bilirubin (0.2-1) mg/dl Direct Bilirubin (0-0.2) mg/dl AST (15-37) U/L ALT (12-78) U/L Alkaline Phosphatase (45-117) U/L Total Protein (6.4-8.2) gm/dl Albumin (3.4-5.0) gm/dl Procalcitonin 0.68 H (0-0.5) ng/ml Diagnostic Findings PG Care Time/CCT Total # of Minutes Spent Total Time Spent with Patient: Total time spent is greater than 50% in coordination of care (as documented) at patient's floor/unit and/or counseling patient: Coding Level of Care Code 40923 Subseq Hosp Care Lvl 3 Diagnoses Bacteremia R78.81 Septic shock A41.9; R65.21 Right breast cancer with T3 tumor, >5 cm in greatest dimension C50.911 Atrial fibrillation with rapid ventricular response I48.91 Normocytic anemia D64.9 Thrombocytopenia D69.6 Hypoxia R09.02 Dementia F03.90 Aortic stenosis I35.0 Pulmonary embolism on left I26.99 Restless legs syndrome G25.81 Hypothyroidism E03.9 DVT prophylaxis Z29.9
[2020-07-19] MEDS: DIGOXIN 0.25 MG TAB PO SCH (17:21)
[2020-07-19] MEDS: NOREPINEPHRINE/D5W 8 MG/508 ML BAG IV SCH (18:46)
[2020-07-19] MEDS: DULoxetine HCL 60 MG CAP PO SCH (19:59)
[2020-07-19] MEDS: PANTOprazole 40 MG TAB PO SCH (19:59)
[2020-07-19] MEDS: PRAMIPEXOLE DIHYDROCHLO 0.5 MG TAB PO SCH (19:59)
[2020-07-19] MEDS: GABAPENTIN 100 MG CAP PO SCH (19:59)
[2020-07-19] MEDS: ATORVASTATIN 40 MG TAB PO SCH (19:59)
[2020-07-19] MEDS: MONTELUKAST SODIUM 10 MG TABLET PO SCH (19:59)
[2020-07-19] MEDS: INSULIN GLARGINE SOLOSTAR 100 UNITS/ML 3 ML PEN SC SCH (20:16)
[2020-07-20] MEDS: LEVOTHYROXINE SODIUM 100 MCG TABLET PO SCH (05:05)
[2020-07-20] MEDS: HYDROCORTISONE SOD 50 MG in SYRINGE 0 ML IV SCH ×3 (05:05→20:42)
[2020-07-20 05:33] LABS: Basophils # (auto) 0.02 K/uL (0-0.2); Basophils % (auto) 0.1 %; Hematocrit (blood only) 27.2 % (37-47); Hemoglobin 8.9 g/dL (12.0-16.0); Immature Granulocytes % (auto) 4.2 %; Lymphocytes # (auto) 0.84 K/uL (1.2-3.4); Lymphocytes % (auto) 5.9 %; Mean Corpuscular Hgb Conc 32.7 g/dL (32-36); Mean Corpuscular Volume 94.8 fL (80-100); Mean Platelet Volume 11.3 fL (7.4-10.4); Monocytes # (auto) 0.82 K/uL (0.11-0.59); Monocytes % (auto) 5.7 %; Neutrophils # (auto) 12.05 K/uL (1.4-6.5); Neutrophils % (auto) 84.1 %; Nucleated RBC # (auto) 0.04 K/uL (0-0); Nucleated RBC % (auto) 0.3 %; Platelet Count 125 K/uL (130-400); RDW Coefficient of Variation 19.7 % (11.5-14.5); RDW Standard Deviation 67.9 fL (36.4-46.3); Red Blood Count 2.87 M/uL (4.2-5.4); White Blood Count 14.33 K/uL (4.8-10.8)
[2020-07-20 05:55] LABS: BUN Creatinine Ratio 25.7 (10-20); Calcium 8.6 mg/dl (8.5-10.1); Creatinine Clr Calc Pharmacy 73.2 ml/min; Est GFR (African American) 102.7; Est GFR (Non-African American) 88.6; Phosphorus 2.7 mg/dl (2.5-4.9); Potassium 3.9 mmol/L (3.5-5.1)
[2020-07-20] MEDS: CEFEPIME 2,000 MG in SYRINGE 0 ML IV SCH ×3 (06:13→20:42)
[2020-07-20] MEDS: INSULIN ASPART 100 UNITS/ML 3 ML PEN SC SCH ×4 (09:16→20:45)
[2020-07-20] MEDS: ASPIRIN 81 MG ECTAB PO SCH (09:17)
[2020-07-20] MEDS: APIXABAN 5 MG TABLET PO SCH ×2 (09:17→20:41)
[2020-07-20] MEDS: GABAPENTIN 100 MG CAP PO SCH ×3 (09:17→20:37)
[2020-07-20] MEDS: FLUDROCORTISONE ACETATE 0.1 MG TAB PO SCH (09:17)
[2020-07-20] MEDS: MAGNESIUM OXIDE 400 MG TAB PO SCH (09:17)
[2020-07-20] MEDS: PANTOprazole 40 MG TAB PO SCH ×2 (09:17→20:40)
[2020-07-20] MEDS: FLUTICASONE/VILANTEROL 100/25MCG 14 PUFFS/INHALER INH SCH (09:17)
[2020-07-20] MEDS: DULoxetine HCL 60 MG CAP PO SCH ×2 (09:18→20:37)
[2020-07-20] MEDS: PARoxetine HCL 20 MG TAB PO SCH (09:18)
[2020-07-20] MEDS: FUROSEMIDE 20 MG TAB PO SCH (09:18)
[2020-07-20] MEDS: DOCUSATE SODIUM/SENNA 50/8.6MG TAB PO SCH (09:18)
[2020-07-20] MEDS: FAMOTIDINE 20 MG TAB PO SCH ×2 (09:18→20:39)
--- NOTE | 2020-07-20 09:39 | Cardiology Progress Note ---
Date of Service July 20, 2020 Assessment & Plan (1) Aortic stenosis: (2) Atrial fibrillation: (3) Hypotension: (4) At risk for fluid volume overload: Patient is doing well from a cardiac standpoint with normal hemodynamics off pressors and with rate controlled atrial fibrillation. Thrombocytopenia has resolved, could restart anticoagulation with apixaban 5 mg twice daily. As previously noted, for a variety of reasons she would be a suboptimal candidate for TAVR, continue conservative management of moderate to severe aortic stenosis. She has been restarted on her low-dose diuretic (furosemide 20 mg daily), volume status appears reasonable. No active cardiac issues, will sign off. Please contact if any change in clinical status or new cardiac issues. Thank you. Admission and Anticipated Discharge Date Admission Date: July 16, 2020 Subjective Uneventful night. Patient weaned off norepinephrine yesterday, normotensive today. Rhythm remains atrial fibrillation with well-controlled rate (70-90 bpm). She was upset this morning that she did not have a solid diet, requesting a piece of toast. Otherwise doing well, denied any chest pain, dyspnea, or lightheadedness. She does feel weak and fatigued. Physical Exam Physical Exam: Chronically ill-appearing white female in no acute distress. Afebrile. Systolic blood pressure 62981 mmHg systolic range. Pulse 70-90 bpm and irregular. Skin: no ecchymoses or generalized lesions. HEENT: unremarkable. Neck: Jugular venous pulse one third of the way to the angle of the jaw at 70 degrees with increased respiratory variation, transmitted murmur to carotids. Lungs: Moderately decreased breath sounds but generally clear. Cardiac: Irregular rhythm with 2/6 crescendo decrescendo systolic ejection murmur right upper sternal border rating to the carotids and left sternal border, no diastolic murmur. Diminished but audible aortic closure sound. Chest: Access port left subclavian region. Abdomen benign. Extremities: teace pretibial edema, brisk radial and dorsalis pedis pulses. Extremities warm. Neurologic: Unsophisticated affect, grossly nonfocal. Results & Data ([facility]) Vital Signs (Past 12 Hours) Vital Signs Temp Pulse Resp BP Pulse Ox 07/20/20 09:10 84 23 108/64 07/20/20 08:00 84 25 H 108/64 94 07/20/20 04:00 97.5 F L 71 22 99/66 L 96 07/19/20 23:35 97.5 F L 83 22 97/59 L 94 Laboratory Results Hemoglobin 8.9, white count 14.3, platelet count 125,000. Normal electrolytes, BUN 17, creatinine 0.68. Diagnostic Findings Monitor showed atrial fibrillation with no malignant dysrhythmias over the past 72 hours. PG Care Time/CCT Total # of Minutes Spent Total Time Spent with Patient: Total time spent is greater than 50% in coordination of care (as documented) at patient's floor/unit and/or counseling patient: Coding Level of Care Code 98199 Subseq Hosp Care Lvl 3 Diagnoses Aortic stenosis I35.0 Atrial fibrillation I48.91 Hypotension I95.9 At risk for fluid volume overload Z91.89
--- NOTE | 2020-07-20 11:31 | Hospitalist Progress Note ---
Date of Service July 20, 2020 Assessment & Plan (1) Bacteremia: 08/23 bottles of blood cultures from 07/16 growing pansensitive Pseudomonas aeruginosa Repeat blood cultures from 07/18-no growth to date UNclear source as her urine from 07/16 has no indication of infection, and she is not neutropenic, so GI translocation would be less likely. CT of the chest without pneumonia CT abdomen/pelvis without evidence of inflammation or infection However, she does have multiple wounds on posterior shoulders left elbow and right leg-posterior shoulder wounds do seem more open and moist with mild surrounding erythema-could be possible source? Port does not appear infected Appreciate [facility] infectious disease consultation with recommendations as follows: "Given no clear source of infection, CLABSI is on top of the list of differential. - Remove mediport to prevent recurrent/relapsed infection - May continue cefepime as inpatient - When ready for discharge, switch cefepime to cipro 500 mg po bid to complete total 7 days from 07/20/20 - If for any reason, line salvage is sought, I recommend to po Cipro 500 mg po bid w/ antibiotic lock therapy w/ Cipro in mediport for total 14 days from negative blood cultures (please, contact pharmacy for dosing and dwell time for abx lock therapy). However, this increases the risk of relapsed infection." -Continue cefepime for now -Follow repeat cultures drawn on 07/18 (one from port to ensure no line infection) -We will discuss options for treatment to include possibly removing her port with the patient's family as the patient is unable to make decisions for herself. I will also include her oncologist and the discussion because if she can get by with a PICC line instead, that might be easier to do rather than replacing another port -Wound care for open wounds-using silver dressings -Follow wound culture taken from left posterior shoulder (2) Septic shock: Source bacteremia as above. Likely element of adrenal insufficiency as well as hypovolemia. -Now weaned off Levophed -Remains on IV hydrocortisone-wean down today to 50 mg IV every 8 hours -Remains on p.o. fludrocortisone which was started upon admission by home health clinical liaison-we will also wean off of this -Continue antibiotics as above -Advance diet to regular now that she is off vasopressors -We will remove Cerna catheter tomorrow if urine output picks up (3) Right breast cancer with T3 tumor, >5 cm in greatest dimension: ER positive HER2/jose negative. Currently undergoing neoadjuvant chemotherapy under Dr Spencer. No stage from other notes. - Will follow up as an outpatient with [facility]. -I have discussed her condition with her primary oncologist who is aware of her hospitalization-we will now discuss with him about possible removal of port as above -She has very poor p.o. intake likely secondary to side effect from chemotherapy-we will give 500 mL of normal saline today and encouraged p.o. intake (4) Atrial fibrillation with rapid ventricular response: Improved rate with IV fluids suggestive of dehydrated state in ER. -Initially held apixaban from home but have since restarted given that previous thrombocytopenia and anemia are now improved -Continue to hold home bisoprolol while blood pressures are soft Continue home digoxin Continue to follow on telemetry Appreciate cardiology consultation (5) Normocytic anemia: Concerning drop in ER from Hgb 10.7 [07/05] to 8.1, then 6.8. Likely secondary to chemotherapy bone marrow suppression but difficult to rule out GI bleed from unreliable history from patient. - S/p 2 units PRBCs on 07/16, hemoglobin has since remained stable around 9 since then Hemoccult stool pending (6) Thrombocytopenia: Suspect secondary to bone marrow suppression with chemotherapy. Platelets now improved up to 125 - Monitor CBC with AM labs. (7) Hypoxia: Aim O2 sats > 94%. - Oxygen supplement as needed (8) Dementia: On no medications for such. At risk of delirium. Unclear baseline. - Frequent reorientation. -Supportive care (9) Aortic stenosis: Notable recent echocardiogram with moderate-severe aortic stenosis. Follows with cardiology (Dr Koenig). - Cardiology consulted - Aim to keep SBP slightly higher to avoid low perfusion. - Monitor Not likely a candidate for TAVR given her cancer (10) Pulmonary embolism on left: Chronic left-sided thin linear filling defect in a segmental branch seen on CTA chest on admission Continue apixaban Should continue anticoagulation indefinitely given her cancer (11) Restless legs syndrome: Continue Mirapex (12) Hypothyroidism: Continue home levothyroxine TSH here normal at 1.56 (13) DVT prophylaxis: Apixaban - SCDs Disposition-continued stay in PCU. PT/OT consultations were placed-we will await evaluations to determine if she needs SNF placement. She lives alone and her brother and his check on her on a daily basis, however she has significant cognitive impairment and a history of multiple falls. I do not think she is safe to go home alone at this time Admission and Anticipated Discharge Date Admission Date: July 16, 2020 Subjective Patient reports she was upset this morning and is worried about being in the hospital for so long. We reviewed her medical issues and she seemed more satisfied. She denies any chest pain or shortness of breath, blood pressures have been improved. Has been afebrile. She denies any abdominal pain. She has not had a bowel movement. Her urine output has been only 100 mL for the last shift. Nursing reports that she is barely eating or drinking anything. Review of Systems Review of Systems: All systems reviewed & are unremarkable except as noted in HPI & below Physical Exam Constitutional: WD/WN, vitals as above Eyes: + anicteric sclerae Neck: trachea midline, no thyromegaly Respiratory: normal respiratory effort, lungs clear to auscultation Cardiovascular: Rate/Rhythm: regular rate and + irregularly irregular Heart Sounds: + murmur (3/6 AMOS at the RUSB) Chest (Breasts): Chest: normal inspection of chest and + vascular access device or port (Port in place without any surrounding erythema) Gastrointestinal (Abdomen): normal bowel sounds, soft, nontender, no hepatosplenomegaly Musculoskeletal: Extremities: extremities normal to inspection; no cyanosis and no clubbing Skin: no rashes, warm and dry + wound (Bilat posterior shoulders with 1-2 cm circular open wounds w/ mild erythema) Neurologic: moves all extremities and awake; no focal motor deficits Psychiatric: Orientation: alert, oriented to person and cooperative Lymphatic: no lymphedema Results & Data Results & Data ([facility]) Vital Signs (Past 12 Hours) Vital Signs Temp Pulse Resp BP Pulse Ox 07/20/20 09:10 84 23 108/64 07/20/20 08:00 84 25 H 108/64 94 07/20/20 04:00 36.4 C L 71 22 99/66 L 96 07/19/20 23:35 36.4 C L 83 22 97/59 L 94 Laboratory Results 07/20/20 07/20/20 07/20/20 Range/Units 20:43 16:12 11:00 WBC (4.8-10.8) K/uL RBC (4.2-5.4) M/uL Hgb (12.0-16.0) g/dL Hct (37-47) % MCV (80-100) fL MCH (25-34) pg MCHC (32-36) g/dL RDW Std Deviation (36.4-46.3) fL RDW Coeff of Demetra (11.5-14.5) % Plt Count (130-400) K/uL MPV (7.4-10.4) fL Immature Gran % (Auto) % Neut % (Auto) % Lymph % (Auto) % [place] % (Auto) % Eos % (Auto) % Baso % (Auto) % Neut # (Auto) (1.4-6.5) K/uL Lymph # (Auto) (1.2-3.4) K/uL [place] # (Auto) (0.11-0.59) K/uL Eos # (Auto) (0-0.5) K/uL Baso # (Auto) (0-0.2) K/uL Immature Gran # (Auto) (0.00-0.02) K/uL Absolute Nucleated RBC (0-0) K/uL Nucleated RBC % (auto) % Sodium (136-145) mmol/L Potassium (3.5-5.1) mmol/L Chloride (98-107) mmol/L Carbon Dioxide (21-32) mmol/L Anion Gap (3-11) BUN (7-18) mg/dl Creatinine (0.6-1.2) mg/dl Est Cr Clr Drug Dosing ml/min Est GFR ( Amer) Est GFR (Non-Af Amer) BUN/Creatinine Ratio (10-20) Glucose (70-99) mg/dl POC Glucose 102 H 110 H 125 H (70-99) mg/dl Calcium (8.5-10.1) mg/dl Phosphorus (2.5-4.9) mg/dl Magnesium (1.8-2.4) mg/dl 07/20/20 07/20/20 07/20/20 Range/Units 07:28 04:58 04:58 WBC 14.33 H (4.8-10.8) K/uL RBC 2.87 L (4.2-5.4) M/uL Hgb 8.9 L (12.0-16.0) g/dL Hct 27.2 L (37-47) % MCV 94.8 (80-100) fL MCH 31.0 (25-34) pg MCHC 32.7 (32-36) g/dL RDW Std Deviation 67.9 H (36.4-46.3) fL RDW Coeff of Demetra 19.7 H (11.5-14.5) % Plt Count 125 L (130-400) K/uL MPV 11.3 H (7.4-10.4) fL Immature Gran % (Auto) 4.2 % Neut % (Auto) 84.1 % Lymph % (Auto) 5.9 % [place] % (Auto) 5.7 % Eos % (Auto) 0.0 % Baso % (Auto) 0.1 % Neut # (Auto) 12.05 H (1.4-6.5) K/uL Lymph # (Auto) 0.84 L (1.2-3.4) K/uL [place] # (Auto) 0.82 H (0.11-0.59) K/uL Eos # (Auto) 0.00 (0-0.5) K/uL Baso # (Auto) 0.02 (0-0.2) K/uL Immature Gran # (Auto) 0.60 H (0.00-0.02) K/uL Absolute Nucleated RBC 0.04 H (0-0) K/uL Nucleated RBC % (auto) 0.3 % Sodium 141 (136-145) mmol/L Potassium 3.9 (3.5-5.1) mmol/L Chloride 111 H (98-107) mmol/L Carbon Dioxide 28 (21-32) mmol/L Anion Gap 2.0 L (3-11) BUN 17 D (7-18) mg/dl Creatinine 0.68 (0.6-1.2) mg/dl Est Cr Clr Drug Dosing 73.2 ml/min Est GFR ( Amer) 102.7 Est GFR (Non-Af Amer) 88.6 BUN/Creatinine Ratio 25.7 H (10-20) Glucose 101 H (70-99) mg/dl POC Glucose 102 H (70-99) mg/dl Calcium 8.6 (8.5-10.1) mg/dl Phosphorus 2.7 (2.5-4.9) mg/dl Magnesium 2.0 (1.8-2.4) mg/dl PG Care Time/CCT Total # of Minutes Spent Total Time Spent with Patient: Total time spent is greater than 50% in coordination of care (as documented) at patient's floor/unit and/or counseling patient: Coding Level of Care Code 72195 Subseq Hosp Care Lvl 3 Diagnoses Bacteremia R78.81 Septic shock A41.9; R65.21 Right breast cancer with T3 tumor, >5 cm in greatest dimension C50.911 Atrial fibrillation with rapid ventricular response I48.91 Normocytic anemia D64.9 Thrombocytopenia D69.6 Hypoxia R09.02 Dementia F03.90 Aortic stenosis I35.0 Pulmonary embolism on left I26.99 Restless legs syndrome G25.81 Hypothyroidism E03.9 DVT prophylaxis Z29.9
[2020-07-20] MEDS: SODIUM CHLORIDE 0.9% 500 ML IV SCH ×2 (12:42→18:51)
--- NOTE | 2020-07-20 12:53 | Pharmacy Report ---
Pharmacy Glycemic Short Note 2 - Date of Service July 20, 2020 - Glycemic Short BSG Results (Last 24 hours): 07/19/20 07/19/20 07/20/20 16:24 20:15 04:58 Glucose 101 H POC Glucose 121 H 130 H 07/20/20 07/20/20 07:28 11:00 Glucose POC Glucose 102 H 125 H OUTPATIENT ANTIDIABETIC REGIMEN: * N/A * A1c 6.4% ASSESSMENT: 07/20 * Patient has received 10 units of insulin over the past 24 hours, all of which was basal * Patient has had good glycemic control and is not currently being treated with anti-diabetic agents outpatient, A1c 6.4% * Will hold lantus this evening and monitor patient is being titrated off of hydrocortisone and florinef * Will continue current Novolog parameters 07/18 * 69 year old female admitted with septic shock/bacteremia. PMHx significant for breast cancer, afib, anemia, dementia, aortic stenosis. With hypotension on admission, currently on norepinephrine drip * Pharmacy consulted to assist with glycemic control. No hx of diabetes noted on past medical history report. A1c pending * Received total of 15 units of insulin yesterday and BSGs today have been stable, continue with basal at HS to help with coverage of hydrocortisone PLAN FOR INPATIENT GLYCEMIC CONTROL: * Basal insulin * Lantus- HOLD * Bolus insulin * NovoLog per scale ACHS or Q6hrs while NPO * Goal Range: Low 110 mg/dL - High 180 mg/dL * Correction Factor: 30 mg/dL/unit * Nutritional / Prandial insulin per carb ratio of 1 unit per 10 grams CHO consumed
[2020-07-20] MEDS: DIGOXIN 0.25 MG TAB PO SCH (15:53)
[2020-07-20] MEDS: MONTELUKAST SODIUM 10 MG TABLET PO SCH (20:39)
[2020-07-20] MEDS: ATORVASTATIN 40 MG TAB PO SCH (20:40)
[2020-07-20] MEDS: PRAMIPEXOLE DIHYDROCHLO 0.5 MG TAB PO SCH (20:40)
[2020-07-21] MEDS: LEVOTHYROXINE SODIUM 100 MCG TABLET PO SCH (05:15)
[2020-07-21] MEDS: HYDROCORTISONE SOD 50 MG in SYRINGE 0 ML IV SCH ×3 (05:15→21:14)
[2020-07-21] MEDS: CEFEPIME 2,000 MG in SYRINGE 0 ML IV SCH ×3 (05:15→21:14)
[2020-07-21 05:17] LABS: Hematocrit (blood only) 28.8 % (37-47); Hemoglobin 9.2 g/dL (12.0-16.0); Mean Corpuscular Hemoglobin 31.1 pg (25-34); Mean Corpuscular Hgb Conc 31.9 g/dL (32-36); Mean Corpuscular Volume 97.3 fL (80-100); Mean Platelet Volume 11.5 fL (7.4-10.4); Nucleated RBC # (auto) 0.08 K/uL (0-0); Nucleated RBC % (auto) 0.6 %; Platelet Count 164 K/uL (130-400); RDW Coefficient of Variation 19.7 % (11.5-14.5); RDW Standard Deviation 68.8 fL (36.4-46.3); Red Blood Count 2.96 M/uL (4.2-5.4); White Blood Count 14.45 K/uL (4.8-10.8)
[2020-07-21 05:27] LABS: BUN Creatinine Ratio 30.7 (10-20); Calcium 8.6 mg/dl (8.5-10.1); Creatinine Clr Calc Pharmacy 72.1 ml/min; Est GFR (African American) 102.2; Est GFR (Non-African American) 88.2; Potassium 4.1 mmol/L (3.5-5.1)
[2020-07-21 05:44] LABS: Basophils # (auto) 0.02 K/uL (0-0.2); Basophils % (auto) 0.1 %; Echinocytes 1+; Immature Granulocytes # (auto) 0.69 K/uL (0.00-0.02); Immature Granulocytes % (auto) 4.8 %; Lymphocytes % (auto) 6.9 %; Monocytes # (auto) 0.79 K/uL (0.11-0.59); Monocytes % (auto) 5.5 %; Neutrophils # (auto) 11.95 K/uL (1.4-6.5); Neutrophils % (auto) 82.7 %; Polychromasia 1+
[2020-07-21] MEDS: PARoxetine HCL 20 MG TAB PO SCH (08:43)
[2020-07-21] MEDS: GABAPENTIN 100 MG CAP PO SCH ×3 (08:43→19:28)
[2020-07-21] MEDS: DOCUSATE SODIUM/SENNA 50/8.6MG TAB PO SCH ×2 (08:43→19:27)
[2020-07-21] MEDS: ASPIRIN 81 MG ECTAB PO SCH (08:44)
[2020-07-21] MEDS: FAMOTIDINE 20 MG TAB PO SCH ×2 (08:45→19:29)
[2020-07-21] MEDS: FLUDROCORTISONE ACETATE 0.1 MG TAB PO SCH (08:45)
[2020-07-21] MEDS: DULoxetine HCL 60 MG CAP PO SCH ×2 (08:45→19:28)
[2020-07-21] MEDS: FLUTICASONE/VILANTEROL 100/25MCG 14 PUFFS/INHALER INH SCH (08:45)
[2020-07-21] MEDS: APIXABAN 5 MG TABLET PO SCH (08:46)
[2020-07-21] MEDS: PANTOprazole 40 MG TAB PO SCH ×2 (08:46→19:27)
[2020-07-21] MEDS: MAGNESIUM OXIDE 400 MG TAB PO SCH (08:46)
--- NOTE | 2020-07-21 09:15 | Surgery Consultation ---
Date of Consultation July 21, 2020 Assessment & Plan (1) Bacteremia: This is a 69yF with a PMH of afib and PE on anticoagulation, aortic stenosis, dementia, anxiety, and breast ca who presented to the [facility] ED on 07/16/20 in septic shock. Patient found to have blood cultures + for pseudomonas aeruginosa. Since starting on abx her blood cultures have cleared. Wound cultures have been obtained and are pending. Today patient is currently off pressors with a stable BP, WBC 14.4, and patient is afebrile. It was recommended by ID and Oncology to remove patient's port to prevent recurrent infection. She apparently only has one more session of chemo left. Of note patient was started on eliquis on 07/20. From our standpoint it would be ideally held prior to surgery, at least 2-3 days. We will consider removing port this admission if patient is here early next wk, vs scheduling as outpatient if she were to be discharged to home soon. History of Present Illness Attending Physician: Stella Allen MD History of Present Illness This is a 69yF with a PMH of afib and PE on anticoagulation, aortic stenosis, dementia, anxiety, and breast ca who presented to the [facility] ED on 07/16/20 in septic shock. Of note majority of history obtain from chart review and discussion with hospitalist and RN as patient with history of dementia. On day of admission blood cultures were drawn and found to be positive for pseudomonas aeruginosa. Patient required admission to the ICU to be started on pressors and IV abx. Patient does have a L chest port that was placed on 04/[address] Clark. She also does have wounds on the back of her neck which could also be a questionable source of infection. Infectious disease was consulted during her stay and ultimately recommended removing the mediport to prevent recurrent infection. Surgery was consulted for consideration of removal. Allergies Allergy/AdvReac Type Severity Reaction Status Date / Time adhesive tape Allergy Mild Rash Verified 07/16/20 18:40 iodine Allergy Mild Rash Verified 07/16/20 18:40 Home Medications Medication Instructions Recorded Confirmed Type albuterol sulfate 90 mcg/actuation 2 puffs INH Q6H PRN 03/30/20 07/16/20 History aerosol inhaler apixaban 5 mg tablet 5 mg PO BID 03/30/20 07/16/20 History aspirin 81 mg tablet,delayed 81 mg PO QAM 03/30/20 07/16/20 History release atorvastatin 40 mg tablet 40 mg PO PM 03/30/20 07/16/20 History bisoprolol fumarate 5 mg tablet 5 mg PO QAM 03/30/20 07/16/20 History cholecalciferol (vitamin D3) 25 25 mcg PO QAM 03/30/20 07/16/20 History mcg (1,000 unit) capsule digoxin 250 mcg (0.25 mg) tablet 250 mcg PO QAM 03/30/20 07/16/20 History duloxetine 60 mg capsule,delayed 60 mg PO BID 03/30/20 07/16/20 History release sprinkle fluticasone furoate 100 1 puffs INH QAM 03/30/20 07/16/20 History mcg-vilanterol 25 mcg/dose inhalation powder furosemide 20 mg tablet 20 mg PO QAM 03/30/20 07/16/20 History gabapentin 100 mg capsule 200 mg PO TID 03/30/20 07/16/20 History levothyroxine 100 mcg capsule 100 mcg PO QAM 03/30/20 07/16/20 History loratadine 10 mg tablet 10 mg PO QAM PRN 03/30/20 07/16/20 History magnesium oxide 400 mg PO QAM 03/30/20 07/16/20 History montelukast 10 mg tablet 10 mg PO HS 03/30/20 07/16/20 History omeprazole 40 mg capsule,delayed 40 mg PO BID 03/30/20 07/16/20 History release paroxetine HCl 20 mg tablet 20 mg PO DAILY 03/30/20 07/16/20 History pramipexole 1 mg tablet 1 mg PO HS 03/30/20 07/16/20 History Patient History Medical History Anemia Anxiety Aortic stenosis moderate to severe Arthritis Asthma Atrial fibrillation Breast cancer, right Cardiac murmur has had for long time Dementia Depression GERD (gastroesophageal reflux disease) Hearing deficit Hyperlipidemia Hypertension Hypothyroidism 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 related to deviated trachea> no recent surgeries/anesthesia > most recent procedure 2003 [facility] H/O shoulder surgery right total replacement then reverse total > [facility] by Dr. Clifton> 1998 History of arthroscopic knee surgery right History of cardiac cath no stents > over 5 yrs ago > [facility] later [facility]. sees Dr. Koenig [facility] History of colonoscopy History of hip surgery bilat replacements > [facility] > [facility] later [facility] > unsure when but prior to 2003 History of tooth extraction History of total right knee replacement 2003 @ [facility] Family History Sister Diabetes Breast cancer Grandmother (Maternal) Thyroid cancer Social History Smoking Status: Never smoker Second Hand Exposure: No; Do You Dip or Chew Tobacco: No; Tobacco Cessation Education Requested by Patient: No Hx Alcohol Use: No Hx Substance Use: No Preferred Language: Slovenian Communication Ability: Effective Agronomy Research Manager Required: No Beliefs That Will Affect Care: None marital status: Single Current Living Situation: Alone current occupational status: retired 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 How many Children do You have: 0 Other Information That Helps Us Care for You: No Feels Safe at Home: Yes Safety Concerns: Feels Safe At This Time Assistive Devices: Glasses, Oxygen - Continuous and Walker Review of Systems Constitutional: no fever Integumentary: no issues noted with port Physical Exam Physical Exam: awake, oriented to time and person Constitutional: no acute distress Respiratory: normal respiratory effort (on supplemental O2) Skin: no erythema or concern for infection noted around port Results & Data ([facility]) Vital Signs (Past 12 Hours) Vital Signs Temp Pulse Pulse Resp BP BP Pulse Ox 07/21/20 04:00 36.7 C 74 18 98 07/21/20 03:18 67 23 100/62 07/21/20 03:00 73 20 07/20/20 23:50 36.3 C L 88 24 106/70 95 PG Care Time/CCT Total # of Minutes Spent Total Time Spent with Patient: Total time spent is greater than 50% in coordination of care (as documented) at patient's floor/unit and/or counseling patient: Coding Level of Care Code 89752 Initial Inpt Care Lvl 1 Diagnoses Bacteremia R78.81
[2020-07-21] MEDS: DIGOXIN 0.25 MG TAB PO SCH (16:04)
--- NOTE | 2020-07-21 17:52 | Hospitalist Progress Note ---
Date of Service July 21, 2020 Assessment & Plan (1) Bacteremia: 1/ bottles of blood cultures from 07/16 growing pansensitive Pseudomonas aeruginosa Repeat blood cultures from 07/18-no growth to date UNclear source as her urine from 07/16 has no indication of infection, and she is not neutropenic, so GI translocation would be less likely. CT of the chest without pneumonia CT abdomen/pelvis without evidence of inflammation or infection However, she does have multiple wounds on posterior shoulders left elbow and right leg-posterior shoulder wounds do seem more open and moist with mild surrounding erythema-could be possible source? Port does not appear infected, but certainly could be Appreciate [facility] infectious disease consultation with recommendations as follows: "Given no clear source of infection, CLABSI is on top of the list of dif ferential. - Remove mediport to prevent recurrent/relapsed infection - May continue cefepime as inpatient - When ready for discharge, switch cefepime to cipro 500 mg po bid to complete total 7 days from 07/20/20 - If for any reason, line salvage is sought, I recommend to po Cipro 500 mg po bid w/ antibiotic lock therapy w/ Cipro in mediport for total 14 days from negative blood cultures (please, contact pharmacy for dosing and dwell time for abx lock therapy). However, this increases the risk of relapsed infection." I discussed these recommendations with the patient's brother who is her decision-maker as well as with the surgical team. I also discussed her care with her oncologist, Dr. Spencer. Plan to hold Eliquis for 2 to 3 days and remove port on Sunday We will place PICC line after that for her last round of chemotherapy. -Continue cefepime for now and then can switch to p.o. Cipro as above to complete 7 more days -Follow repeat cultures drawn on 07/18 (one from port to ensure no line infection) -Wound care for open wounds-using silver dressings -Follow wound culture taken from left posterior shoulder-no growth to date (2) Septic shock: Source bacteremia as above. Likely element of adrenal insufficiency as well as hypovolemia. Blood pressures are improved today -Now weaned off Levophed -Remains on IV hydrocortisone-wean down again today to 50 mg IV every 12 hours -Remains on p.o. fludrocortisone which was started upon admission by firewall administrator-we will discontinue this -Continue antibiotics as above -Continue Cerna catheter for another day until able to get up and move without as much tachycardia or hypoxia (3) Right breast cancer with T3 tumor, >5 cm in greatest dimension: ER positive HER2/jose negative. Currently undergoing neoadjuvant chemotherapy under Dr Spencer. No stage from other notes. - Will follow up as an outpatient with [facility]. -I have discussed her condition with her primary oncologist -Continue to encourage p.o. intake (4) Atrial fibrillation with rapid ventricular response: Improved rate with IV fluids suggestive of dehydrated state in ER. -Initially held apixaban from home but restarted given that previous thrombocytopenia and anemia are now improved. However now will hold as above for port removal -Continue to hold home bisoprolol while blood pressures are soft Continue home digoxin Continue to follow on telemetry Appreciate cardiology consultation (5) Normocytic anemia: Concerning drop in ER from Hgb 10.7 [07/05] to 8.1, then 6.8. Likely secondary to chemotherapy bone marrow suppression but difficult to rule out GI bleed from unreliable history from patient. - S/p 2 units PRBCs on 07/16, hemoglobin has since remained stable around 9 since then Hemoccult stool pending still as she is constipated (6) Thrombocytopenia: Suspect secondary to bone marrow suppression with chemotherapy. Platelets now improved up to 164 - Monitor CBC with AM labs. (7) Hypoxia: Aim O2 sats > 94%. - Oxygen supplement as needed Continues, possibly secondary to atelectasis versus pleural effusion seen on chest x-ray from hypoalbuminemia (8) Dementia: On no medications for such. At risk of delirium. Unclear baseline. - Frequent reorientation. -Supportive care (9) Aortic stenosis: Notable recent echocardiogram with moderate-severe aortic stenosis. Follows with cardiology (Dr Koenig). - Cardiology consulted - Aim to keep SBP slightly higher to avoid low perfusion. - Monitor Not likely a candidate for TAVR given her cancer (10) Pulmonary embolism on left: Chronic left-sided thin linear filling defect in a segmental branch seen on CTA chest on admission Continue apixaban but holding for now as above for port removal Should continue anticoagulation indefinitely given her cancer (11) Restless legs syndrome: Continue Mirapex (12) Hypothyroidism: Continue home levothyroxine TSH here normal at 1.56 (13) DVT prophylaxis: Apixaban - SCDs Disposition-continued stay in PCU until port removal on Sunday. PT/OT consultations were placed-recommend rehab She lives alone and her brother and his check on her on a daily basis, however she has significant cognitive impairment and a history of multiple falls. I do not think she is safe to go home alone at this time Brother Ramón and his were updated by phone again on 07/21 Admission and Anticipated Discharge Date Admission Date: July 16, 2020 Subjective Patient seems a little less confused today. She is more depressed though and her affect. She is able to tell me that she is in [place], but has trouble telling me the name of the place where she is at. She denies chest pain or shortness of breath. She worked with physical therapy today and got quite winded and tachycardic into the 120s. Nursing had concerns about removing her Cerna catheter given the easy fatigability and hypoxia with minimal movement so we left the Cerna catheter in place. I discussed the case with her surgeon that placed her port and decision was made to remove the port however she needs to be off Eliquis for 2 or 3 days and will have the port removed then on Sunday. Review of Systems Review of Systems: All systems reviewed & are unremarkable except as noted in HPI & below Physical Exam Constitutional: WD/WN, vitals as above Eyes: + anicteric sclerae Neck: trachea midline, no thyromegaly Respiratory: normal respiratory effort, lungs clear to auscultation Cardiovascular: Rate/Rhythm: regular rate and + irregularly irregular Heart Sounds: + murmur (3/6 AMOS at the RUSB) Chest (Breasts): Chest: normal inspection of chest and + vascular access device or port (Port in place without any surrounding erythema) Gastrointestinal (Abdomen): normal bowel sounds, soft, nontender, no hepatospl enomegaly Musculoskeletal: Extremities: extremities normal to inspection; no cyanosis and no clubbing Skin: no rashes, warm and dry + wound (Bilat posterior shoulders with OPTi foam in place over wounds) Neurologic: moves all extremities and awake; no focal motor deficits Psychiatric: Orientation: alert, oriented to person, oriented to place and cooperative Genitourinary: Cerna catheter in place draining clear yellow urine Lymphatic: no lymphedema Results & Data Results & Data ([facility]) Vital Signs (Past 12 Hours) Vital Signs Temp Pulse Pulse Resp BP BP Pulse Ox 12/02/20 16:04 85 07/21/20 15:55 113/76 07/21/20 15:16 36.4 C L 77 21 96 07/21/20 14:11 36.5 C 07/21/20 14:00 92 H 27 H 07/21/20 13:18 103 H 25 H 111/71 95 07/21/20 12:00 87 18 96 07/21/20 11:18 82 29 H 105/73 97 07/21/20 10:27 105 H 24 118/98 85 L 07/21/20 10:00 82 32 H 91 07/21/20 09:53 36.4 C L 07/21/20 09:18 87 29 H 112/69 07/21/20 08:00 94 H 37 H 07/21/20 07:46 91 H 21 111/62 95 07/21/20 07:17 70 24 110/64 07/21/20 07:00 86 25 H Laboratory Results 07/21/20 07/21/20 07/20/20 Range/Units 04:39 04:39 20:43 WBC 14.45 H (4.8-10.8) K/uL RBC 2.96 L (4.2-5.4) M/uL Hgb 9.2 L (12.0-16.0) g/dL Hct 28.8 L (37-47) % MCV 97.3 (80-100) fL MCH 31.1 (25-34) pg MCHC 31.9 L (32-36) g/dL RDW Std Deviation 68.8 H (36.4-46.3) fL RDW Coeff of Demetra 19.7 H (11.5-14.5) % Plt Count 164 (130-400) K/uL MPV 11.5 H (7.4-10.4) fL Immature Gran % (Auto) 4.8 % Neut % (Auto) 82.7 % Lymph % (Auto) 6.9 % Luna % (Auto) 5.5 % Eos % (Auto) 0.0 % Baso % (Auto) 0.1 % Neut # (Auto) 11.95 H (1.4-6.5) K/uL Lymph # (Auto) 1.00 L (1.2-3.4) K/uL Luna # (Auto) 0.79 H (0.11-0.59) K/uL Eos # (Auto) 0.00 (0-0.5) K/uL Baso # (Auto) 0.02 (0-0.2) K/uL Immature Gran # (Auto) 0.69 H (0.00-0.02) K/uL Absolute Nucleated RBC 0.08 H (0-0) K/uL Nucleated RBC % (auto) 0.6 % Polychromasia 1+ Echinocytes 1+ Sodium 142 (136-145) mmol/L Potassium 4.1 (3.5-5.1) mmol/L Chloride 112 H (98-107) mmol/L Carbon Dioxide 29 (21-32) mmol/L Anion Gap 1.0 L (3-11) BUN 21 H (7-18) mg/dl Creatinine 0.69 (0.6-1.2) mg/dl Est Cr Clr Drug Dosing 72.1 ml/min Est GFR ( Amer) 102.2 Est GFR (Non-Af Amer) 88.2 BUN/Creatinine Ratio 30.7 H (10-20) Glucose 98 (70-99) mg/dl POC Glucose 102 H (70-99) mg/dl Calcium 8.6 (8.5-10.1) mg/dl PG Care Time/CCT Total # of Minutes Spent Total Time Spent with Patient: Total time spent is greater than 50% in coordination of care (as documented) at patient's floor/unit and/or counseling patient: Coding Level of Care Code 55286 Subseq Hosp Care Lvl 3 Diagnoses Bacteremia R78.81 Septic shock A41.9; R65.21 Right breast cancer with T3 tumor, >5 cm in greatest dimension C50.911 Atrial fibrillation with rapid ventricular response I48.91 Normocytic anemia D64.9 Thrombocytopenia D69.6 Hypoxia R09.02 Dementia F03.90 Aortic stenosis I35.0 Pulmonary embolism on left I26.99 Restless legs syndrome G25.81 Hypothyroidism E03.9 DVT prophylaxis Z29.9
[2020-07-21] MEDS ORDERED: POLYETHYLENE (MIRALAX) 17 GM PACK PO ONE (18:00)
[2020-07-21] MEDS: MONTELUKAST SODIUM 10 MG TABLET PO SCH (19:27)
[2020-07-21] MEDS: PRAMIPEXOLE DIHYDROCHLO 0.5 MG TAB PO SCH (19:28)
[2020-07-21] MEDS: ATORVASTATIN 40 MG TAB PO SCH (19:28)
[2020-07-22 05:07] LABS: Hematocrit (blood only) 29.7 % (37-47); Hemoglobin 9.7 g/dL (12.0-16.0); Mean Corpuscular Hemoglobin 31.8 pg (25-34); Mean Corpuscular Hgb Conc 32.7 g/dL (32-36); Mean Corpuscular Volume 97.4 fL (80-100); Mean Platelet Volume 11.3 fL (7.4-10.4); Nucleated RBC # (auto) 0.08 K/uL (0-0); Nucleated RBC % (auto) 0.6 %; Platelet Count 184 K/uL (130-400); RDW Coefficient of Variation 20.1 % (11.5-14.5); RDW Standard Deviation 68.8 fL (36.4-46.3); Red Blood Count 3.05 M/uL (4.2-5.4); White Blood Count 14.21 K/uL (4.8-10.8)
[2020-07-22] MEDS: LEVOTHYROXINE SODIUM 100 MCG TABLET PO SCH (05:28)
[2020-07-22] MEDS: CEFEPIME 2,000 MG in SYRINGE 0 ML IV SCH ×3 (05:29→21:58)
[2020-07-22 05:32] LABS: BUN Creatinine Ratio 33.6 (10-20); Calcium 8.7 mg/dl (8.5-10.1); Creatinine Clr Calc Pharmacy 74.3 ml/min; Est GFR (African American) 103.2; Est GFR (Non-African American) 89.1; Potassium 3.9 mmol/L (3.5-5.1)
[2020-07-22 05:36] LABS: Anisocytosis Present; Basophils # (auto) 0.02 K/uL (0-0.2); Basophils % (auto) 0.1 %; Echinocytes 1+; Immature Granulocytes # (auto) 0.54 K/uL (0.00-0.02); Immature Granulocytes % (auto) 3.8 %; Lymphocytes # (auto) 1.29 K/uL (1.2-3.4); Lymphocytes % (auto) 9.1 %; Monocytes # (auto) 0.49 K/uL (0.11-0.59); Monocytes % (auto) 3.4 %; Neutrophils # (auto) 11.87 K/uL (1.4-6.5); Neutrophils % (auto) 83.6 %; Polychromasia 1+; Tear Drop Cells 1+
[2020-07-22] MEDS: HYDROCORTISONE SOD 50 MG in SYRINGE 0 ML IV SCH (08:59)
[2020-07-22] MEDS: DOCUSATE SODIUM/SENNA 50/8.6MG TAB PO SCH ×2 (09:00→20:23)
[2020-07-22] MEDS: MAGNESIUM OXIDE 400 MG TAB PO SCH (09:00)
[2020-07-22] MEDS: DULoxetine HCL 60 MG CAP PO SCH ×2 (09:00→20:23)
[2020-07-22] MEDS: PARoxetine HCL 20 MG TAB PO SCH (09:00)
[2020-07-22] MEDS: ASPIRIN 81 MG ECTAB PO SCH (09:01)
[2020-07-22] MEDS: FAMOTIDINE 20 MG TAB PO SCH ×2 (09:01→20:23)
[2020-07-22] MEDS: FLUTICASONE/VILANTEROL 100/25MCG 14 PUFFS/INHALER INH SCH (09:01)
[2020-07-22] MEDS: GABAPENTIN 100 MG CAP PO SCH ×2 (09:01→13:44)
[2020-07-22] MEDS: POLYETHYLENE (MIRALAX) 17 GM PACK PO SCH (09:02)
[2020-07-22] MEDS: PANTOprazole 40 MG TAB PO SCH ×2 (09:02→20:23)
--- NOTE | 2020-07-22 15:08 | Surgery Progress Note ---
Date of Service July 22, 2020 Assessment & Plan (1) Bacteremia: agree port should probably be removed. hold anticoagulation at least 2-3 days. will plan port removal on Sunday. pt agreeable to plan. Admission and Anticipated Discharge Date Admission Date: July 16, 2020 Subjective awake. mildly confused. appears comfortable Physical Exam Physical Exam: port in place /functioning. no erythema or warmth. Results & Data ([facility]) Vital Signs (Past 12 Hours) Vital Signs Temp Pulse Resp BP Pulse Ox 07/22/20 13:18 84 33 H 123/78 94 07/22/20 11:18 81 28 H 122/65 95 07/22/20 07:57 64 07/22/20 07:30 36.3 C L 07/22/20 07:18 73 28 H 107/68 94 07/22/20 03:53 36.6 C 07/22/20 03:18 68 22 100/55 L 94 PG Care Time/CCT Total # of Minutes Spent Total Time Spent with Patient: Total time spent is greater than 50% in coordin ation of care (as documented) at patient's floor/unit and/or counseling patient: Coding Level of Care Code 54055 Subseq Hosp Care Lvl 2 Diagnoses Bacteremia R78.81
[2020-07-22] MEDS: DIGOXIN 0.25 MG TAB PO SCH (16:30)
--- NOTE | 2020-07-22 17:30 | Hospitalist Progress Note ---
Date of Service July 22, 2020 Assessment & Plan (1) Bacteremia: 1/ bottles of blood cultures from 07/16 growing pansensitive Pseudomonas aeruginosa Repeat blood cultures from 07/18 remain no growth to date UNclear source as her urine from 07/16 has no indication of infection, and she is not neutropenic, so GI translocation would be less likely. CT of the chest without pneumonia CT abdomen/pelvis without evidence of inflammation or infection However, she does have multiple wounds on posterior shoulders left elbow and right leg-posterior shoulder wounds do seem more open and moist with mild surrounding erythema-could be possible source? Port does not appear infected, but certainly could be Wound culture from left posterior shoulder growing Adriana Appreciate [facility] infectious disease consultation with recommendations as follows: "Given no clear source of infection, CLABSI is on top of the list of differential. - Remove mediport to prevent recurrent/relapsed infection - May continue cefepime as inpatient - When ready for discharge, switch cefepime to cipro 500 mg po bid to complete total 7 days from 07/20/20 - If for any reason, line salvage is sought, I recommend to po Cipro 500 mg po bid w/ antibiotic lock therapy w/ Cipro in mediport for total 14 days from negative blood cultures (please, contact pharmacy for dosing and dwell time for abx lock therapy). However, this increases the risk of relapsed infection." I discussed these recommendations with the patient's brother who is her decision-maker as well as with the surgical team. I also discussed her care with her oncologist, Dr. Spencer. Plan to hold Eliquis for 2 to 3 days and remove port on Sunday We will place PICC line after that for her last round of chemotherapy. -Continue cefepime for now and then can switch to p.o. Cipro as above to complete 7 more days -Follow repeat cultures drawn on 07/18 (one from port to ensure no line infection) -Given ongoing possibly worsening confusion today, repeat blood cultures on 07/22 -Start lock therapy today with gentamicin while awaiting port removal -Wound care for open wounds-using silver dressings (2) Septic shock: Source bacteremia as above. Likely element of adrenal insufficiency as well as hypovolemia. Blood pressures are much improved today -Now weaned off Levophed -Weaning down on IV hydrocortisone-will now discontinue -Now off of p.o. fludrocortisone which was started upon admission by promotions assistant sales marketing -Continue antibiotics as above -Continue Cerna catheter for another day until able to get up and move without as much tachycardia or hypoxia (3) Right breast cancer with T3 tumor, >5 cm in greatest dimension: ER positive HER2/jose negative. Currently undergoing neoadjuvant chemotherapy under Dr Spencer. No stage from other notes. - Will follow up as an outpatient with [facility]. -I have discussed her condition with her primary oncologist -Continue to encourage p.o. intake -May need enteral feedings if continues to not eat much (4) Atrial fibrillation with rapid ventricular response: Improved rate with IV fluids suggestive of dehydrated state in ER. -Initially held apixaban from home but restarted given that previous thrombocytopenia and anemia are now improved. However now will hold as above for port removal -Continue to hold home bisoprolol while blood pressures are soft Continue home digoxin Continue to follow on telemetry Appreciate cardiology consultation (5) Normocytic anemia: Concerning drop in ER from Hgb 10.7 [07/05] to 8.1, then 6.8. Likely secondary to chemotherapy bone marrow suppression but difficult to rule out GI bleed from unreliable history from patient. - S/p 2 units PRBCs on 07/16, hemoglobin has since remained stable around 9 since then Hemoccult stool pending still as she is constipated (6) Thrombocytopenia: Suspect secondary to bone marrow suppression with chemotherapy. Platelets now improved - Monitor CBC with AM labs. (7) Hypoxia: Aim O2 sats > 94%. - Oxygen supplement as needed Continues, possibly secondary to atelectasis versus pleural effusion seen on chest x-ray from hypoalbuminemia (8) Dementia: With acute metabolic encephalopathy Perhaps restarting her gabapentin 2 days ago has worsened her confusion-we will hold this Repeat UA, blood cultures, Covid test given increased sedation and confusion today - Frequent reorientation. -Supportive care (9) Aortic stenosis: Notable recent echocardiogram with moderate-severe aortic stenosis. Follows with cardiology (Dr Koenig). - Cardiology consulted - Aim to keep SBP slightly higher to avoid low perfusion. - Monitor Not likely a candidate for TAVR given her cancer (10) Pulmonary embolism on left: Chronic left-sided thin linear filling defect in a segmental branch seen on CTA chest on admission Continue apixaban but holding for now as above for port removal Should continue anticoagulation indefinitely given her cancer (11) Restless legs syndrome: Continue Mirapex (12) Hypothyroidism: Continue home levothyroxine TSH here normal at 1.56 (13) DVT prophylaxis: Apixaban - SCDs Disposition-continued stay in PCU until port removal on Sunday. PT/OT consultations were placed-recommend rehab She lives alone and her brother and his check on her on a daily basis, however she has significant cognitive impairment and a history of multiple falls. I do not think she is safe to go home alone at this time Brother Ramón and his are updated periodically by phone Admission and Anticipated Discharge Date Admission Date: July 16, 2020 Subjective Patient continues to be confused, and has barely eaten anything all day. She is unable to tell me where she is or what her brother's name is, but after I remind her of her brother's name she recognizes it. Denies pain anywhere. Denies shortness of breath. Review of Systems Review of Systems: All systems reviewed & are unremarkable except as noted in HPI & below Physical Exam Constitutional: WD/WN, vitals as above Eyes: + anicteric sclerae Neck: trachea midline, no thyromegaly Respiratory: normal respiratory effort, lungs clear to auscultation Cardiovascular: Rate/Rhythm: regular rate and + irregularly irregular Heart Sounds: + murmur (3/6 AMOS at the RUSB) Chest (Breasts): Chest: normal inspection of chest and + vascular access device or port (Port in place without any surrounding erythema) Gastrointestinal (Abdomen): normal bowel sounds, soft, nontender, no hepatosplenomegaly Musculoskeletal: Extremities: extremities normal to inspection; no cyanosis and no clubbing Skin: no rashes, warm and dry + wound (Bilat posterior shoulders with OPTi foam in place over wounds) Neurologic: moves all extremities and awake; no focal motor deficits Psychiatric: Orientation: alert, oriented to person and cooperative Lymphatic: no lymphedema Results & Data Results & Data ([facility]) Vital Signs (Past 12 Hours) Vital Signs Temp Pulse Resp BP Pulse Ox 07/22/20 16:51 66 07/22/20 16:30 79 07/22/20 15:18 76 24 126/63 07/22/20 13:18 84 33 H 123/78 94 07/22/20 11:18 81 28 H 122/65 95 07/22/20 07:57 64 07/22/20 07:30 36.3 C L 07/22/20 07:18 73 28 H 107/68 94 Laboratory Results 07/22/20 07/22/20 07/22/20 Range/Units 17:50 17:50 17:50 WBC (4.8-10.8) K/uL RBC (4.2-5.4) M/uL Hgb (12.0-16.0) g/dL Hct (37-47) % MCV (80-100) fL MCH (25-34) pg MCHC (32-36) g/dL RDW Std Deviation (36.4-46.3) fL RDW Coeff of Demetra (11.5-14.5) % Plt Count (130-400) K/uL MPV (7.4-10.4) fL Immature Gran % (Auto) % Neut % (Auto) % Lymph % (Auto) % [place] % (Auto) % Eos % (Auto) % Baso % (Auto) % Neut # (Auto) (1.4-6.5) K/uL Lymph # (Auto) (1.2-3.4) K/uL [place] # (Auto) (0.11-0.59) K/uL Eos # (Auto) (0-0.5) K/uL Baso # (Auto) (0-0.2) K/uL Immature Gran # (Auto) (0.00-0.02) K/uL Absolute Nucleated RBC (0-0) K/uL Nucleated RBC % (auto) % Polychromasia Anisocytosis Tear Drop Cells Echinocytes Sodium (136-145) mmol/L Potassium (3.5-5.1) mmol/L Chloride (98-107) mmol/L Carbon Dioxide (21-32) mmol/L Anion Gap (3-11) BUN (7-18) mg/dl Creatinine (0.6-1.2) mg/dl Est Cr Clr Drug Dosing ml/min Est GFR ( Amer) Est GFR (Non-Af Amer) BUN/Creatinine Ratio (10-20) Glucose (70-99) mg/dl Calcium (8.5-10.1) mg/dl Urine Color Pending Urine Appearance Pending Urine pH Pending Ur Specific [place] Pending Urine Protein Pending Urine Glucose (UA) Pending Urine Ketones Pending Urine Blood Pending Urine Nitrite Pending Urine Bilirubin Pending Urine Urobilinogen Pending Ur Leukocyte Esterase Pending COVID-19 Eval Order CovFluRsv at [facility] COVID-19 PCR Pending Influenza Type A (PCR) Pending Influenza Type B (PCR) Pending RSV (RT-PCR) Pending 07/22/20 07/22/20 Range/Units 04:37 04:37 WBC 14.21 H (4.8-10.8) K/uL RBC 3.05 L (4.2-5.4) M/uL Hgb 9.7 L (12.0-16.0) g/dL Hct 29.7 L (37-47) % MCV 97.4 (80-100) fL MCH 31.8 (25-34) pg MCHC 32.7 (32-36) g/dL RDW Std Deviation 68.8 H (36.4-46.3) fL RDW Coeff of Demetra 20.1 H (11.5-14.5) % Plt Count 184 (130-400) K/uL MPV 11.3 H (7.4-10.4) fL Immature Gran % (Auto) 3.8 % Neut % (Auto) 83.6 % Lymph % (Auto) 9.1 % [place] % (Auto) 3.4 % Eos % (Auto) 0.0 % Baso % (Auto) 0.1 % Neut # (Auto) 11.87 H (1.4-6.5) K/uL Lymph # (Auto) 1.29 (1.2-3.4) K/uL [place] # (Auto) 0.49 (0.11-0.59) K/uL Eos # (Auto) 0.00 (0-0.5) K/uL Baso # (Auto) 0.02 (0-0.2) K/uL Immature Gran # (Auto) 0.54 H (0.00-0.02) K/uL Absolute Nucleated RBC 0.08 H (0-0) K/uL Nucleated RBC % (auto) 0.6 % Polychromasia 1+ Anisocytosis Present Tear Drop Cells 1+ Echinocytes 1+ Sodium 143 (136-145) mmol/L Potassium 3.9 (3.5-5.1) mmol/L Chloride 111 H (98-107) mmol/L Carbon Dioxide 30 (21-32) mmol/L Anion Gap 2.0 L (3-11) BUN 22 H (7-18) mg/dl Creatinine 0.67 (0.6-1.2) mg/dl Est Cr Clr Drug Dosing 74.3 ml/min Est GFR ( Amer) 103.2 Est GFR (Non-Af Amer) 89.1 BUN/Creatinine Ratio 33.6 H (10-20) Glucose 107 H (70-99) mg/dl Calcium 8.7 (8.5-10.1) mg/dl Urine Color Urine Appearance Urine pH Ur Specific [place] Urine Protein Urine Glucose (UA) Urine Ketones Urine Blood Urine Nitrite Urine Bilirubin Urine Urobilinogen Ur Leukocyte Esterase COVID-19 Eval Order COVID-19 PCR Influenza Type A (PCR) Influenza Type B (PCR) RSV (RT-PCR) PG Care Time/CCT Total # of Minutes Spent Total Time Spent with Patient: Total time spent is greater than 50% in coordination of care (as documented) at patient's floor/unit and/or counseling patient: Coding Level of Care Code 40949 Subseq Hosp Care Lvl 3 Diagnoses Bacteremia R78.81 Septic shock A41.9; R65.21 Right breast cancer with T3 tumor, >5 cm in greatest dimension C50.911 Atrial fibrillation with rapid ventricular response I48.91 Normocytic anemia D64.9 Thrombocytopenia D69.6 Hypoxia R09.02 Dementia F03.90 Aortic stenosis I35.0 Pulmonary embolism on left I26.99 Restless legs syndrome G25.81 Hypothyroidism E03.9 DVT prophylaxis Z29.9
[2020-07-22 18:46] LABS: Appearance Urine Clear (Clear); Bacteria Urine Automated Negative (Negative); Bilirubin Urine Negative (Negative); Blood Urine 2+ (Negative); Color Urine Yellow; Epithelial Cell Urine Auto 20-30 /lpf (0-5); Glucose Urine UA Negative (Negative); Ketones Urine 1+ (Negative); Leukocyte Esterase Urine Negative (Negative); Nitrite Urine Negative (Negative); Protein Urine 1+ (Negative); Specific Gravity Urine 1.027 (1.000-1.030); Urobilinogen Urine Negative (Negative)
[2020-07-22 19:21] LABS: Influenza A virus by PCR Negative (Neg); Influenza B virus by PCR Negative (Neg); RSV by PCR Negative (Neg); SARS CoV2 RNA(COVID-19) InHosp NEGATIVE (Negative)
[2020-07-22 19:41] LABS: Calcium Oxalate Crystals Urine Present (None Prsent)
[2020-07-22] MEDS: MONTELUKAST SODIUM 10 MG TABLET PO SCH (20:23)
[2020-07-22] MEDS: ATORVASTATIN 40 MG TAB PO SCH (20:23)
[2020-07-22] MEDS: PRAMIPEXOLE DIHYDROCHLO 0.5 MG TAB PO SCH (20:23)
[2020-07-23 05:25] LABS: Basophils # (auto) 0.02 K/uL (0-0.2); Basophils % (auto) 0.1 %; Hematocrit (blood only) 33.3 % (37-47); Hemoglobin 10.7 g/dL (12.0-16.0); Immature Granulocytes # (auto) 0.57 K/uL (0.00-0.02); Immature Granulocytes % (auto) 3.7 %; Lymphocytes # (auto) 0.98 K/uL (1.2-3.4); Lymphocytes % (auto) 6.4 %; Mean Corpuscular Hemoglobin 31.5 pg (25-34); Mean Corpuscular Hgb Conc 32.1 g/dL (32-36); Mean Corpuscular Volume 97.9 fL (80-100); Mean Platelet Volume 11.1 fL (7.4-10.4); Monocytes # (auto) 0.58 K/uL (0.11-0.59); Monocytes % (auto) 3.8 %; Neutrophils # (auto) 13.27 K/uL (1.4-6.5); Nucleated RBC # (auto) 0.07 K/uL (0-0); Nucleated RBC % (auto) 0.4 %; Platelet Count 204 K/uL (130-400); RDW Coefficient of Variation 20.6 % (11.5-14.5); RDW Standard Deviation 70.1 fL (36.4-46.3); White Blood Count 15.42 K/uL (4.8-10.8)
[2020-07-23] MEDS: LEVOTHYROXINE SODIUM 100 MCG TABLET PO SCH (05:44)
[2020-07-23] MEDS: CEFEPIME 2,000 MG in SYRINGE 0 ML IV SCH ×3 (05:44→21:24)
[2020-07-23 05:50] LABS: Anisocytosis Present; Polychromasia 1+
[2020-07-23 05:53] LABS: Albumin Level 2.2 gm/dl (3.4-5.0); Calcium 8.7 mg/dl (8.5-10.1); Creatinine Clr Calc Pharmacy 85.8 ml/min; Est GFR (African American) 108.9; Est GFR (Non-African American) 93.9; Magnesium 2.1 mg/dl (1.8-2.4); Potassium 3.5 mmol/L (3.5-5.1)
[2020-07-23 05:54] LABS: Albumin Globulin Ratio 0.8 (0.9-2); Bilirubin,Total 0.6 mg/dl (0.2-1); Globulin 2.6 gm/dl (2.5-4.0); Total Protein 4.8 gm/dl (6.4-8.2)
[2020-07-23] MEDS: FLUTICASONE/VILANTEROL 100/25MCG 14 PUFFS/INHALER INH SCH (07:56)
[2020-07-23] MEDS: DULoxetine HCL 60 MG CAP PO SCH ×2 (07:56→20:14)
[2020-07-23] MEDS: FAMOTIDINE 20 MG TAB PO SCH ×2 (07:57→20:15)
[2020-07-23] MEDS: PARoxetine HCL 20 MG TAB PO SCH (07:57)
[2020-07-23] MEDS: POLYETHYLENE (MIRALAX) 17 GM PACK PO SCH (07:57)
[2020-07-23] MEDS: ASPIRIN 81 MG ECTAB PO SCH (07:57)
[2020-07-23] MEDS: MAGNESIUM OXIDE 400 MG TAB PO SCH (07:57)
[2020-07-23] MEDS: DOCUSATE SODIUM/SENNA 50/8.6MG TAB PO SCH ×2 (07:58→20:17)
[2020-07-23] MEDS: PANTOprazole 40 MG TAB PO SCH ×2 (07:58→20:15)
[2020-07-23] MEDS: DIGOXIN 0.25 MG TAB PO SCH (16:41)
--- NOTE | 2020-07-23 18:49 | Hospitalist Progress Note ---
Date of Service July 23, 2020 Assessment & Plan (1) Bacteremia: 08/23 bottles of blood cultures from 07/16 growing pansensitive Pseudomonas aeruginosa Repeat blood cultures from 07/18 remain no growth to date UNclear source as her urine from 07/16 has no indication of infection, and she is not neutropenic, so GI translocation would be less likely. CT of the chest without pneumonia CT abdomen/pelvis without evidence of inflammation or infection However, she does have multiple wounds on posterior shoulders left elbow and right leg-posterior shoulder wounds do seem more open and moist with mild surrounding erythema-could be possible source? Port does not appear infected, but certainly could be Wound culture from left posterior shoulder growing Adriana Appreciate [facility] infectious disease consultation with recommendations as follows: "Given no clear source of infection, CLABSI is on top of the list of differential. - Remove mediport to prevent recurrent/relapsed infection - May continue cefepime as inpatient - When ready for discharge, switch cefepime to cipro 500 mg po bid to complete total 7 days from 07/20/20 - If for any reason, line salvage is sought, I recommend to po Cipro 500 mg po bid w/ antibiotic lock therapy w/ Cipro in mediport for total 14 days from negative blood cultures (please, contact pharmacy for dosing and dwell time for abx lock therapy). However, this increases the risk of relapsed infection." I discussed these recommendations with the patient's brother who is her decision-maker as well as with the surgical team. I also discussed her care with her oncologist, Dr. Spencer. Plan to hold Eliquis for 2 to 3 days and remove port on Sunday We will place PICC line after that for her last round of chemotherapy. -Continue cefepime for now and then can switch to p.o. Cipro as above to complete 7 more days after discharge -Follow repeat cultures drawn on 07/18 (one from port to ensure no line infection) -Given ongoing confusion, repeat blood cultures drawn on 07/22-NGTD -Started lock therapy 07/22 with gentamicin while awaiting port removal -Wound care for open wounds-using silver dressings (2) Septic shock: Source bacteremia as above. Likely element of adrenal insufficiency as well as hypovolemia. Blood pressures are much improved today -Now weaned off Levophed -Weaned off IV hydrocortisone -Now off of p.o. fludrocortisone which was started upon admission by mold cutting machine operator -Continue antibiotics as above -Continue Cerna catheter until able to get up and move without as much tachycardia or hypoxia (3) Right breast cancer with T3 tumor, >5 cm in greatest dimension: ER positive HER2/jose negative. Currently undergoing neoadjuvant chemotherapy under Dr Spencer. No stage from other notes. - Will follow up as an outpatient with [facility]. -I have discussed her condition with her primary oncologist -Continue to encourage p.o. intake -May need enteral feedings if continues to not eat much (4) Atrial fibrillation with rapid ventricular response: Improved rate with IV fluids suggestive of dehydrated state in ER. -Initially held apixaban from home but restarted given that previous thrombocytopenia and anemia are now improved. However now on hold as above for port removal -Continue to hold home bisoprolol while blood pressures are soft Continue home digoxin Continue to follow on telemetry Appreciate cardiology consultation (5) Normocytic anemia: Concerning drop in ER from Hgb 10.7 [07/05] to 8.1, then 6.8. Likely secondary to chemotherapy bone marrow suppression but difficult to rule out GI bleed from unreliable history from patient. - S/p 2 units PRBCs on 07/16, hemoglobin has since remained stable at 10.7 Hemoccult stool pending still as she is constipated (6) Thrombocytopenia: Suspect secondary to bone marrow suppression with chemotherapy. Platelets now improved - Monitor CBC with AM labs. (7) Hypoxia: Aim O2 sats > 94%. Continues - Oxygen supplement as needed Continues, possibly secondary to atelectasis versus pleural effusion seen on chest x-ray from hypoalbuminemia (8) Dementia: With acute metabolic encephalopathy-improved slightly today after disc ontinuing gabapentin Remains afebrile, no renal failure Repeat UA negative for infection, repeated blood cultures-no growth to date Covid test negative again - Frequent reorientation. -Supportive care (9) Aortic stenosis: Notable recent echocardiogram with moderate-severe aortic stenosis. Follows with cardiology (Dr Koenig). - Cardiology consulted - Aim to keep SBP slightly higher to avoid low perfusion. - Monitor Not likely a candidate for TAVR given her cancer (10) Pulmonary embolism on left: Chronic left-sided thin linear filling defect in a segmental branch seen on CTA chest on admission Continue apixaban but holding for now as above for port removal Should continue anticoagulation indefinitely given her cancer (11) Restless legs syndrome: Continue Mirapex (12) Hypothyroidism: Continue home levothyroxine TSH here normal at 1.56 (13) DVT prophylaxis: Apixaban - SCDs Disposition-continued stay in PCU until port removal on Sunday. PT/OT consultations were placed-recommend rehab She lives alone and her brother and his check on her on a daily basis, however she has significant cognitive impairment and a history of multiple falls. I do not think she is safe to go home alone at this time Admission and Anticipated Discharge Date Admission Date: July 16, 2020 Subjective Pt denies any pain. Seems a little more energetic today. Reports she didn't eat much. Denies shortness of breath but remains on oxygen. Patient tried to stand with physical therapy today and could not. Her heart rate went to the 140s and her pulse ox dropped to 86% Review of Systems Review of Systems: All systems reviewed & are unremarkable except as noted in HPI & below Physical Exam Constitutional: + frail appearing; not in distress Eyes: + anicteric sclerae Neck: trachea midline, no thyromegaly Respiratory: normal respiratory effort Auscultation: + crackles (bibasilar); no wheezes Cardiovascular: Rate/Rhythm: regular rate and + irregularly irregular Heart Sounds: + murmur (3/6 AMOS at the RUSB) Chest (Breasts): Chest: normal inspection of chest and + vascular access device or port (Port in place without any surrounding erythema) Gastrointestinal (Abdomen): normal bowel sounds, soft, nontender, no hepatosplenomegaly Musculoskeletal: Extremities: extremities normal to inspection; no cyanosis and no clubbing Skin: no rashes, warm and dry + wound (Bilat posterior shoulders with OPTi foam in place over wounds) Neurologic: moves all extremities and awake; no focal motor deficits Psychiatric: Orientation: alert, oriented to person and cooperative Lymphatic: no lymphedema Results & Data Results & Data ([facility]) Vital Signs (Past 12 Hours) Vital Signs Temp Pulse Pulse Resp BP Pulse Ox 07/23/20 16:41 82 07/23/20 15:02 36.6 C 91 H 22 131/78 92 07/23/20 11:30 37.3 C 86 22 121/65 92 07/23/20 08:00 36.7 C 84 30 H 114/65 92 Laboratory Results 07/23/20 07/23/20 07/22/20 Range/Units 04:54 04:54 17:50 WBC 15.42 H (4.8-10.8) K/uL RBC 3.40 L (4.2-5.4) M/uL Hgb 10.7 L (12.0-16.0) g/dL Hct 33.3 L (37-47) % MCV 97.9 (80-100) fL MCH 31.5 (25-34) pg MCHC 32.1 (32-36) g/dL RDW Std Deviation 70.1 H (36.4-46.3) fL RDW Coeff of Demetra 20.6 H (11.5-14.5) % Plt Count 204 (130-400) K/uL MPV 11.1 H (7.4-10.4) fL Immature Gran % (Auto) 3.7 % Neut % (Auto) 86.0 % Lymph % (Auto) 6.4 % [place] % (Auto) 3.8 % Eos % (Auto) 0.0 % Baso % (Auto) 0.1 % Neut # (Auto) 13.27 H (1.4-6.5) K/uL Lymph # (Auto) 0.98 L (1.2-3.4) K/uL [place] # (Auto) 0.58 (0.11-0.59) K/uL Eos # (Auto) 0.00 (0-0.5) K/uL Baso # (Auto) 0.02 (0-0.2) K/uL Immature Gran # (Auto) 0.57 H (0.00-0.02) K/uL Absolute Nucleated RBC 0.07 H (0-0) K/uL Nucleated RBC % (auto) 0.4 % Polychromasia 1+ Anisocytosis Present Sodium 143 (136-145) mmol/L Potassium 3.5 (3.5-5.1) mmol/L Chloride 109 H (98-107) mmol/L Carbon Dioxide 32 (21-32) mmol/L Anion Gap 2.0 L (3-11) BUN 20 H (7-18) mg/dl Creatinine 0.57 L (0.6-1.2) mg/dl Est Cr Clr Drug Dosing 85.8 ml/min Est GFR ( Amer) 108.9 Est GFR (Non-Af Amer) 93.9 BUN/Creatinine Ratio 35.0 H (10-20) Glucose 92 (70-99) mg/dl Calcium 8.7 (8.5-10.1) mg/dl Magnesium 2.1 (1.8-2.4) mg/dl Total Bilirubin 0.6 (0.2-1) mg/dl AST 27 (15-37) U/L ALT 22 (12-78) U/L Alkaline Phosphatase 124 H (45-117) U/L Total Protein 4.8 L (6.4-8.2) gm/dl Albumin 2.2 L (3.4-5.0) gm/dl Globulin 2.6 (2.5-4.0) gm/dl Albumin/Globulin Ratio 0.8 L (0.9-2) Urine Color Urine Appearance (Clear) Urine pH (4.5-7.5) Ur Specific [place] (1.000-1.030) Urine Protein (Negative) Urine Glucose (UA) (Negative) Urine Ketones (Negative) Urine Blood (Negative) Urine Nitrite (Negative) Urine Bilirubin (Negative) Urine Urobilinogen (Negative) Ur Leukocyte Esterase (Negative) Urine WBC (Auto) (0-5) /hpf Urine RBC (Auto) (0-4) /hpf U Hyaline Cast (Auto) (0-5) /lpf U Epithel Cells (Auto) (0-5) /lpf Urine Bacteria (Auto) (Negative) Calcium Oxalate Crystal (None Prsent) Granular Casts (0) /lpf COVID-19 PCR NEGATIVE (Negative) Influenza Type A (PCR) Negative (Neg) Influenza Type B (PCR) Negative (Neg) RSV (RT-PCR) Negative (Neg) 07/22/20 Range/Units 17:50 WBC (4.8-10.8) K/uL RBC (4.2-5.4) M/uL Hgb (12.0-16.0) g/dL Hct (37-47) % MCV (80-100) fL MCH (25-34) pg MCHC (32-36) g/dL RDW Std Deviation (36.4-46.3) fL RDW Coeff of Demetra (11.5-14.5) % Plt Count (130-400) K/uL MPV (7.4-10.4) fL Immature Gran % (Auto) % Neut % (Auto) % Lymph % (Auto) % [place] % (Auto) % Eos % (Auto) % Baso % (Auto) % Neut # (Auto) (1.4-6.5) K/uL Lymph # (Auto) (1.2-3.4) K/uL [place] # (Auto) (0.11-0.59) K/uL Eos # (Auto) (0-0.5) K/uL Baso # (Auto) (0-0.2) K/uL Immature Gran # (Auto) (0.00-0.02) K/uL Absolute Nucleated RBC (0-0) K/uL Nucleated RBC % (auto) % Polychromasia Anisocytosis Sodium (136-145) mmol/L Potassium (3.5-5.1) mmol/L Chloride (98-107) mmol/L Carbon Dioxide (21-32) mmol/L Anion Gap (3-11) BUN (7-18) mg/dl Creatinine (0.6-1.2) mg/dl Est Cr Clr Drug Dosing ml/min Est GFR ( Amer) Est GFR (Non-Af Amer) BUN/Creatinine Ratio (10-20) Glucose (70-99) mg/dl Calcium (8.5-10.1) mg/dl Magnesium (1.8-2.4) mg/dl Total Bilirubin (0.2-1) mg/dl AST (15-37) U/L ALT (12-78) U/L Alkaline Phosphatase (45-117) U/L Total Protein (6.4-8.2) gm/dl Albumin (3.4-5.0) gm/dl Globulin (2.5-4.0) gm/dl Albumin/Globulin Ratio (0.9-2) Urine Color Yellow Urine Appearance Clear (Clear) Urine pH 5.0 (4.5-7.5) Ur Specific [place] 1.027 (1.000-1.030) Urine Protein 1+ H (Negative) Urine Glucose (UA) Negative (Negative) Urine Ketones 1+ H (Negative) Urine Blood 2+ H (Negative) Urine Nitrite Negative (Negative) Urine Bilirubin Negative (Negative) Urine Urobilinogen Negative (Negative) Ur Leukocyte Esterase Negative (Negative) Urine WBC (Auto) 1-5 (0-5) /hpf Urine RBC (Auto) 10-30 H (0-4) /hpf U Hyaline Cast (Auto) 1-5 (0-5) /lpf U Epithel Cells (Auto) 20-30 H (0-5) /lpf Urine Bacteria (Auto) Negative (Negative) Calcium Oxalate Crystal Present A (None Prsent) Granular Casts 1-5 H (0) /lpf COVID-19 PCR (Negative) Influenza Type A (PCR) (Neg) Influenza Type B (PCR) (Neg) RSV (RT-PCR) (Neg) PG Care Time/CCT Total # of Minutes Spent Total Time Spent with Patient: Total time spent is greater than 50% in coordination of care (as documented) at patient's floor/unit and/or counseling patient: Coding Level of Care Code 62488 Subseq Hosp Care Lvl 2 Diagnoses Bacteremia R78.81 Septic shock A41.9; R65.21 Right breast cancer with T3 tumor, >5 cm in greatest dimension C50.911 Atrial fibrillation with rapid ventricular response I48.91 Normocytic anemia D64.9 Thrombocytopenia D69.6 Hypoxia R09.02 Dementia F03.90 Aortic stenosis I35.0 Pulmonary embolism on left I26.99 Restless legs syndrome G25.81 Hypothyroidism E03.9 DVT prophylaxis Z29.9
[2020-07-23] MEDS: ATORVASTATIN 40 MG TAB PO SCH (20:14)
[2020-07-23] MEDS: PRAMIPEXOLE DIHYDROCHLO 0.5 MG TAB PO SCH (20:16)
[2020-07-23] MEDS: MONTELUKAST SODIUM 10 MG TABLET PO SCH (20:17)
[2020-07-24] MEDS: LEVOTHYROXINE SODIUM 100 MCG TABLET PO SCH (04:32)
[2020-07-24] MEDS: CEFEPIME 2,000 MG in SYRINGE 0 ML IV SCH ×3 (04:38→21:14)
[2020-07-24] MEDS: MAGNESIUM OXIDE 400 MG TAB PO SCH (09:00)
[2020-07-24] MEDS: FAMOTIDINE 20 MG TAB PO SCH ×2 (09:00→21:15)
[2020-07-24] MEDS: DULoxetine HCL 60 MG CAP PO SCH ×2 (09:00→21:16)
[2020-07-24] MEDS: PARoxetine HCL 20 MG TAB PO SCH (09:00)
[2020-07-24] MEDS: POLYETHYLENE (MIRALAX) 17 GM PACK PO SCH (09:00)
[2020-07-24] MEDS: ASPIRIN 81 MG ECTAB PO SCH (09:00)
[2020-07-24] MEDS: DOCUSATE SODIUM/SENNA 50/8.6MG TAB PO SCH ×2 (09:00→21:14)
[2020-07-24] MEDS: FLUTICASONE/VILANTEROL 100/25MCG 14 PUFFS/INHALER INH SCH (09:00)
[2020-07-24] MEDS: PANTOprazole 40 MG TAB PO SCH ×2 (09:00→21:15)
[2020-07-24] MEDS: Magic Mouthwash 240mL PO SCH ×2 (14:30→20:57)
[2020-07-24] MEDS ORDERED: ONDANSETRON INJ 2 MG/ML 2 ML VIAL ONE (14:58)
[2020-07-24] MEDS: ONDANSETRON INJ 2 MG/ML 2 ML VIAL IV PRN (15:00)
[2020-07-24] MEDS: DIGOXIN 0.25 MG TAB PO SCH (16:00)
[2020-07-24] MEDS: ATORVASTATIN 40 MG TAB PO SCH (20:55)
[2020-07-24] MEDS: PRAMIPEXOLE DIHYDROCHLO 0.5 MG TAB PO SCH (20:55)
[2020-07-24] MEDS: MONTELUKAST SODIUM 10 MG TABLET PO SCH (20:55)
[2020-07-24] MEDS ORDERED: OLANZAPINE 2.5 MG TAB PO PRN (21:40)
[2020-07-25 05:31] LABS: Basophils # (auto) 0.02 K/uL (0-0.2); Basophils % (auto) 0.1 %; Hematocrit (blood only) 32.9 % (37-47); Hemoglobin 10.7 g/dL (12.0-16.0); Immature Granulocytes # (auto) 0.25 K/uL (0.00-0.02); Immature Granulocytes % (auto) 1.8 %; Lymphocytes # (auto) 0.94 K/uL (1.2-3.4); Lymphocytes % (auto) 6.8 %; Mean Corpuscular Hemoglobin 31.7 pg (25-34); Mean Corpuscular Hgb Conc 32.5 g/dL (32-36); Mean Corpuscular Volume 97.3 fL (80-100); Mean Platelet Volume 10.9 fL (7.4-10.4); Monocytes # (auto) 0.54 K/uL (0.11-0.59); Monocytes % (auto) 3.9 %; Neutrophils # (auto) 12.15 K/uL (1.4-6.5); Neutrophils % (auto) 87.4 %; Nucleated RBC # (auto) 0.03 K/uL (0-0); Nucleated RBC % (auto) 0.2 %; Platelet Count 191 K/uL (130-400); RDW Coefficient of Variation 20.2 % (11.5-14.5); RDW Standard Deviation 70.8 fL (36.4-46.3); Red Blood Count 3.38 M/uL (4.2-5.4)
[2020-07-25] MEDS: LEVOTHYROXINE SODIUM 100 MCG TABLET PO SCH (05:43)
[2020-07-25] MEDS: CEFEPIME 2,000 MG in SYRINGE 0 ML IV SCH ×3 (05:43→22:09)
[2020-07-25 05:58] LABS: BUN Creatinine Ratio 25.1 (10-20); Calcium 8.6 mg/dl (8.5-10.1); Creatinine Clr Calc Pharmacy 96.2 ml/min; Est GFR (African American) 112.9; Est GFR (Non-African American) 97.4; Magnesium 2.1 mg/dl (1.8-2.4); Potassium 2.9 mmol/L (3.5-5.1)
--- NOTE | 2020-07-25 06:00 | Surgery Progress Note ---
Date of Service July 25, 2020 Assessment & Plan (1) Bacteremia: -plan for removal of A-port tomorrow by Dr. Clark -verified with RN that eliquis is on hold--most recent dose was on 07/21/20 -will make npo after midnight Admission and Anticipated Discharge Date Admission Date: July 16, 2020 Subjective Pt. doing well. No complaints this am. Discussed with RN-- no fevers. Periods of confusion noted. Physical Exam Constitutional: no acute distress Neurologic: moves all extremities Results & Data ([facility]) Vital Signs (Past 12 Hours) Vital Signs Temp Pulse Resp BP Pulse Ox 07/25/20 02:50 36.7 C 102 H 28 H 109/71 93 07/25/20 01:18 84 26 H 108/77 93 07/25/20 00:05 109 H 07/24/20 23:19 36.5 C 100 H 32 H 121/79 93 07/24/20 20:51 36.5 C 92 H 30 H 133/73 92 07/24/20 19:00 79 PG Care Time/CCT Total # of Minutes Spent Total Time Spent with Patient: Total time spent is greater than 50% in coordination of care (as documented) at patient's floor/unit and/or counseling patient: Coding Level of Care Code 63257 Subseq Hosp Care Lvl 1 Diagnoses Bacteremia R78.81
[2020-07-25 06:17] LABS: Polychromasia 1+
[2020-07-25 06:19] LABS: Anisocytosis Present
[2020-07-25] MEDS ORDERED: POTASSIUM CHLORIDE CRTAB 20 MEQ TABCR PO STA (07:23)
[2020-07-25] MEDS: DULoxetine HCL 60 MG CAP PO SCH ×2 (08:02→20:30)
[2020-07-25] MEDS: PANTOprazole 40 MG TAB PO SCH ×2 (08:02→20:33)
[2020-07-25] MEDS: FLUTICASONE/VILANTEROL 100/25MCG 14 PUFFS/INHALER INH SCH (08:02)
[2020-07-25] MEDS: FAMOTIDINE 20 MG TAB PO SCH ×2 (08:03→20:32)
[2020-07-25] MEDS: MAGNESIUM OXIDE 400 MG TAB PO SCH (08:03)
[2020-07-25] MEDS: PARoxetine HCL 20 MG TAB PO SCH (08:05)
[2020-07-25] MEDS: ASPIRIN 81 MG ECTAB PO SCH (08:05)
[2020-07-25] MEDS: POTASSIUM CHLORIDE / WTR 10 MEQ/100 ML PLCT IV SCH ×4 (08:08→12:19)
[2020-07-25] MEDS: POTASSIUM CHLORIDE CRTAB 20 MEQ TABCR PO SCH ×2 (08:09→21:22)
[2020-07-25] MEDS: Magic Mouthwash 240mL PO SCH ×3 (08:20→20:29)
[2020-07-25] MEDS: POLYETHYLENE (MIRALAX) 17 GM PACK PO SCH (08:21)
[2020-07-25] MEDS ORDERED: LORazepam 0.5 MG/1 ML VIAL IV STA (09:02)
[2020-07-25] MEDS: DOCUSATE SODIUM/SENNA 50/8.6MG TAB PO SCH ×2 (09:23→20:32)
[2020-07-25] MEDS: DIGOXIN 0.25 MG TAB PO SCH (16:41)
--- NOTE | 2020-07-25 19:24 | Hospitalist Progress Note ---
Date of Service July 25, 2020 Assessment & Plan (1) Bacteremia: 1/ bottles of blood cultures from 07/16 growing pansensitive Pseudomonas aeruginosa Repeat blood cultures from 07/18 and 07/22 remain no growth to date Unclear source as her urine from 07/16 has no indication of infection, and she is not neutropenic, so GI translocation would be less likely. CT of the chest without pneumonia CT abdomen/pelvis without evidence of inflammation or infection However, she does have multiple wounds on posterior shoulders left elbow and right leg-posterior shoulder wounds do seem more open and moist with mild surrounding erythema-could be possible source? Port does not appear infected, but certainly could be Wound culture from left posterior shoulder growing Adriana Appreciate [facility] infectious disease consultation with recommendations as follows: "Given no clear source of infection, CLABSI is on top of the list of differential. - Remove mediport to prevent recurrent/relapsed infection - May continue cefepime as inpatient - When ready for discharge, switch cefepime to cipro 500 mg po bid to complete total 7 days from 07/20/20 - If for any reason, line salvage is sought, I recommend to po Cipro 500 mg po bid w/ antibiotic lock therapy w/ Cipro in mediport for total 14 days from negative blood cultures (please, contact pharmacy for dosing and dwell time for abx lock therapy). However, this increases the risk of relapsed infection." I discussed these recommendations with the patient's brother who is her decision-maker as well as with the surgical team. I also discussed her care with her oncologist, Dr. Spencer. Plan to hold Eliquis for 2 to 3 days and remove port on Sunday We will place PICC line after that for her last round of chemotherapy. -Continue cefepime and then can switch to p.o. Cipro as above to complete 7 more days after discharge -Continue to follow repeat cultures to ensure stability -Continue lock therapy of the port with gentamicin until port is removed -Wound care for open wounds-using silver dressings (2) Septic shock: Source bacteremia as above. Likely element of adrenal insufficiency as well as hypovolemia. Was initially on Levophed, IV hydrocortisone, and p.o. fludrocortisone and has since been weaned off all of these Blood pressures have been normal for several days Cerna catheter remains in place due to significant weakness and to measure urine output (3) Right breast cancer with T3 tumor, >5 cm in greatest dimension: ER positive HER2/jose negative. Currently undergoing neoadjuvant chemother apy under Dr Spencre. No stage from other notes. - Will follow up as an outpatient with [facility]. -I have discussed her condition with her primary oncologist -Continue to encourage p.o. intake -Has very poor p.o. intake (4) Atrial fibrillation with rapid ventricular response: Improved rate with IV fluids suggestive of dehydrated state in ER. -Initially held apixaban from home but was restarted after thrombocytopenia and anemia improved. -Apixaban now on hold as above for port removal -Continue to hold home bisoprolol while blood pressures are soft -Continue home digoxin -Continue to follow on telemetry -Appreciate cardiology consultation (5) Normocytic anemia: Concerning drop in ER from Hgb 10.7 [07/05] to 8.1, then 6.8. Likely secondary to chemotherapy bone marrow suppression but difficult to rule out GI bleed from unreliable history from patient. - S/p 2 units PRBCs on 07/16, hemoglobin has since remained stable at 10.7 Follow CBC (6) Thrombocytopenia: Suspect secondary to bone marrow suppression with chemotherapy. Platelets now normal (7) Hypoxia: Aim O2 sats > 94%. - Oxygen supplement as needed Continues, possibly secondary to atelectasis versus pleural effusion seen on chest x-ray from hypoalbuminemia Check chest x-ray in the morning (8) Dementia: With acute metabolic encephalopathy-improved somewhat after discontinuing her home gabapentin With significant anxiety from being in the hospital-now much improved with small dose of IV Ativan She was also given a low-dose of Zyprexa last night as she has not slept well for many nights in a row Remains afebrile, no renal failure Repeat UA negative for infection, repeated blood cultures-no growth to date Covid test negative again - Frequent reorientation. -Supportive care -We will order IV Ativan as needed for anxiety Perhaps with improved sleep will improve her delirium (9) Aortic stenosis: Notable recent echocardiogram with moderate-severe aortic stenosis. Follows with cardiology (Dr Koenig). - Cardiology consulted - Aim to keep SBP slightly higher to avoid low perfusion. - Monitor Not likely a candidate for TAVR given her cancer (10) Pulmonary embolism on left: Chronic left-sided thin linear filling defect in a segmental branch seen on CTA chest on admission Continue apixaban but holding for now as above for port removal Should continue anticoagulation indefinitely given her cancer (11) Restless legs syndrome: Continue Mirapex (12) Hypothyroidism: Continue home levothyroxine TSH here normal at 1.56 (13) Hypokalemia: Potassium low at 2.9 today Replace with IV and p.o. potassium chloride Follow BMP and magnesium level in the morning (14) DVT prophylaxis: Apixaban on hold - SCDs Disposition-continued stay in PCU until port removal on Sunday. PT/OT consultations were placed-recommend rehab. Possibly stable for discharge to rehab on Sunday or Sunday She lives alone and her brother and his check on her on a daily basis, however she has significant cognitive impairment and a history of multiple falls. I do not think she is safe to go home alone at this time Admission and Anticipated Discharge Date Admission Date: July 16, 2020 Subjective Patient was having significant anxiety and restlessness this morning. I ordered her a small dose of IV Ativan after a couple of hours and nursing reports that, she finally fell asleep for the next 5 hours. I saw her and woke her up and she was much more calm and although she thought she was in [place], she was much more appropriate, not as tachycardic and was very cooperative. She denied any pain anywhere, no shortness of breath. She was doing well. She ate a few bites of some of her meals today as per nursing. Telemetry with rate controlled atrial fibrillation. Review of Systems Review of Systems: All systems reviewed & are unremarkable except as noted in HPI & below Physical Exam Constitutional: + frail appearing; not in distress Eyes: + anicteric sclerae ENMT: With alopecia Neck: trachea midline, no thyromegaly Respiratory: normal respiratory effort, lungs clear to auscultation Cardiovascular: Rate/Rhythm: regular rate and + irregularly irregular Heart Sounds: + murmur (3/6 AMOS at the RUSB) Chest (Breasts): Chest: normal inspection of chest and + vascular access device or port (Port in place without any surrounding erythema) Gastrointestinal (Abdomen): normal bowel sounds, soft, nontender, no hepatosplenomegaly Musculoskeletal: Extremities: extremities normal to inspection; no cyanosis and no clubbing Skin: no rashes, warm and dry + wound (Bilat posterior shoulders with OPTi foam in place over wounds) Neurologic: moves all extremities and awake; no focal motor deficits Psychiatric: Orientation: alert, oriented to person and cooperative Genitourinary: Cerna catheter in place draining clear yellow urine Lymphatic: no lymphedema Results & Data Results & Data ([facility]) Vital Signs (Past 12 Hours) Vital Signs Temp Pulse Resp BP Pulse Ox 07/25/20 18:00 81 30 H 95 07/25/20 16:45 88 28 H 112/61 95 07/25/20 16:41 76 07/25/20 16:05 36.4 C L 07/25/20 16:00 84 24 97 07/25/20 14:00 79 26 H 93 07/25/20 12:00 36.5 C 92 H 26 H 93 07/25/20 10:00 127 H 35 H 93 07/25/20 08:00 36.4 C L 85 25 H 94 07/25/20 07:36 106 H 31 H 116/83 Laboratory Results 07/25/20 07/25/20 Range/Units 04:36 04:35 WBC 13.90 H (4.8-10.8) K/uL RBC 3.38 L (4.2-5.4) M/uL Hgb 10.7 L (12.0-16.0) g/dL Hct 32.9 L (37-47) % MCV 97.3 (80-100) fL MCH 31.7 (25-34) pg MCHC 32.5 (32-36) g/dL RDW Std Deviation 70.8 H (36.4-46.3) fL RDW Coeff of Demetra 20.2 H (11.5-14.5) % Plt Count 191 (130-400) K/uL MPV 10.9 H (7.4-10.4) fL Immature Gran % (Auto) 1.8 % Neut % (Auto) 87.4 % Lymph % (Auto) 6.8 % [place] % (Auto) 3.9 % Eos % (Auto) 0.0 % Baso % (Auto) 0.1 % Neut # (Auto) 12.15 H (1.4-6.5) K/uL Lymph # (Auto) 0.94 L (1.2-3.4) K/uL [place] # (Auto) 0.54 (0.11-0.59) K/uL Eos # (Auto) 0.00 (0-0.5) K/uL Baso # (Auto) 0.02 (0-0.2) K/uL Immature Gran # (Auto) 0.25 H (0.00-0.02) K/uL Absolute Nucleated RBC 0.03 H (0-0) K/uL Nucleated RBC % (auto) 0.2 % Polychromasia 1+ Anisocytosis Present Sodium 140 (136-145) mmol/L Potassium 2.9 L D (3.5-5.1) mmol/L Chloride 104 (98-107) mmol/L Carbon Dioxide 32 (21-32) mmol/L Anion Gap 4.0 (3-11) BUN 13 (7-18) mg/dl Creatinine 0.51 L (0.6-1.2) mg/dl Est Cr Clr Drug Dosing 96.2 ml/min Est GFR ( Amer) 112.9 Est GFR (Non-Af Amer) 97.4 BUN/Creatinine Ratio 25.1 H (10-20) Glucose 85 (70-99) mg/dl Calcium 8.6 (8.5-10.1) mg/dl Magnesium 2.1 (1.8-2.4) mg/dl PG Care Time/CCT Total # of Minutes Spent Total Time Spent with Patient: Total time spent is greater than 50% in coordination of care (as documented) at patient's floor/unit and/or counseling patient: Coding Level of Care Code 17491 Subseq Hosp Care Lvl 3 Diagnoses Bacteremia R78.81 Septic shock A41.9; R65.21 Right breast cancer with T3 tumor, >5 cm in greatest dimension C50.911 Atrial fibrillation with rapid ventricular response I48.91 Normocytic anemia D64.9 Thrombocytopenia D69.6 Hypoxia R09.02 Dementia F03.90 Aortic stenosis I35.0 Pulmonary embolism on left I26.99 Restless legs syndrome G25.81 Hypothyroidism E03.9 Hypokalemia E87.6 DVT prophylaxis Z29.9
[2020-07-25] MEDS: MONTELUKAST SODIUM 10 MG TABLET PO SCH (20:31)
[2020-07-25] MEDS: PRAMIPEXOLE DIHYDROCHLO 0.5 MG TAB PO SCH (20:31)
[2020-07-25] MEDS: ATORVASTATIN 40 MG TAB PO SCH (20:32)
[2020-07-25] MEDS ORDERED: LORazepam 0.5 MG/1 ML VIAL IV PRN (21:00)
[2020-07-26 04:45] LABS: Basophils # (auto) 0.01 K/uL (0-0.2); Basophils % (auto) 0.1 %; Eosinophils # (auto) 0.01 K/uL (0-0.5); Eosinophils % (auto) 0.1 %; Hematocrit (blood only) 34.1 % (37-47); Hemoglobin 11.1 g/dL (12.0-16.0); Immature Granulocytes # (auto) 0.16 K/uL (0.00-0.02); Immature Granulocytes % (auto) 1.4 %; Lymphocytes # (auto) 1.21 K/uL (1.2-3.4); Lymphocytes % (auto) 10.4 %; Mean Corpuscular Hgb Conc 32.6 g/dL (32-36); Mean Corpuscular Volume 98.3 fL (80-100); Mean Platelet Volume 10.6 fL (7.4-10.4); Monocytes # (auto) 0.35 K/uL (0.11-0.59); Neutrophils # (auto) 9.89 K/uL (1.4-6.5); Platelet Count 165 K/uL (130-400); RDW Coefficient of Variation 20.3 % (11.5-14.5); RDW Standard Deviation 73.1 fL (36.4-46.3); Red Blood Count 3.47 M/uL (4.2-5.4); White Blood Count 11.63 K/uL (4.8-10.8)
[2020-07-26 05:11] LABS: Anisocytosis Present; Polychromasia 1+
[2020-07-26 05:12] LABS: BUN Creatinine Ratio 24.8 (10-20); Calcium 8.3 mg/dl (8.5-10.1); Creatinine Clr Calc Pharmacy 104.3 ml/min; Est GFR (Non-African American) 100.1; Magnesium 2.1 mg/dl (1.8-2.4); Potassium 3.9 mmol/L (3.5-5.1)
[2020-07-26] MEDS: LEVOTHYROXINE SODIUM 100 MCG TABLET PO SCH (05:51)
[2020-07-26] MEDS: CEFEPIME 2,000 MG in SYRINGE 0 ML IV SCH ×3 (05:51→21:45)
--- NOTE | 2020-07-26 07:33 | XRay Report ---
XR chest 1V portable CLINICAL HISTORY: Follow-up hypoxia COMPARISON STUDY: 07/19/2020 FINDINGS: The heart remains enlarged. There is no change in the position of the left-sided A-Port cat heter which is likely positioned within a left-sided SVC. There are small bilateral pleural effusions . There is continued evidence for distant failure/fluid overload. There is no lobar consolidation. Th ere is a reverse total right shoulder arthroplasty.[ IMPRESSION: 1. Persistent cardiomegaly, radiographic evidence of congestive failure/fluid overload with small bridgette ateral pleural effusions ACT 112: Negative or not required by law. Electronically signed by: Marquis Armas M.D. 07/26/2020 7:31 AM
[2020-07-26] MEDS: PANTOprazole 40 MG TAB PO SCH ×2 (07:50→20:25)
[2020-07-26] MEDS: DOCUSATE SODIUM/SENNA 50/8.6MG TAB PO SCH ×2 (07:50→20:24)
[2020-07-26] MEDS: Magic Mouthwash 240mL PO SCH ×3 (07:50→21:53)
[2020-07-26] MEDS: POLYETHYLENE (MIRALAX) 17 GM PACK PO SCH (07:51)
[2020-07-26] MEDS: FAMOTIDINE 20 MG TAB PO SCH ×2 (07:51→20:24)
[2020-07-26] MEDS: ASPIRIN 81 MG ECTAB PO SCH (07:51)
[2020-07-26] MEDS: DULoxetine HCL 60 MG CAP PO SCH ×2 (07:51→20:23)
[2020-07-26] MEDS ORDERED: GLUCOSE 10 TABS/TUBE PO STA (08:08)
[2020-07-26] MEDS: FLUTICASONE/VILANTEROL 100/25MCG 14 PUFFS/INHALER INH SCH (08:18)
[2020-07-26] MEDS ORDERED: DEXTROSE 50% 50 ML SYRINGE IV PRN (08:30)
[2020-07-26] MEDS ORDERED: GLUCOSE 10 TABS/TUBE PO PRN (08:30)
[2020-07-26] MEDS ORDERED: GLUCAGON FOR INJ 1 MG VIAL IM PRN (08:30)
[2020-07-26] MEDS ORDERED: GLUCOSE 40% GEL 15 GM TUBE PO PRN (08:30)
[2020-07-26] MEDS ORDERED: CARBOHYDRATES FOR HYPOGLYCEMIA PO PRN (08:30)
[2020-07-26] MEDS ORDERED: MIDAZOLAM HCL 1 MG/ML 2ML VIAL ONE (09:27)
[2020-07-26] MEDS ORDERED: PROPOFOL IV EMULSION 10 MG/ML 20 ML VIAL IV ONE (09:27)
[2020-07-26] MEDS ORDERED: fentaNYL citrate 100 MCG/2 ML VIAL ONE (09:27)
--- NOTE | 2020-07-26 09:59 | Anesthesiology Consultation ---
Date of Service July 26, 2020 History Surgery Operation Date: 07/26/20 10:20 Proposed Procedures p Mediport Removal - Primitivo Clark, Height/Weight Height: 5 ft 4 in Weight: 65.6 kg Allergies Allergy/AdvReac Type Severity Reaction Status Date / Time adhesive tape Allergy Mild Rash Verified 07/16/20 18:40 iodine Allergy Mild Rash Verified 07/16/20 18:40 Medications Home Medications Medication Instructions Recorded Confirmed Last Taken albuterol sulfate 90 mcg/actuation 2 puffs INH Q6H PRN 03/30/20 07/16/20 04/08/20 05:30 aerosol inhaler apixaban 5 mg tablet 5 mg PO BID 03/30/20 07/16/20 04/04/20 aspirin 81 mg tablet,delayed 81 mg PO QAM 03/30/20 07/16/20 04/03/20 release atorvastatin 40 mg tablet 40 mg PO PM 03/30/20 07/16/20 04/07/20 21:00 bisoprolol fumarate 5 mg tablet 5 mg PO QAM 03/30/20 07/16/20 04/08/20 05:30 cholecalciferol (vitamin D3) 25 25 mcg PO QAM 03/30/20 07/16/20 04/07/20 09:00 mcg (1,000 unit) capsule digoxin 250 mcg (0.25 mg) tablet 250 mcg PO QAM 03/30/20 07/16/20 04/08/20 05:30 duloxetine 60 mg capsule,delayed 60 mg PO BID 03/30/20 07/16/20 04/07/20 21:30 release sprinkle fluticasone furoate 100 1 puffs INH QAM 03/30/20 07/16/20 04/08/20 05:30 mcg-vilanterol 25 mcg/dose inhalation powder furosemide 20 mg tablet 20 mg PO QAM 03/30/20 07/16/20 04/07/20 09:00 gabapentin 100 mg capsule 200 mg PO TID 03/30/20 07/16/20 04/07/20 21:00 levothyroxine 100 mcg capsule 100 mcg PO QAM 03/30/20 07/16/20 04/08/20 05:30 loratadine 10 mg tablet 10 mg PO QAM PRN 03/30/20 07/16/20 04/07/20 09:00 magnesium oxide 400 mg PO QAM 03/30/20 07/16/20 04/07/20 09:00 montelukast 10 mg tablet 10 mg PO HS 03/30/20 07/16/20 04/07/20 21:00 omeprazole 40 mg capsule,delayed 40 mg PO BID 03/30/20 07/16/20 04/08/20 05:30 release paroxetine HCl 20 mg tablet 20 mg PO DAILY 03/30/20 07/16/20 04/07/20 21:00 pramipexole 1 mg tablet 1 mg PO HS 03/30/20 07/16/20 04/07/20 21:00 Active Medications Generic Name Dose Route Start Last Admin Trade Name Freq PRN Reason Stop Dose Admin Apixaban 5 mg 07/20/20 09:00 07/21/20 08:46 Apixaban 5 Mg Tablet PO 08/19/20 08:59 5 mg BID ISH Administration Aspirin 81 mg 07/18/20 09:00 07/26/20 07:51 Aspirin 81 Mg Ectab PO 08/17/20 08:59 Not Given QAM ISH Atorvastatin Calcium 40 mg 07/17/20 00:13 07/25/20 20:32 Atorvastatin 40 Mg Tab PO 08/16/20 00:12 40 mg PM ISH Administration Nystatin 30 ml/ Dexamethasone 0 ml 07/24/20 14:00 07/26/20 07:50 3.75 mg/ Diphenhydramine HCl PO 08/23/20 13:59 Not Given 300 mg/ Sucrose 45 ml/ TID ISH Microcrystalline Cellulose 45 ml/ BARCODE IDENTIFIER 1 ea Dextrose 25 - 50 ml 07/26/20 08:30 07/26/20 08:55 Dextrose 50% 50 Ml Syringe IV 08/25/20 08:29 25 ml UD PRN Administration Hypoglycemia Protocol Protocol Digoxin 0.25 mg 07/17/20 16:00 07/25/20 16:41 Digoxin 0.25 Mg Tab PO 08/16/20 15:59 0.25 mg DAILY@1600 ISH Administration Duloxetine HCl 60 mg 07/19/20 21:00 07/26/20 07:51 Duloxetine Hcl 60 Mg Cap PO 08/18/20 20:59 Not Given BID ISH Famotidine 20 mg 07/19/20 09:00 07/26/20 07:51 Famotidine 20 Mg Tab PO 08/18/20 08:59 Not Given BID ISH Fluticasone/Vilanterol 1 puffs 07/17/20 09:00 07/26/20 08:18 Fluticasone/Vilanterol 100/25mcg 14 Puffs/Inhaler INH 08/16/20 08:59 1 puffs QAM ISH Administration Furosemide 20 mg 07/18/20 09:00 07/20/20 09:18 Furosemide 20 Mg Tab PO 08/17/20 08:59 20 mg QAM ISH Administration Cefepime HCl 2,000 mg/ Syringe 20 mls @ 5 mls/min 07/19/20 14:00 07/26/20 05:51 IV 07/31/20 15:59 5 mls/min Q8H ISH Administration Protocol Gentamicin Sulfate 1.04 ml/ 2.28 mls @ 4 mls/min 07/22/20 19:00 07/25/20 20:0 4 Syringe INTC 08/21/20 18:59 4 mls/min Q24H ISH Administration Protocol Levothyroxine Sodium 100 mcg 07/17/20 06:30 07/26/20 05:51 Levothyroxine Sodium 100 Mcg Tablet PO 08/16/20 06:29 100 mcg DAILYBB ISH Administration Magnesium Oxide 400 mg 07/20/20 09:00 07/25/20 08:03 Magnesium Oxide 400 Mg Tab PO 08/19/20 08:59 400 mg QAM ISH Administration Montelukast Sodium 10 mg 07/19/20 21:00 07/25/20 20:31 Montelukast Sodium 10 Mg Tablet PO 08/18/20 20:59 10 mg HS ISH Administration Olanzapine 2.5 mg 07/24/20 21:40 07/25/20 02:48 Olanzapine 2.5 Mg Tab PO 08/24/20 20:59 2.5 mg HS PRN Administration Agitation Ondansetron HCl 4 mg 07/24/20 10:42 07/24/20 15:00 Ondansetron Inj 2 Mg/Ml 2 Ml Vial IV 08/23/20 10:41 4 mg Q6H PRN Administration Nausea Pantoprazole Sodium 40 mg 07/19/20 21:00 07/26/20 07:50 Pantoprazole 40 Mg Tab PO 12/30/20 20:59 Not Given BID ISH Paroxetine HCl 20 mg 07/17/20 09:00 07/25/20 08:05 Paroxetine Hcl 20 Mg Tab PO 08/16/20 08:59 20 mg DAILY ISH Administration Polyethylene Glycol 17 gm 07/22/20 09:00 07/26/20 07:51 Polyethylene (Miralax) 17 Gm Pack PO 08/21/20 08:59 Not Given DAILY ISH Pramipexole Dihydrochloride 1 mg 07/18/20 00:30 07/25/20 20:31 Pramipexole Dihydrochlo 0.5 Mg Tab PO 08/17/20 00:29 1 mg HS ISH Administration Senna/Docusate Sodium 1 tab 07/21/20 21:00 07/26/20 07:50 Docusate Sodium/Senna 50/8.6mg Tab PO 08/20/20 20:59 Not Given BID ISH Past Medical History Medical History Anemia Anxiety Aortic stenosis moderate to severe Arthritis Asthma Atrial fibrillation Breast cancer, right Cardiac murmur has had for long time Dementia Depression GERD (gastroesophageal reflux disease) Hearing deficit Hyperlipidemia Hypertension Hypothyroidism 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 Osteoarthritis Osteoporosis Poor historian information obtained by [id number] Keyla Pulmonary embolism on left Restless legs syndrome Transient ischemic attack (TIA) possible TIA (03/2020)/formerly [facility] Exercise / Class Metabolic Activity IV < 2 Limit ADL/Bedbound Past Family History Family History Sister Diabetes Breast cancer Grandmother (Maternal) Thyroid cancer Past Surgical History Surgical History Difficult airway for intubation remote possible hx of difficult intubation ? related to deviated trachea> no recent surgeries/anesthesia > most recent procedure 2003 formerly [facility] H/O shoulder surgery right total replacement then reverse total > [facility] by Dr. Clifton> 1998 History of arthroscopic knee surgery right History of cardiac cath no stents > [facility] History of colonoscopy History of hip surgery bilat replacements > [facility] > [facility] > unsure when but prior to 2003 History of tooth extraction History of total right knee replacement 2003 @ [facility] Past Anesthesia History No Hx of Anesthesia Complications and No Family Hx of Anesthesia Complications History of PONV No Hx of PONV and No Hx of Motion Sickness Social History Smoking Status: Never smoker Do You Dip or Chew Tobacco: No Hx Alcohol Use: No Hx Substance Use: No substance use type: does not use Physical Exam Vital Signs Last Vital Signs Temp 36.7 C 07/25/20 23:21 Pulse 82 07/26/20 00:00 Resp 27 H 07/25/20 23:21 BP 102/61 07/25/20 23:21 Pulse Ox 94 07/25/20 23:21 Testing Laboratory Results 07/26/20 04:09 07/26/20 04:09 PT 12.1 Seconds (9.0-12.0) H 07/19/20 04:22 INR 1.2 (0.9-1.1) H 07/19/20 04:22 APTT 43.4 Seconds (21.0-31.0) H 07/16/20 15:35 Hemoglobin A1c 6.4 % (4.5-5.6) H 07/18/20 04:45 Urine Color Yellow 07/22/20 17:50 Urine Appearance Clear (Clear) 07/22/20 17:50 Urine pH 5.0 (4.5-7.5) 07/22/20 17:50 Ur Specific [place] 1.027 (1.000-1.030) 07/22/20 17:50 Urine Protein 1+ (Negative) H 07/22/20 17:50 Urine Glucose (UA) Negative (Negative) 07/22/20 17:50 Urine Ketones 1+ (Negative) H 07/22/20 17:50 Urine Nitrite Negative (Negative) 07/22/20 17:50 Ur Leukocyte Esterase Negative (Negative) 07/22/20 17:50 Urine WBC (Auto) 1-5 /hpf (0-5) 07/22/20 17:50 Urine RBC (Auto) 10-30 /hpf (0-4) H 07/22/20 17:50 U Hyaline Cast (Auto) 1-5 /lpf (0-5) 07/22/20 17:50 U Epithel Cells (Auto) 20-30 /lpf (0-5) H 07/22/20 17:50 Urine Bacteria (Auto) Negative (Negative) 07/22/20 17:50 Blood Type A Negative 07/16/20 19:48 Antibody Screen NEGATIVE 07/16/20 19:48 07/22/20 17:45 Aerobic Blood Culture - Preliminary Blood No growth in Aerobic bottle after 48 hours. Anaerobic Blood Culture - Final 07/22/20 17:59 Aerobic Blood Culture - Preliminary Blood No growth in Aerobic bottle after 48 hours. Anaerobic Blood Culture - Preliminary No growth in Anaerobic bottle after 48 hours. 07/18/20 08:22 Aerobic Blood Culture - Final Blood No growth in Aerobic bottle after 5 days. Anaerobic Blood Culture - Final No growth in Anaerobic bottle after 5 days. 07/18/20 08:34 Aerobic Blood Culture - Final Blood No growth in Aerobic bottle after 5 days. Anaerobic Blood Culture - Final No growth in Anaerobic bottle after 5 days. 07/16/20 15:35 Aerobic Blood Culture - Final Blood Pseudomonas aeruginosa Anaerobic Blood Culture - Final No growth in Anaerobic bottle after 5 days. 07/20/20 11:15 Gram Stain - Final Shoulder,Left Wound Culture - Final Adriana albicans 07/16/20 15:44 Aerobic Blood Culture - Final Blood No growth in Aerobic bottle after 5 days. Anaerobic Blood Culture - Final No growth in Anaerobic bottle after 5 days. 07/26/20 09:36 POC Glucose 120 H
[2020-07-26] MEDS ORDERED: BUPIVACAINE/EPINEPHRINE 0.5% MPF 1:200,000 30 ML VIAL ONE (10:19)
[2020-07-26] MEDS ORDERED: ATROPINE SULFATE 0.1 MG/ML 10ML SYR IV PRN (10:25)
[2020-07-26] MEDS ORDERED: ePHEDrine sulfate 50 MG/ML AMP IV PRN (10:25)
--- NOTE | 2020-07-26 10:32 | History & Physical Bridge Note ---
Date of Service July 26, 2020 History & Physical Bridge Note I have examined the patient, reviewed the History & Physical and in the interval since the performance of the History & Physical I have noted the following changes of clinical significance: no changes noted. pt seen. discussed care with brother and obtained consent for left subclavian mediport removal via telephone. discussed risks/options. ok to proceed.
--- NOTE | 2020-07-26 11:20 | Operative Report ---
PG Post Operative Report Pre & Post Diagnosis Operation Date: 07/26/20 10:20 Pre-Op Diagnosis: bacteremia Post-Op Diagnosis: bacteremia I identified the patient and participated in the time-out.: Yes Procedure Operation Date: 07/26/20 10:20 Actual Procedures p Mediport Removal - Primitivo Clark DO Surgeon Primitivo Clark DO Lumber Tailer n/a Estimated Blood Loss 3 Findings Consistent with Post-Op Diagnosis Specimens none Description of Procedure After informed consent was obtained the patient was taken to the operating room and placed in supine position. IV sedation was administered by anesthesia and titrated to effect. After adequate sedation the left upper chest was sterilely prepped and draped in usual fashion. Marcaine with epinephrine was injected around the visible port. A 15 blade scalpel was used to make an incision through her previous scar. This was carried down through soft tissues and cautery. We readily encountered the port and capsule. I was able to find the securing sutures and cut these with suture scissors. The port was then easily removed and pressure was held under the left clavicle for several minutes. There was adequate hemostasis. The wound was thoroughly irrigated and closed in 2 layers using 3-0 Vicryl for deep layers and 4-0 Monocryl for skin. Dermabond was placed over the wound. The patient was awakened and transferred recovery in stable condition. I attest to the content of the Intraoperative Record and any orders documented therein. Any exceptions are noted below.
[2020-07-26] MEDS ORDERED: traMADol HCL 50 MG TABLET PO PRN (11:45)
--- NOTE | 2020-07-26 11:45 | Anesthesiology Progress Note ---
Date of Service July 26, 2020 Anesthesia Post Procedure Vital Signs Vital Signs: Temp Pulse Pulse Resp BP BP Pulse Ox 07/26/20 11:40 36.8 C 92 H 21 114/67 100 07/26/20 11:30 91 H 21 123/70 100 07/26/20 11:20 93 H 23 112/66 100 07/26/20 11:14 36.1 C L 102 H 21 113/73 100 07/26/20 00:00 82 07/25/20 23:21 36.7 C 86 27 H 102/61 94 07/25/20 21:23 88 07/25/20 19:44 36.7 C 80 24 114/61 97 07/25/20 18:00 81 30 H 95 07/25/20 16:45 88 28 H 112/61 95 07/25/20 16:41 76 07/25/20 16:05 36.4 C L 07/25/20 16:00 84 24 97 07/25/20 14:00 79 26 H 93 07/25/20 12:00 36.5 C 92 H 26 H 93 Transfer of Care Handoff Completed per policy Notes Mental Status: alert / awake / arousable Patient Amnestic to Procedure: Yes Nausea / Vomiting: adequately controlled Pain: adequately controlled Airway Patency, RR, SpO2: stable & adequate BP & HR: stable & adequate Hydration State: stable & adequate Anesthetic Complications: no major complications apparent
[2020-07-26] MEDS: MAGNESIUM OXIDE 400 MG TAB PO SCH (14:36)
[2020-07-26] MEDS: PARoxetine HCL 20 MG TAB PO SCH (14:37)
--- NOTE | 2020-07-26 16:27 | Hospitalist Progress Note ---
Date of Service July 26, 2020 Assessment & Plan (1) Bacteremia: 1/ bottles of blood cultures from 07/16 growing pansensitive Pseudomonas aeruginosa Repeat blood cultures from 07/18 and 07/22 remain no growth to date Unclear source as her urine from 07/16 has no indication of infection, and she is not neutropenic, so GI translocation would be less likely. CT of the chest without pneumonia CT abdomen/pelvis without evidence of inflammation or infection However, she does have multiple wounds on posterior shoulders left elbow and right leg-posterior shoulder wounds do seem more open and moist with mild surrounding erythema-could be possible source? Port does not appear infected, but certainly could be Wound culture from left posterior shoulder growing Adriana Appreciate [facility] infectious disease consultation with recommendations as follows: "Given no clear source of infection, CLABSI is on top of the list of differential. - Remove mediport to prevent recurrent/relapsed infection - May continue cefepime as inpatient - When ready for discharge, switch cefepime to cipro 500 mg po bid to complete total 7 days from 07/20/20 - If for any reason, line salvage is sought, I recommend to po Cipro 500 mg po bid w/ antibiotic lock therapy w/ Cipro in mediport for total 14 days from negative blood cultures (please, contact pharmacy for dosing and dwell time for abx lock therapy). However, this increases the risk of relapsed infection." I discussed these recommendations with the patient's brother who is her decision-maker as well as with the surgical team. I also discussed her care with her oncologist, Dr. Spencer. -Continue cefepime and then can switch to p.o. Cipro as above to complete course until 07/27/2020. Given she is still in the hospital, it appears she will finish her antibiotic course prior to discharge. - Plan for SNF discharge when able. -Continue to follow repeat cultures to ensure stability -Continue lock therapy of the port with gentamicin until port is removed -Wound care for open wounds-using silver dressings (2) Septic shock: Source bacteremia as above. Likely element of adrenal insufficiency as well as hypovolemia. Was initially on Levophed, IV hydrocortisone, and p.o. fludrocortisone and has since been weaned off all of these Blood pressures have been normal for several days Cerna catheter remains in place due to significant weakness and to measure urine output (3) Right breast cancer with T3 tumor, >5 cm in greatest dimension: ER positive HER2/jose negative. Currently undergoing neoadjuvant chemotherapy under Dr Spencer. No stage from other notes. - Will [facility] an outpatient with [facility]. -Continue to encourage p.o. intake -Has very poor p.o. intake (4) Atrial fibrillation with rapid ventricular response: Improved rate with IV fluids suggestive of dehydrated state in ER. -Initially held apixaban from home but was restarted after thrombocytopenia and anemia improved. -Apixaban now on hold as above for port removal -Continue to hold home bisoprolol while blood pressures are soft -Continue home digoxin -Continue to follow on telemetry -Appreciate cardiology consultation (5) Normocytic anemia: Concerning drop in ER from Hgb 10.7 [07/05] to 8.1, then 6.8. Likely secondary to chemotherapy bone marrow suppression but difficult to rule out GI bleed from unreliable history from patient. - S/p 2 units PRBCs on 07/16, hemoglobin has since remained stable at 10.7 Follow CBC (6) Thrombocytopenia: Suspect secondary to bone marrow suppression with chemotherapy. Platelets now normal (7) Hypoxia: Aim O2 sats > 94%. - Oxygen supplement as needed Continues, possibly secondary to atelectasis versus pleural effusion seen on chest x-ray from hypoalbuminemia Check chest x-ray in the morning (8) Dementia: With acute metabolic encephalopathy-improved somewhat after discontinuing her home gabapentin With significant anxiety from being in the hospital-now much improved with small dose of IV Ativan She was also given a low-dose of Zyprexa last night as she has not slept well for many nights in a row Remains afebrile, no renal failure Repeat UA negative for infection, repeated blood cultures-no growth to date Covid test negative again - Frequent reorientation. -Supportive care -We will order IV Ativan as needed for anxiety Perhaps with improved sleep will improve her delirium - Better now. (9) Aortic stenosis: Notable recent echocardiogram with moderate-severe aortic stenosis. Follows with cardiology (Dr Koenig). - Cardiology consulted - Aim to keep SBP slightly higher to avoid low perfusion. - Monitor Not likely a candidate for TAVR given her cancer (10) Pulmonary embolism on left: Chronic left-sided thin linear filling defect in a segmental branch seen on CTA chest on admission Continue apixaban but holding for now as above for port removal Should continue anticoagulation indefinitely given her cancer (11) Restless legs syndrome: Continue Mirapex (12) Hypothyroidism: Continue home levothyroxine TSH here normal at 1.56 (13) Hypokalemia: Potassium low at 2.9 today Replace with IV and p.o. potassium chloride Follow BMP and magnesium level in the morning (14) DVT prophylaxis: Apixaban on hold - SCDs Disposition-continued stay in PCU until port removal on Sunday. PT/OT consultations were placed-recommend rehab. Possibly stable for discharge to rehab on Sunday or Sunday She lives alone and her brother and his check on her on a daily basis, however she has significant cognitive impairment and a history of multiple falls. I do not think she is safe to go home alone at this time Admission and Anticipated Discharge Date Admission Date: July 16, 2020 Subjective No issues today. She is not in pain. Reports no fevers/chills, chest pain, shortness of breath, abdominal pain, nausea, or vomiting. Physical Exam Constitutional: WD/WN, vitals as above Eyes: EOM intact bilaterally; no conjunctival abnormality ENMT: external ear and nose normal, oropharynx normal Neck: trachea midline, no thyromegaly normal visual inspection Respiratory: normal respiratory effort, lungs clear to auscultation no labored breathing Auscultation: no crackles and no wheezes Cardiovascular: RRR, no murmur, no edema Gastrointestinal (Abdomen): Inspection/Auscultation: abdomen normal to inspection; abdomen not distended Musculoskeletal: no cyanosis or clubbing, extremities motor strength 5/5 Skin: no rashes, warm and dry Neurologic: moves all extremities and awake Psychiatric: Orientation: alert, oriented to person and cooperative Results & Data Results & Data ([facility]) Vital Signs (Past 12 Hours) Vital Signs Temp Pulse Resp BP Pulse Ox 07/26/20 16:01 36.3 C L 86 18 99/70 L 97 07/26/20 14:35 36.3 C L 07/26/20 14:05 36.4 C L 07/26/20 13:40 36.4 C L 07/26/20 13:00 36.4 C L 07/26/20 12:30 36.4 C L 07/26/20 11:40 36.8 C 92 H 21 114/67 100 07/26/20 11:30 91 H 21 123/70 100 07/26/20 11:20 93 H 23 112/66 100 07/26/20 11:14 36.1 C L 102 H 21 113/73 100 PG Care Time/CCT Total # of Minutes Spent Total Time Spent with Patient: Total time spent is greater than 50% in coordination of care (as documented) at patient's floor/unit and/or counseling patient: Coding Level of Care Code 25386 Subseq Hosp Care Lvl 2 Diagnoses Bacteremia R78.81 Septic shock A41.9; R65.21 Right breast cancer with T3 tumor, >5 cm in greatest dimension C50.911 Atrial fibrillation with rapid ventricular response I48.91 Normocytic anemia D64.9 Thrombocytopenia D69.6 Hypoxia R09.02 Dementia F03.90 Aortic stenosis I35.0 Pulmonary embolism on left I26.99 Restless legs syndrome G25.81 Hypothyroidism E03.9 Hypokalemia E87.6 DVT prophylaxis Z29.9
[2020-07-26] MEDS: DIGOXIN 0.25 MG TAB PO SCH (17:07)
[2020-07-26] MEDS: PRAMIPEXOLE DIHYDROCHLO 0.5 MG TAB PO SCH (20:23)
[2020-07-26] MEDS: ATORVASTATIN 40 MG TAB PO SCH (20:25)
[2020-07-26] MEDS: APIXABAN 5 MG TABLET PO SCH (20:48)
[2020-07-26] MEDS: MONTELUKAST SODIUM 10 MG TABLET PO SCH (20:55)
[2020-07-27] MEDS: LEVOTHYROXINE SODIUM 100 MCG TABLET PO SCH (05:24)
[2020-07-27] MEDS: CEFEPIME 2,000 MG in SYRINGE 0 ML IV SCH ×3 (05:24→21:24)
[2020-07-27 07:30] LABS: Hematocrit (blood only) 36.4 % (37-47); Hemoglobin 11.9 g/dL (12.0-16.0); Mean Corpuscular Hemoglobin 31.6 pg (25-34); Mean Corpuscular Hgb Conc 32.7 g/dL (32-36); Mean Corpuscular Volume 96.8 fL (80-100); Mean Platelet Volume 10.3 fL (7.4-10.4); Platelet Count 164 K/uL (130-400); RDW Coefficient of Variation 20.1 % (11.5-14.5); RDW Standard Deviation 70.7 fL (36.4-46.3); Red Blood Count 3.76 M/uL (4.2-5.4); White Blood Count 11.65 K/uL (4.8-10.8)
[2020-07-27 07:59] LABS: BUN Creatinine Ratio 23.8 (10-20); Calcium 8.9 mg/dl (8.5-10.1); Creatinine Clr Calc Pharmacy 100.5 ml/min; Est GFR (African American) 117.7; Est GFR (Non-African American) 101.5; Magnesium 2.1 mg/dl (1.8-2.4); Potassium 3.7 mmol/L (3.5-5.1)
[2020-07-27] MEDS: POLYETHYLENE (MIRALAX) 17 GM PACK PO SCH (08:05)
[2020-07-27] MEDS: FAMOTIDINE 20 MG TAB PO SCH ×2 (08:05→21:07)
[2020-07-27] MEDS: APIXABAN 5 MG TABLET PO SCH ×2 (08:05→21:08)
[2020-07-27] MEDS: ASPIRIN 81 MG ECTAB PO SCH (08:05)
[2020-07-27] MEDS: MAGNESIUM OXIDE 400 MG TAB PO SCH (08:05)
[2020-07-27] MEDS: DULoxetine HCL 60 MG CAP PO SCH ×2 (08:06→21:08)
[2020-07-27] MEDS: PANTOprazole 40 MG TAB PO SCH ×2 (08:06→21:09)
[2020-07-27] MEDS: FLUTICASONE/VILANTEROL 100/25MCG 14 PUFFS/INHALER INH SCH (08:06)
[2020-07-27] MEDS: Magic Mouthwash 240mL PO SCH ×3 (08:10→21:09)
[2020-07-27] MEDS: DOCUSATE SODIUM/SENNA 50/8.6MG TAB PO SCH ×2 (08:10→21:14)
[2020-07-27] MEDS ORDERED: SENNA 8.6 MG TAB PO SCH (09:00)
[2020-07-27] MEDS: PARoxetine HCL 20 MG TAB PO SCH (09:53)
[2020-07-27] MEDS: ONDANSETRON INJ 2 MG/ML 2 ML VIAL IV PRN (14:14)
[2020-07-27] MEDS: DIGOXIN 0.25 MG TAB PO SCH (16:01)
--- NOTE | 2020-07-27 20:52 | Hospitalist Progress Note ---
Date of Service July 27, 2020 Assessment & Plan (1) Bacteremia: 1/ bottles of blood cultures from 07/16 growing pansensitive Pseudomonas aeruginosa Repeat blood cultures from 07/18 and 07/22 remain no growth to date Unclear source as her urine from 07/16 has no indication of infection, and she is not neutropenic, so GI translocation would be less likely. CT of the chest without pneumonia CT abdomen/pelvis without evidence of inflammation or infection However, she does have multiple wounds on posterior shoulders left elbow and right leg-posterior shoulder wounds do seem more open and moist with mild surrounding erythema-could be possible source? Port does not appear infected, but certainly could be Wound culture from left posterior shoulder growing Adriana Appreciate [facility] infectious disease consultation with recommendations as follows: "Given no clear source of infection, CLABSI is on top of the list of differential. - Remove mediport to prevent recurrent/relapsed infection - May continue cefepime as inpatient - When ready for discharge, switch cefepime to cipro 500 mg po bid to complete total 7 days from 07/20/20 - If for any reason, line salvage is sought, I recommend to po Cipro 500 mg po bid w/ antibiotic lock therapy w/ Cipro in mediport for total 14 days from negative blood cultures (please, contact pharmacy for dosing and dwell time for abx lock therapy). However, this increases the risk of relapsed infection." I discussed these recommendations with the patient's brother who is her decision-maker as well as with the surgical team. I also discussed her care with her oncologist, Dr. Spencer. -Continue cefepime and then can switch to p.o. Cipro as above to complete course until 07/27/2020. Given she is still in the hospital, it appears she will finish her antibiotic course prior to discharge. - Plan for SNF discharge when able. -Continue to follow repeat cultures to ensure stability -Continue lock therapy of the port with gentamicin until port is removed -Wound care for open wounds-using silver dressings will need PICC line for chemo. (2) Septic shock: Source bacteremia as above. Likely element of adrenal insufficiency as well as hypovolemia. Was initially on Levophed, IV hydrocortisone, and p.o. fludrocortisone and has since been weaned off all of these Blood pressures have been normal for several days Cerna catheter remains in place due to significant weakness and to measure urine output (3) Right breast cancer with T3 tumor, >5 cm in greatest dimension: ER positive HER2/jose negative. Currently undergoing neoadjuvant chemotherapy under Dr Spencer. No stage from other notes. - Will follow [facility] as an outpatient with [facility]. -Continue to encourage p.o. intake -Has very poor p.o. intake (4) Atrial fibrillation with rapid ventricular response: Improved rate with IV fluids suggestive of dehydrated state in ER. -Initially held apixaban from home but was restarted after thrombocytopenia and anemia improved. -Apixaban now on hold as above for port removal -Continue to hold home bisoprolol while blood pressures are soft -Continue home digoxin -Continue to follow on telemetry -Appreciate cardiology consultation (5) Normocytic anemia: Concerning drop in ER from Hgb 10.7 [07/05] to 8.1, then 6.8. Likely secondary to chemotherapy bone marrow suppression but difficult to rule out GI bleed from unreliable history from patient. - S/p 2 units PRBCs on 07/16, hemoglobin has since remained stable at 10.7 Follow CBC (6) Thrombocytopenia: Suspect secondary to bone marrow suppression with chemotherapy. Platelets now normal (7) Hypoxia: Aim O2 sats > 94%. - Oxygen supplement as needed Continues, possibly secondary to atelectasis versus pleural effusion seen on chest x-ray from hypoalbuminemia Check chest x-ray in the morning (8) Dementia: With acute metabolic encephalopathy-improved somewhat after discontinuing her home gabapentin With significant anxiety from being in the hospital-now much improved with small dose of IV Ativan She was also given a low-dose of Zyprexa last night as she has not slept well for many nights in a row Remains afebrile, no renal failure Repeat UA negative for infection, repeated blood cultures-no growth to date Covid test negative again - Frequent reorientation. -Supportive care -We will order IV Ativan as needed for anxiety Perhaps with improved sleep will improve her delirium - Better now. (9) Aortic stenosis: Notable recent echocardiogram with moderate-severe aortic stenosis. Follows with cardiology (Dr Koenig). - Cardiology consulted - Aim to keep SBP slightly higher to avoid low perfusion. - Monitor Not likely a candidate for TAVR given her cancer (10) Pulmonary embolism on left: Chronic left-sided thin linear filling defect in a segmental branch seen on CTA chest on admission Continue apixaban but holding for now as above for port removal Should continue anticoagulation indefinitely given her cancer (11) Restless legs syndrome: Continue Mirapex (12) Hypothyroidism: Continue home levothyroxine TSH here normal at 1.56 (13) Hypokalemia: Potassium low at 2.9 today Replace with IV and p.o. potassium chloride Follow BMP and magnesium level in the morning (14) DVT prophylaxis: Apixaban on hold - SCDs Disposition-continued stay in PCU until port removal on Sunday. PT/OT consultations were placed-recommend rehab. Possibly stable for discharge to rehab on Sunday or Sunday She lives alone and her brother and his check on her on a daily basis, however she has significant cognitive impairment and a history of multiple falls. I do not think she is safe to go home alone at this time Admission and Anticipated Discharge Date Admission Date: July 16, 2020 Subjective Patient reports no new complaints at this time. Review of Systems Review of Systems: Unobtainable due to cognitive status Physical Exam Physical Exam: Constitutional: WD/WN, vitals as above Eyes: EOM intact bilaterally; no conjunctival abnormality ENMT: external ear and nose normal, oropharynx normal Neck: trachea midline, no thyromegaly normal visual inspection Respiratory: normal respiratory effort, lungs clear to auscultation no labored breathing Auscultation: no crackles and no wheezes Cardiovascular: RRR, no murmur, no edema Gastrointestinal (Abdomen): Inspection/Auscultation: abdomen normal to inspection; abdomen not distended Musculoskeletal: no cyanosis or clubbing, extremities motor strength 5/5 Skin: no rashes, warm and dry Neurologic: moves all extremities and awake Psychiatric: Orientation: alert, oriented to person and cooperative Results & Data Results & Data ([facility]) Vital Signs (Past 12 Hours) Vital Signs Temp Pulse Pulse Resp BP Pulse Ox 07/27/20 16:01 88 07/27/20 14:52 36.3 C L 99 H 16 111/70 95 PG Care Time/CCT Total # of Minutes Spent Total Time Spent with Patient: Total time spent is greater than 50% in coordination of care (as documented) at patient's floor/unit and/or counseling patient: Coding Level of Care Code 45681 Subseq Hosp Care Lvl 3 Diagnoses Bacteremia R78.81 Septic shock A41.9; R65.21 Right breast cancer with T3 tumor, >5 cm in greatest dimension C50.911 Atrial fibrillation with rapid ventricular response I48.91 Normocytic anemia D64.9 Thrombocytopenia D69.6 Hypoxia R09.02 Dementia F03.90 Aortic stenosis I35.0 Pulmonary embolism on left I26.99 Restless legs syndrome G25.81 Hypothyroidism E03.9 Hypokalemia E87.6 DVT prophylaxis Z29.9 Time Spent (min) 35 Comment new patient: chart review
[2020-07-27] MEDS: MONTELUKAST SODIUM 10 MG TABLET PO SCH (21:07)
[2020-07-27] MEDS: PRAMIPEXOLE DIHYDROCHLO 0.5 MG TAB PO SCH (21:07)
[2020-07-27] MEDS: ATORVASTATIN 40 MG TAB PO SCH (21:08)
[2020-07-28] MEDS: LEVOTHYROXINE SODIUM 100 MCG TABLET PO SCH (05:39)
[2020-07-28] MEDS: CEFEPIME 2,000 MG in SYRINGE 0 ML IV SCH (05:39)
[2020-07-28] MEDS: FAMOTIDINE 20 MG TAB PO SCH ×2 (07:53→20:07)
[2020-07-28] MEDS: FLUTICASONE/VILANTEROL 100/25MCG 14 PUFFS/INHALER INH SCH (07:53)
[2020-07-28] MEDS: APIXABAN 5 MG TABLET PO SCH ×2 (07:54→20:08)
[2020-07-28] MEDS: POLYETHYLENE (MIRALAX) 17 GM PACK PO SCH (07:54)
[2020-07-28] MEDS: DULoxetine HCL 60 MG CAP PO SCH ×2 (07:54→20:08)
[2020-07-28] MEDS: PANTOprazole 40 MG TAB PO SCH ×2 (07:54→20:07)
[2020-07-28] MEDS: MAGNESIUM OXIDE 400 MG TAB PO SCH (07:55)
[2020-07-28] MEDS: ASPIRIN 81 MG ECTAB PO SCH (07:55)
[2020-07-28] MEDS: PARoxetine HCL 20 MG TAB PO SCH (07:55)
[2020-07-28] MEDS: Magic Mouthwash 240mL PO SCH ×3 (07:57→20:10)
[2020-07-28] MEDS: DOCUSATE SODIUM/SENNA 50/8.6MG TAB PO SCH ×2 (07:57→20:07)
[2020-07-28] MEDS: DIGOXIN 0.25 MG TAB PO SCH (16:03)
[2020-07-28] MEDS: MONTELUKAST SODIUM 10 MG TABLET PO SCH (20:07)
[2020-07-28] MEDS: PRAMIPEXOLE DIHYDROCHLO 0.5 MG TAB PO SCH (20:08)
[2020-07-28] MEDS: ATORVASTATIN 40 MG TAB PO SCH (20:08)
--- NOTE | 2020-07-28 22:47 | Hospitalist Progress Note ---
Date of Service July 28, 2020 Assessment & Plan (1) Bacteremia: / bottles of blood cultures from 07/16 growing pansensitive Pseudomonas aeruginosa Repeat blood cultures from 07/18 and 07/22 remain no growth to date Unclear source as her urine from 07/16 has no indication of infection, and she is not neutropenic, so GI translocation would be less likely. CT of the chest without pneumonia CT abdomen/pelvis without evidence of inflammation or infection However, she does have multiple wounds on posterior shoulders left elbow and right leg-posterior shoulder wounds do seem more open and moist with mild surrounding erythema-could be possible source? Port does not appear infected, but certainly could be Wound culture from left posterior shoulder growing Adriana Appreciate [facility] infectious disease consultation with recommendations as follows: "Given no clear source of infection, CLABSI is on top of the list of differential. - Remove mediport to prevent recurrent/relapsed infection - May continue cefepime as inpatient - When ready for discharge, switch cefepime to cipro 500 mg po bid to complete total 7 days from 07/20/20 - If for any reason, line salvage is sought, I recommend to po Cipro 500 mg po bid w/ antibiotic lock therapy w/ Cipro in mediport for total 14 days from negative blood cultures (please, contact pharmacy for dosing and dwell time for abx lock therapy). However, this increases the risk of relapsed infection." I discussed these recommendations with the patient's brother who is her decision-maker as well as with the surgical team. I also discussed her care with her oncologist, Dr. Spencer. -completed anitbiotics on 07/27; will stop. -port has been removed. will need PICC line for chemo. (2) Septic shock: resolved. BP is stable. (3) Right breast cancer with T3 tumor, >5 cm in greatest dimension: ER positive HER2/jose negative. Currently undergoing neoadjuvant chemoth erapy under Dr Spencer. No stage from other notes. - Will follow up as an outpatient with [facility]. -Continue to encourage p.o. intake -Has very poor p.o. intake (4) Atrial fibrillation with rapid ventricular response: Improved rate with IV fluids suggestive of dehydrated state in ER. -Initially held apixaban from home but was restarted after thrombocytopenia and anemia improved. -Apixaban now on hold as above for port removal -Continue to hold home bisoprolol while blood pressures are soft -Continue home digoxin -Continue to follow on telemetry -Appreciate cardiology consultation (5) Normocytic anemia: Concerning drop in ER from Hgb 10.7 [07/05] to 8.1, then 6.8. Likely secondary to chemotherapy bone marrow suppression but difficult to rule out GI bleed from unreliable history from patient. - S/p 2 units PRBCs on 07/16, hemoglobin has since remained stable at 10.7 Follow CBC (6) Thrombocytopenia: Suspect secondary to bone marrow suppression with chemotherapy. Platelets now normal (7) Hypoxia: Aim O2 sats > 94%. - Oxygen supplement as needed Continues, possibly secondary to atelectasis versus pleural effusion seen on chest x-ray from hypoalbuminemia Check chest x-ray in the morning (8) Dementia: With acute metabolic encephalopathy-improved somewhat after discontinuing her home gabapentin With significant anxiety from being in the hospital-now much improved with small dose of IV Ativan She was also given a low-dose of Zyprexa last night as she has not slept well for many nights in a row Remains afebrile, no renal failure Repeat UA negative for infection, repeated blood cultures-no growth to date Covid test negative again - Frequent reorientation. -Supportive care -We will order IV Ativan as needed for anxiety Perhaps with improved sleep will improve her delirium - Better now. (9) Aortic stenosis: Notable recent echocardiogram with moderate-severe aortic stenosis. Follows with cardiology (Dr Koenig). - Cardiology consulted - Aim to keep SBP slightly higher to avoid low perfusion. - Monitor Not likely a candidate for TAVR given her cancer (10) Pulmonary embolism on left: Chronic left-sided thin linear filling defect in a segmental branch seen on CTA chest on admission Continue apixaban but holding for now as above for port removal Should continue anticoagulation indefinitely given her cancer (11) Restless legs syndrome: Continue Mirapex (12) Hypothyroidism: Continue home levothyroxine TSH here normal at 1.56 (13) Hypokalemia: Potassium low at 2.9 today Replace with IV and p.o. potassium chloride Follow BMP and magnesium level in the morning (14) DVT prophylaxis: Apixaban on hold - SCDs Disposition-continued stay in PCU until port removal on Sunday. PT/OT consultations were placed-recommend rehab. Possibly stable for discharge to rehab on Sunday or Sunday She lives alone and her brother and his check on her on a daily basis, however she has significant cognitive impairment and a history of multiple falls. I do not think she is safe to go home alone at this time Admission and Anticipated Discharge Date Admission Date: July 16, 2020 Subjective 69 yo female is a poor historian. Review of Systems Review of Systems: All systems reviewed & are unremarkable except as noted in HPI & below and Unobtainable due to cognitive status Physical Exam Physical Exam: Constitutional: WD/WN, vitals as above Eyes: EOM intact bilaterally; no conjunctival abnormality ENMT: external ear and nose normal, oropharynx normal Neck: trachea midline, no thyromegaly normal visual inspection Respiratory: normal respiratory effort, lungs clear to auscultation no labored breathing Auscultation: no crackles and no wheezes Cardiovascular: RRR, no murmur, no edema Gastrointestinal (Abdomen): Inspection/Auscultation: abdomen normal to insp ection; abdomen not distended Musculoskeletal: no cyanosis or clubbing, extremities motor strength 5/5 Skin: no rashes, warm and dry Neurologic: moves all extremities and awake Psychiatric: Orientation: alert, oriented to person and cooperative Results & Data Results & Data ([facility]) Vital Signs (Past 12 Hours) Vital Signs Temp Pulse Pulse Resp BP Pulse Ox 07/28/20 16:03 90 07/28/20 15:45 36.5 C 90 18 116/70 91 PG Care Time/CCT Total # of Minutes Spent Total Time Spent with Patient: Total time spent is greater than 50% in coordination of care (as documented) at patient's floor/unit and/or counseling patient: Coding Level of Care Code 52294 Subseq Hosp Care Lvl 2 Diagnoses Bacteremia R78.81 Septic shock A41.9; R65.21 Right breast cancer with T3 tumor, >5 cm in greatest dimension C50.911 Atrial fibrillation with rapid ventricular response I48.91 Normocytic anemia D64.9 Thrombocytopenia D69.6 Hypoxia R09.02 Dementia F03.90 Aortic stenosis I35.0 Pulmonary embolism on left I26.99 Restless legs syndrome G25.81 Hypothyroidism E03.9 Hypokalemia E87.6 DVT prophylaxis Z29.9
[2020-07-29] MEDS: LEVOTHYROXINE SODIUM 100 MCG TABLET PO SCH (05:53)
[2020-07-29] MEDS: FLUTICASONE/VILANTEROL 100/25MCG 14 PUFFS/INHALER INH SCH (08:21)
[2020-07-29] MEDS: POLYETHYLENE (MIRALAX) 17 GM PACK PO SCH (08:22)
[2020-07-29] MEDS: APIXABAN 5 MG TABLET PO SCH ×2 (08:22→20:49)
[2020-07-29] MEDS: PARoxetine HCL 20 MG TAB PO SCH (08:22)
[2020-07-29] MEDS: ASPIRIN 81 MG ECTAB PO SCH (08:22)
[2020-07-29] MEDS: FAMOTIDINE 20 MG TAB PO SCH ×2 (08:22→20:50)
[2020-07-29] MEDS: DULoxetine HCL 60 MG CAP PO SCH ×2 (08:22→20:49)
[2020-07-29] MEDS: MAGNESIUM OXIDE 400 MG TAB PO SCH (08:22)
[2020-07-29] MEDS: PANTOprazole 40 MG TAB PO SCH ×2 (08:23→20:50)
[2020-07-29] MEDS: Magic Mouthwash 240mL PO SCH ×3 (08:23→20:50)
[2020-07-29] MEDS: DOCUSATE SODIUM/SENNA 50/8.6MG TAB PO SCH ×2 (08:28→20:50)
[2020-07-29] MEDS: DIGOXIN 0.25 MG TAB PO SCH (15:35)
[2020-07-29] MEDS: ATORVASTATIN 40 MG TAB PO SCH (20:49)
[2020-07-29] MEDS: PRAMIPEXOLE DIHYDROCHLO 0.5 MG TAB PO SCH (20:50)
[2020-07-29] MEDS: MONTELUKAST SODIUM 10 MG TABLET PO SCH (20:50)
[2020-07-30] MEDS: LEVOTHYROXINE SODIUM 100 MCG TABLET PO SCH (05:47)
--- NOTE | 2020-07-30 07:24 | Hospitalist Progress Note ---
Date of Service July 29, 2020 Assessment & Plan (1) Bacteremia: 1/ bottles of blood cultures from 07/16 growing pansensitive Pseudomonas aeruginosa Repeat blood cultures from 07/18 and 07/22 remain no growth to date Unclear source as her urine from 07/16 has no indication of infection, and she is not neutropenic, so GI translocation would be less likely. CT of the chest without pneumonia CT abdomen/pelvis without evidence of inflammation or infection However, she does have multiple wounds on posterior shoulders left elbow and right leg-posterior shoulder wounds do seem more open and moist with mild surrounding erythema-could be possible source? Port does not appear infected, but certainly could be Wound culture from left posterior shoulder growing Adriana Appreciate [facility] infectious disease consultation with recommendations as follows: "Given no clear source of infection, CLABSI is on top of the list of differential. - Remove mediport to prevent recurrent/relapsed infection - May continue cefepime as inpatient - When ready for discharge, switch cefepime to cipro 500 mg po bid to complete total 7 days from 07/20/20 - If for any reason, line salvage is sought, I recommend to po Cipro 500 mg po bid w/ antibiotic lock therapy w/ Cipro in mediport for total 14 days from negative blood cultures (please, contact pharmacy for dosing and dwell time for abx lock therapy). However, this increases the risk of relapsed infection." I discussed these recommendations with the patient's brother who is her decision-maker as well as with the surgical team. I also discussed her care with her oncologist, Dr. Spencer. -completed anitbiotics on 07/27; will stop. -port has been removed. will need PICC line for chemo. D/C on Sunday or Sunday. (2) Septic shock: resolved. BP is stable. (3) Right breast cancer with T3 tumor, >5 cm in greatest dimension: ER positive HER2/jose negative. Currently undergoing neoadjuvant chemotherapy under Dr Spencer. No stage from other notes. - Will follow [facility] as an outpatient with [facility]. -Continue to encourage p.o. intake -Has very poor p.o. intake (4) Atrial fibrillation with rapid ventricular response: Improved rate with IV fluids suggestive of dehydrated state in ER. -Initially held apixaban from home but was restarted after thrombocytopenia and anemia improved. -Apixaban now on hold as above for port removal -Continue to hold home bisoprolol while blood pressures are soft -Continue home digoxin -Continue to follow on telemetry -Appreciate cardiology consultation (5) Normocytic anemia: Concerning drop in ER from Hgb 10.7 [07/05] to 8.1, then 6.8. Likely s econdary to chemotherapy bone marrow suppression but difficult to rule out GI bleed from unreliable history from patient. - S/p 2 units PRBCs on 07/16, hemoglobin has since remained stable at 10.7 Follow CBC (6) Thrombocytopenia: Suspect secondary to bone marrow suppression with chemotherapy. Platelets now normal (7) Hypoxia: Aim O2 sats > 94%. - Oxygen supplement as needed Continues, possibly secondary to atelectasis versus pleural effusion seen on chest x-ray from hypoalbuminemia Check chest x-ray in the morning (8) Dementia: With acute metabolic encephalopathy-improved somewhat after discontinuing her home gabapentin With significant anxiety from being in the hospital-now much improved with small dose of IV Ativan She was also given a low-dose of Zyprexa last night as she has not slept well for many nights in a row Remains afebrile, no renal failure Repeat UA negative for infection, repeated blood cultures-no growth to date Covid test negative again - Frequent reorientation. -Supportive care -We will order IV Ativan as needed for anxiety Perhaps with improved sleep will improve her delirium -Patient is confused today. (9) Aortic stenosis: Notable recent echocardiogram with moderate-severe aortic stenosis. Follows with cardiology (Dr Koenig). - Cardiology consulted - Aim to keep SBP slightly higher to avoid low perfusion. - Monitor Not likely a candidate for TAVR given her cancer (10) Pulmonary embolism on left: Chronic left-sided thin linear filling defect in a segmental branch seen on CTA chest on admission Continue apixaban but holding for now as above for port removal Should continue anticoagulation indefinitely given her cancer (11) Restless legs syndrome: Continue Mirapex (12) Hypothyroidism: Continue home levothyroxine TSH here normal at 1.56 (13) Hypokalemia: Potassium low at 2.9 today Replace with IV and p.o. potassium chloride Follow BMP and magnesium level in the morning (14) DVT prophylaxis: Apixaban on hold - SCDs Disposition-continued stay in PCU until port removal on Sunday. PT/OT consultations were placed-recommend rehab. Possibly stable for discharge to rehab on Sunday or Sunday She lives alone and her brother and his check on her on a daily basis, however she has significant cognitive impairment and a history of multiple falls. I do not think she is safe to go home alone at this time Admission and Anticipated Discharge Date Admission Date: July 16, 2020 Subjective Patient was confused overnight. Concern that she is not eating as much. Patient is confused. Review of Systems Review of Systems: All systems reviewed & are unremarkable except as noted in HPI & below Physical Exam Physical Exam: Constitutional: WD/WN, vitals as above Eyes: EOM intact bilaterally; no conjunctival abnormality ENMT: external ear and nose normal, oropharynx normal Neck: trachea midline, no thyromegaly normal visual inspection Respiratory: normal respiratory effort, lungs clear to auscultation no labored breathing Auscultation: no crackles and no wheezes Cardiovascular: RRR, no murmur, no edema Gastrointestinal (Abdomen): Inspection/Auscultation: abdomen normal to inspection; abdomen not distended Musculoskeletal: no cyanosis or clubbing, extremities motor strength 5/5 Skin: no rashes, warm and dry Neurologic: moves all extremities and awake Psychiatric: Orientation: alert, oriented to person and cooperative Results & Data Results & Data ([facility]) Vital Signs (Past 12 Hours) Vital Signs Temp Pulse Resp BP Pulse Ox 07/30/20 02:46 36.5 C 50 L 16 114/70 92 07/29/20 23:00 36.7 C 88 20 115/67 95 PG Care Time/CCT Total # of Minutes Spent Total Time Spent with Patient: Total time spent is greater than 50% in coordination of care (as documented) at patient's floor/unit and/or counseling patient: Coding Level of Care Code 37958 Subseq Hosp Care Lvl 2 Diagnoses Bacteremia R78.81 Septic shock A41.9; R65.21 Right breast cancer with T3 tumor, >5 cm in greatest dimension C50.911 Atrial fibrillation with rapid ventricular response I48.91 Normocytic anemia D64.9 Thrombocytopenia D69.6 Hypoxia R09.02 Dementia F03.90 Aortic stenosis I35.0 Pulmonary embolism on left I26.99 Restless legs syndrome G25.81 Hypothyroidism E03.9 Hypokalemia E87.6 DVT prophylaxis Z29.9
[2020-07-30] MEDS: FLUTICASONE/VILANTEROL 100/25MCG 14 PUFFS/INHALER INH SCH (08:03)
[2020-07-30] MEDS: PARoxetine HCL 20 MG TAB PO SCH (08:04)
[2020-07-30] MEDS: FAMOTIDINE 20 MG TAB PO SCH ×2 (08:04→21:28)
[2020-07-30] MEDS: PANTOprazole 40 MG TAB PO SCH ×2 (08:05→21:27)
[2020-07-30] MEDS: MAGNESIUM OXIDE 400 MG TAB PO SCH (08:05)
[2020-07-30] MEDS: APIXABAN 5 MG TABLET PO SCH ×2 (08:06→21:28)
[2020-07-30] MEDS: POLYETHYLENE (MIRALAX) 17 GM PACK PO SCH (08:06)
[2020-07-30] MEDS: DULoxetine HCL 60 MG CAP PO SCH ×2 (08:06→21:28)
[2020-07-30] MEDS: Magic Mouthwash 240mL PO SCH ×3 (08:07→22:54)
[2020-07-30] MEDS: ASPIRIN 81 MG ECTAB PO SCH (08:07)
[2020-07-30] MEDS: DOCUSATE SODIUM/SENNA 50/8.6MG TAB PO SCH ×2 (08:08→21:32)
[2020-07-30] MEDS: DIGOXIN 0.25 MG TAB PO SCH (16:53)
[2020-07-30] MEDS: MONTELUKAST SODIUM 10 MG TABLET PO SCH (21:27)
[2020-07-30] MEDS: PRAMIPEXOLE DIHYDROCHLO 0.5 MG TAB PO SCH (21:28)
[2020-07-30] MEDS: ATORVASTATIN 40 MG TAB PO SCH (21:28)
--- NOTE | 2020-07-30 22:15 | Hospitalist Progress Note ---
Date of Service July 30, 2020 Assessment & Plan (1) Bacteremia: 1/ bottles of blood cultures from 07/16 growing pansensitive Pseudomonas aeruginosa Repeat blood cultures from 07/18 and 07/22 remain no growth to date Unclear source as her urine from 07/16 has no indication of infection, and she is not neutropenic, so GI translocation would be less likely. CT of the chest without pneumonia CT abdomen/pelvis without evidence of inflammation or infection However, she does have multiple wounds on posterior shoulders left elbow and right leg-posterior shoulder wounds do seem more open and moist with mild surrounding erythema-could be possible source? Port does not appear infected, but certainly could be Wound culture from left posterior shoulder growing Adriana Appreciate [facility] infectious disease consultation with recommendations as follows: "Given no clear source of infection, CLABSI is on top of the list of differential. - Remove mediport to prevent recurrent/relapsed infection - May continue cefepime as inpatient - When ready for discharge, switch cefepime to cipro 500 mg po bid to complete total 7 days from 07/20/20 - If for any reason, line salvage is sought, I recommend to po Cipro 500 mg po bid w/ antibiotic lock therapy w/ Cipro in mediport for total 14 days from negative blood cultures (please, contact pharmacy for dosing and dwell time for abx lock therapy). However, this increases the risk of relapsed infection." I discussed these recommendations with the patient's brother who is her decision-maker as well as with the surgical team. I also discussed her care with her oncologist, Dr. Spencer. -completed anitbiotics on 07/27; will stop. -port has been removed. will need PICC line for chemo. D/C on Sunday or Sunday. (2) Septic shock: resolved. BP is stable. (3) Right breast cancer with T3 tumor, >5 cm in greatest dimension: ER positive HER2/jose negative. Currently undergoing neoadjuvant chemotherapy under Dr Spencer. No stage from other notes. - Will follow up as an outpatient with [facility]. -Continue to encourage p.o. intake -Has very poor p.o. intake: but has improve over past 2 days. (4) Atrial fibrillation with rapid ventricular response: Improved rate with IV fluids suggestive of dehydrated state in ER. -Initially held apixaban from home but was restarted after thrombocytopenia and anemia improved. -Apixaban now on hold as above for port removal; -will resume -Continue to hold home bisoprolol while blood pressures are soft -Continue home digoxin -Continue to follow on telemetry -Appreciate cardiology consultation (5) Normocytic anemia: Concerning drop in ER from Hgb 10.7 [07/05] to 8.1, then 6.8. Likely secondary to chemotherapy bone marrow suppression but difficult to rule out GI bleed from unreliable history from patient. - S/p 2 units PRBCs on 07/16, hemoglobin has since remained stable at 10.7 Follow CBC (6) Thrombocytopenia: Suspect secondary to bone marrow suppression with chemotherapy. Platelets now normal (7) Hypoxia: Aim O2 sats > 94%. - Oxygen supplement as needed Continues, possibly secondary to atelectasis versus pleural effusion seen on chest x-ray from hypoalbuminemia Check chest x-ray in the morning (8) Dementia: With acute metabolic encephalopathy-improved somewhat after discontinuing her home gabapentin With significant anxiety from being in the hospital-now much improved with small dose of IV Ativan She was also given a low-dose of Zyprexa last night as she has not slept well for many nights in a row Remains afebrile, no renal failure Repeat UA negative for infection, repeated blood cultures-no growth to date Covid test negative again - Frequent reorientation. -Supportive care -Though patient is confused, she has been calm today. (9) Aortic stenosis: Notable recent echocardiogram with moderate-severe aortic stenosis. Follows with cardiology (Dr Koenig). - Cardiology consulted - Aim to keep SBP slightly higher to avoid low perfusion. - Monitor Not likely a candidate for TAVR given her cancer (10) Pulmonary embolism on left: Chronic left-sided thin linear filling defect in a segmental branch seen on CTA chest on admission Continue apixaban but holding for now as above for port removal Should continue anticoagulation indefinitely given her cancer (11) Restless legs syndrome: Continue Mirapex (12) Hypothyroidism: Continue home levothyroxine TSH here normal at 1.56 (13) Hypokalemia: Potassium low at 2.9 today Replace with IV and p.o. potassium chloride Follow BMP and magnesium level in the morning (14) DVT prophylaxis: Apixaban will resume - SCDs Disposition-continued stay in PCU until port removal on Sunday. PT/OT consultations were placed-recommend rehab. Possibly stable for discharge to rehab on Sunday or Sunday She lives alone and her brother and his check on her on a daily basis, however she has significant cognitive impairment and a history of multiple falls. I do not think she is safe to go home alone at this time Admission and Anticipated Discharge Date Admission Date: July 16, 2020 Subjective Patient has been eating well today. No new complaints or issues. D/W nursing Review of Systems Review of Systems: All systems reviewed & are unremarkable except as noted in HPI & below Physical Exam Physical Exam: Constitutional: WD/WN, vitals as above Eyes: EOM intact bilaterally; no conjunctival abnormality ENMT: external ear and nose normal, oropharynx normal Neck: trachea midline, no thyromegaly normal visual inspection Respiratory: normal respiratory effort, lungs clear to auscultation no labored breathing Auscultation: no crackles and no wheezes Cardiovascular: RRR, no murmur, no edema Gastrointestinal (Abdomen): Inspection/Auscultation: abdomen normal to inspecti on; abdomen not distended Musculoskeletal: no cyanosis or clubbing, extremities motor strength 5/5 Skin: no rashes, warm and dry Neurologic: moves all extremities and awake Psychiatric: Orientation: alert, oriented to person and cooperative Results & Data Results & Data ([facility]) Vital Signs (Past 12 Hours) Vital Signs Temp Pulse Pulse Resp BP BP Pulse Ox 07/30/20 19:00 36.5 C 111 H 18 114/62 92 07/30/20 16:53 89 07/30/20 16:19 37.1 C 88 18 124/66 94 07/30/20 11:35 36.5 C 90 16 115/69 92 PG Care Time/CCT Total # of Minutes Spent Total Time Spent with Patient: Total time spent is greater than 50% in coordination of care (as documented) at patient's floor/unit and/or counseling patient: Coding Level of Care Code 57803 Subseq Hosp Care Lvl 2 Diagnoses Bacteremia R78.81 Septic shock A41.9; R65.21 Right breast cancer with T3 tumor, >5 cm in greatest dimension C50.911 Atrial fibrillation with rapid ventricular response I48.91 Normocytic anemia D64.9 Thrombocytopenia D69.6 Hypoxia R09.02 Dementia F03.90 Aortic stenosis I35.0 Pulmonary embolism on left I26.99 Restless legs syndrome G25.81 Hypothyroidism E03.9 Hypokalemia E87.6 DVT prophylaxis Z29.9
[2020-07-31 03:06] LABS: Hematocrit (blood only) 35.1 % (37-47); Hemoglobin 11.5 g/dL (12.0-16.0)
[2020-07-31] MEDS: LEVOTHYROXINE SODIUM 100 MCG TABLET PO SCH (05:53)
[2020-07-31] MEDS: PANTOprazole 40 MG TAB PO SCH ×2 (08:18→20:39)
[2020-07-31] MEDS: DULoxetine HCL 60 MG CAP PO SCH ×2 (08:18→20:40)
[2020-07-31] MEDS: FLUTICASONE/VILANTEROL 100/25MCG 14 PUFFS/INHALER INH SCH (08:18)
[2020-07-31] MEDS: ASPIRIN 81 MG ECTAB PO SCH (08:18)
[2020-07-31] MEDS: PARoxetine HCL 20 MG TAB PO SCH (08:18)
[2020-07-31] MEDS: MAGNESIUM OXIDE 400 MG TAB PO SCH (08:18)
[2020-07-31] MEDS: FAMOTIDINE 20 MG TAB PO SCH ×2 (08:18→20:40)
[2020-07-31] MEDS: POLYETHYLENE (MIRALAX) 17 GM PACK PO SCH (08:22)
[2020-07-31] MEDS: DOCUSATE SODIUM/SENNA 50/8.6MG TAB PO SCH ×2 (08:22→20:44)
[2020-07-31] MEDS: Magic Mouthwash 240mL PO SCH ×3 (08:22→22:06)
--- NOTE | 2020-07-31 15:08 | Hospitalist Progress Note ---
Date of Service July 31, 2020 Assessment & Plan (1) Bacteremia: / bottles of blood cultures from 07/16 growing pansensitive Pseudomonas aeruginosa Repeat blood cultures from 07/18 and 07/22 remain no growth to date Unclear source as her urine from 07/16 has no indication of infection, and she is not neutropenic, so GI translocation would be less likely. CT of the chest without pneumonia CT abdomen/pelvis without evidence of inflammation or infection However, she does have multiple wounds on posterior shoulders left elbow and right leg-posterior shoulder wounds do seem more open and moist with mild surrounding erythema-could be possible source? Port does not appear infected, but certainly could be Wound culture from left posterior shoulder growing Adriana Appreciate [facility] infectious disease consultation with recommendations as follows: "Given no clear source of infection, CLABSI is on top of the list of differential. - Remove mediport to prevent recurrent/relapsed infection -Completed antibiotics on 07/27 Tried calling brother to obtain consent for PICC line, however no answer. Will recommend PICC line placement on day of discharge, in case patient gets confused prior. Discharge was mainly held due to patient requiring IV ativan as per case management. Will try to limit this medication as much as possible -port has been removed. will need PICC line for chemo. D/C on Sunday or Sunday. (2) Septic shock: resolved. BP is stable. (3) Right breast cancer with T3 tumor, >5 cm in greatest dimension: ER positive HER2/jose negative. Currently undergoing neoadjuvant chemotherapy under Dr Spencer. No stage from other notes. - Will follow up as an outpatient with [facility]. -Continue to encourage p.o. intake -Her appetite has been waxing and waning throughout this week. THe previous 2 days she had about 1-2 meals a day. Today though she only had a couple a bites for breakfast and lunch. -Given poor appetite, usp prognosis is poor. (4) Atrial fibrillation with rapid ventricular response: Improved rate with IV fluids suggestive of dehydrated state in ER. -Initially held apixaban from home but was restarted after thrombocytopenia and anemia improved. -Apixaban is resumed after holding for mediport removal -Continue to hold home bisoprolol while blood pressures are soft -Continue home digoxin -Continue to follow on telemetry -Appreciate cardiology consultation (5) Normocytic anemia: Concerning drop in ER from Hgb 10.7 [07/05] to 8.1, then 6.8. Likely secondary to chemotherapy bone marrow suppression but difficult to rule out GI bleed from unreliable history from patient. - S/p 2 units PRBCs on 07/16, hemoglobin has since remained stable at above 11 (6) Thrombocytopenia: Suspect secondary to bone marrow suppression with chemotherapy. Platelets now normal (7) Hypoxia: Aim O2 sats > 94%. - Oxygen supplement as needed Continues to require 2 liter Nasal cannula, possibly secondary to atelectasis versus pleural effusion seen on chest x-ray from hypoalbuminemia will monitor. will repeat x ray on 08/01 (8) Dementia: With acute metabolic encephalopathy-improved somewhat after discontinuing her home gabapentin With significant anxiety from being in the hospital-now much improved with small dose of IV Ativan She was also given a low-dose of Zyprexa last night as she has not slept well for many nights in a row Remains afebrile, no renal failure Repeat UA negative for infection, repeated blood cultures-no growth to date Covid test negative again - Frequent reorientation. -Supportive care -Though patient is confused, she has been calm today. (9) Aortic stenosis: Notable recent echocardiogram with moderate-severe aortic stenosis. Follows with cardiology (Dr Koenig). - Cardiology consulted - Aim to keep SBP slightly higher to avoid low perfusion. - Monitor Not likely a candidate for TAVR given her cancer (10) Pulmonary embolism on left: Chronic left-sided thin linear filling defect in a segmental branch seen on CTA chest on admission Continue apixaban but holding for now as above for port removal Should continue anticoagulation indefinitely given her cancer (11) Restless legs syndrome: Continue Mirapex (12) Hypothyroidism: Continue home levothyroxine TSH here normal at 1.56 (13) Hypokalemia: Potassium low at 2.9 today Replace with IV and p.o. potassium chloride Follow BMP and magnesium level in the morning (14) DVT prophylaxis: Apixaban will resume - SCDs Disposition-possible discharge on Sunday or Sunday. PT/OT consultations were placed-recommend rehab. She lives alone and her brother and his check on her on a daily basis, however she has significant cognitive impairment and a history of multiple falls. I do not think she is safe to go home alone at this time Admission and Anticipated Discharge Date Admission Date: July 16, 2020 Subjective Patient reports she wants to be discharged. D/W nurse she has been calm today. However she did not eat much this morning, had about 3 bites of fruit in the morning and only had some of her cheesecake for lunch. Review of Systems Review of Systems: Unobtainable due to cognitive status Physical Exam Physical Exam: Constitutional: WD/WN, vitals as above Eyes: EOM intact bilaterally; no conjunctival abnormality ENMT: external ear and nose normal, oropharynx normal Neck: trachea midline, no thyromegaly normal visual inspection Respiratory: normal respiratory effort, lungs clear to auscultation no labored breathing Auscultation: mild bibasilar crackles and no wheezes Cardiovascular: RRR, no murmur, no edema Gastrointestinal (Abdomen): Inspection/Auscultation: abdomen normal to inspection; abdomen not distended Musculoskeletal: no cyanosis or clubbing, extremities motor strength 5/5 Skin: no rashes, warm and dry Neurologic: moves all extremities and awake Psychiatric: Orientation: alert, oriented to person and cooperative Results & Data Results & Data ([facility]) Vital Signs (Past 12 Hours) Vital Signs Temp Pulse Resp BP Pulse Ox 07/31/20 08:05 36.6 C 99 H 16 121/73 92 PG Care Time/CCT Total # of Minutes Spent Total Time Spent with Patient: Total time spent is greater than 50% in coordination of care (as documented) at patient's floor/unit and/or counseling patient: Coding Level of Care Code 49485 Subseq Hosp Care Lvl 3 Diagnoses Bacteremia R78.81 Septic shock A41.9; R65.21 Right breast cancer with T3 tumor, >5 cm in greatest dimension C50.911 Atrial fibrillation with rapid ventricular response I48.91 Normocytic anemia D64.9 Thrombocytopenia D69.6 Hypoxia R09.02 Dementia F03.90 Aortic stenosis I35.0 Pulmonary embolism on left I26.99 Restless legs syndrome G25.81 Hypothyroidism E03.9 Hypokalemia E87.6 DVT prophylaxis Z29.9
[2020-07-31] MEDS: DIGOXIN 0.25 MG TAB PO SCH (15:48)
[2020-07-31] MEDS: ATORVASTATIN 40 MG TAB PO SCH (20:39)
[2020-07-31] MEDS: MONTELUKAST SODIUM 10 MG TABLET PO SCH (20:39)
[2020-07-31] MEDS: PRAMIPEXOLE DIHYDROCHLO 0.5 MG TAB PO SCH (20:39)
[2020-07-31] MEDS: APIXABAN 5 MG TABLET PO SCH (20:41)
[2020-08-01] MEDS: LEVOTHYROXINE SODIUM 100 MCG TABLET PO SCH (05:43)
[2020-08-01] MEDS: ASPIRIN 81 MG ECTAB PO SCH (07:57)
[2020-08-01] MEDS: MAGNESIUM OXIDE 400 MG TAB PO SCH (07:57)
[2020-08-01] MEDS: FAMOTIDINE 20 MG TAB PO SCH ×2 (07:57→20:31)
[2020-08-01] MEDS: DULoxetine HCL 60 MG CAP PO SCH ×2 (07:57→20:31)
[2020-08-01] MEDS: POLYETHYLENE (MIRALAX) 17 GM PACK PO SCH (07:58)
[2020-08-01] MEDS: PANTOprazole 40 MG TAB PO SCH ×2 (07:58→20:31)
[2020-08-01] MEDS: PARoxetine HCL 20 MG TAB PO SCH (07:58)
[2020-08-01] MEDS: DOCUSATE SODIUM/SENNA 50/8.6MG TAB PO SCH ×2 (08:03→20:29)
[2020-08-01] MEDS: Magic Mouthwash 240mL PO SCH ×3 (08:03→20:32)
[2020-08-01] MEDS: APIXABAN 5 MG TABLET PO SCH ×2 (11:20→20:30)
[2020-08-01] MEDS: FLUTICASONE/VILANTEROL 100/25MCG 14 PUFFS/INHALER INH SCH (11:20)
--- NOTE | 2020-08-01 14:05 | Hospitalist Progress Note ---
Date of Service August 01, 2020 Assessment & Plan (1) Bacteremia: 1/ bottles of blood cultures from 07/16 growing pansensitive Pseudomonas aeruginosa Repeat blood cultures from 07/18 and 07/22 remain no growth to date Unclear source as her urine from 07/16 has no indication of infection, and she is not neutropenic, so GI translocation would be less likely. CT of the chest without pneumonia CT abdomen/pelvis without evidence of inflammation or infection However, she does have multiple wounds on posterior shoulders left elbow and right leg-posterior shoulder wounds do seem more open and moist with mild surrounding erythema-could be possible source? Port does not appear infected, but certainly could be Wound culture from left posterior shoulder growing Adriana -Wound care for open wounds-using silver dressings - Finished abx. Can consider PICC line for chemo. (2) Septic shock: Source bacteremia as above. Likely element of adrenal insufficiency as well as hypovolemia. Was initially on Levophed, IV hydrocortisone, and p.o. fludrocortisone and has since been weaned off all of these Blood pressures have been normal for several days (3) Right breast cancer with T3 tumor, >5 cm in greatest dimension: ER positive HER2/jose negative. Currently undergoing neoadjuvant chemotherapy under Dr Spencer. No stage from other notes. - Will follow up as an outpatient with [facility]. -Continue to encourage p.o. intake -Has very poor p.o. intake (4) Atrial fibrillation with rapid ventricular response: Improved rate with IV fluids suggestive of dehydrated state in ER. -Initially held apixaban from home but was restarted after thrombocytopenia and anemia improved. -Apixaban now on hold as above for port removal -Continue to hold home bisoprolol while blood pressures are soft -Continue home digoxin -Continue to follow on telemetry -Appreciate cardiology consultation (5) Normocytic anemia: Concerning drop in ER from Hgb 10.7 [07/05] to 8.1, then 6.8. Likely secondary to chemotherapy bone marrow suppression but difficult to rule out GI bleed from unreliable history from patient. - S/p 2 units PRBCs on 07/16, hemoglobin has since remained stable at 10.7 Follow CBC (6) Thrombocytopenia: Suspect secondary to bone marrow suppression with chemotherapy. Platelets now normal (7) Hypoxia: Aim O2 sats > 94%. - Oxygen supplement as needed Continues, possibly secondary to atelectasis versus pleural effusion seen on chest x-ray from hypoalbuminemia Check chest x-ray in the morning (8) Dementia: With acute metabolic encephalopathy-improved somewhat after discontinuing her home gabapentin With significant anxiety from being in the hospital-now much improved with small dose of IV Ativan She was also given a low-dose of Zyprexa last night as she has not slept well for many nights in a row Remains afebrile, no renal failure Repeat UA negative for infection, repeated blood cultures-no growth to date Covid test negative again - Frequent reorientation. -Supportive care -We will order IV Ativan as needed for anxiety Perhaps with improved sleep will improve her delirium - Better now. (9) Aortic stenosis: Notable recent echocardiogram with moderate-severe aortic stenosis. Follows with cardiology (Dr Koenig). - Cardiology consulted - Aim to keep SBP slightly higher to avoid low perfusion. - Monitor Not likely a candidate for TAVR given her cancer (10) Pulmonary embolism on left: Chronic left-sided thin linear filling defect in a segmental branch seen on CTA chest on admission Continue apixaban but holding for now as above for port removal Should continue anticoagulation indefinitely given her cancer (11) Restless legs syndrome: Continue Mirapex (12) Hypothyroidism: Continue home levothyroxine TSH here normal at 1.56 (13) Hypokalemia: Potassium low at 2.9 today Replace with IV and p.o. potassium chloride Follow BMP and magnesium level in the morning (14) DVT prophylaxis: Apixaban on hold - SCDs Disposition-continued stay in PCU until port removal on Sunday. PT/OT consultations were placed-recommend rehab. Possibly stable for discharge to rehab on Sunday or Sunday She lives alone and her brother and his check on her on a daily basis, however she has significant cognitive impairment and a history of multiple falls. I do not think she is safe to go home alone at this time Admission and Anticipated Discharge Date Admission Date: July 16, 2020 Subjective No concerns today. Reports no fevers/chills, chest pain, shortness of breath, abdominal pain, nausea, or vomiting. Physical Exam Constitutional: WD/WN, vitals as above Eyes: EOM intact bilaterally; no conjunctival abnormality ENMT: external ear and nose normal, oropharynx normal Neck: trachea midline, no thyromegaly normal visual inspection Respiratory: normal respiratory effort, lungs clear to auscultation no labored breathing Auscultation: no crackles and no wheezes Cardiovascular: RRR, no murmur, no edema Gastrointestinal (Abdomen): Inspection/Auscultation: abdomen normal to inspection; abdomen not distended Musculoskeletal: no cyanosis or clubbing, extremities motor strength 5/5 Skin: no rashes, warm and dry Neurologic: moves all extremities and awake Psychiatric: Orientation: alert, oriented to person and cooperative Results & Data Results & Data ([facility]) Vital Signs (Past 12 Hours) Vital Signs Temp Pulse Resp BP BP Pulse Ox 08/01/20 08:11 36.7 C 68 16 106/86 93 08/01/20 04:08 36.6 C 82 23 103/65 92 PG Care Time/CCT Total # of Minutes Spent Total Time Spent with Patient: Total time spent is greater than 50% in coordination of care (as documented) at patient's floor/unit and/or counseling patient: Coding Level of Care Code 00721 Subseq Hosp Care Lvl 2 Diagnoses Bacteremia R78.81 Septic shock A41.9; R65.21 Right breast cancer with T3 tumor, >5 cm in greatest dimension C50.911 Atrial fibrillation with rapid ventricular response I48.91 Normocytic anemia D64.9 Thrombocytopenia D69.6 Hypoxia R09.02 Dementia F03.90 Aortic stenosis I35.0 Pulmonary embolism on left I26.99 Restless legs syndrome G25.81 Hypothyroidism E03.9 Hypokalemia E87.6 DVT prophylaxis Z29.9
[2020-08-01] MEDS: DIGOXIN 0.25 MG TAB PO SCH (16:16)
--- NOTE | 2020-08-01 19:46 | Communication Note ---
Date of Service: August 01, 2020 Clinical staff advocating for COVID testing for new cough. Doubt this is COVID related, but want to ensure safety of staff as is top priority to prevent sickening of our workforce during pandemic and ensure safety of other patients. COVID testing ordered.
[2020-08-01] MEDS: MONTELUKAST SODIUM 10 MG TABLET PO SCH (20:29)
[2020-08-01] MEDS: PRAMIPEXOLE DIHYDROCHLO 0.5 MG TAB PO SCH (20:30)
[2020-08-01] MEDS: ATORVASTATIN 40 MG TAB PO SCH (20:31)
[2020-08-02] MEDS: LEVOTHYROXINE SODIUM 100 MCG TABLET PO SCH (06:18)
[2020-08-02] MEDS: DULoxetine HCL 60 MG CAP PO SCH (07:39)
[2020-08-02] MEDS: ASPIRIN 81 MG ECTAB PO SCH (07:39)
[2020-08-02] MEDS: MAGNESIUM OXIDE 400 MG TAB PO SCH (07:39)
[2020-08-02] MEDS: PARoxetine HCL 20 MG TAB PO SCH (07:39)
[2020-08-02] MEDS: APIXABAN 5 MG TABLET PO SCH (07:39)
[2020-08-02] MEDS: FAMOTIDINE 20 MG TAB PO SCH (07:39)
[2020-08-02] MEDS: POLYETHYLENE (MIRALAX) 17 GM PACK PO SCH (07:40)
[2020-08-02] MEDS: PANTOprazole 40 MG TAB PO SCH (07:40)
[2020-08-02] MEDS: DOCUSATE SODIUM/SENNA 50/8.6MG TAB PO SCH (07:42)
[2020-08-02] MEDS: Magic Mouthwash 240mL PO SCH (07:46)
[2020-08-02] MEDS: FLUTICASONE/VILANTEROL 100/25MCG 14 PUFFS/INHALER INH SCH (09:42)
[2020-08-02 12:01] LABS: Hematocrit (blood only) 35.2 % (37-47); Hemoglobin 11.7 g/dL (12.0-16.0); Mean Corpuscular Hemoglobin 32.2 pg (25-34); Mean Corpuscular Hgb Conc 33.2 g/dL (32-36); Mean Platelet Volume 10.5 fL (7.4-10.4); Platelet Count 205 K/uL (130-400); RDW Standard Deviation 71.1 fL (36.4-46.3); Red Blood Count 3.63 M/uL (4.2-5.4); White Blood Count 15.54 K/uL (4.8-10.8)
[2020-08-02 12:15] LABS: BUN Creatinine Ratio 22.1 (10-20); Calcium 9.3 mg/dl (8.5-10.1); Creatinine Clr Calc Pharmacy 85.3 ml/min; Est GFR (African American) 111.5; Est GFR (Non-African American) 96.2; Magnesium 2.1 mg/dl (1.8-2.4); Potassium 3.6 mmol/L (3.5-5.1)
--- NOTE | 2020-08-02 17:20 | Discharge Summary ---
Date of Service August 02, 2020 Admission HPI Per Admitting Provider Cyndi Vega is a 69 year old female with right breast invasive ductal carcinoma who presents to the ER with generalized weakness and fatigue. She is currently undergoing neoadjuvant chemotherapy for invasive ductal carcinoma. She lives by herself and has progressive dementia therefore history taking from the patient is rather limited. She reports recurrent falls, generally not feeling well, 2 episodes of diarrhea over the last week (brown, not watery, no melena or bright red blood in stool). She denies any fever, chills, shortness of breath, chest pain, abdominal pain, cough, sinus congestion, dysuria. Just generally feeling weak - she went to the bathroom last night and notes falling down and couldn't get back up. No one sided weakness or change in sensation. She notes her brother Ramón makes all of her medical decisions and acts as her power of patent attorney. Discussed with her brother Ramón Vega who is her power of patent attorney. He reports she has been getting increasingly confused and weak for the last weak. Loss of appetite and not eating. She has had recurrent falls and was crawling around her apartment yesterday. She refuses to wear her medical alert bracelet so did not inform him immediately despite he lives only one mile down the road. She eventually called 911 but refused to go to hospital after they lifted her up. Usually ambulatory with a walker. He also reports concern for an open wound on the patients left shoulder. He reports she picks at this constantly and was recently prescribed antibiotics by her PCP for this. Consent granted for blood transfusion verbally over the phone. Principal Diagnosis UTI with sepsis Discharge Exam Constitutional WD/WN, vitals as above Eyes EOM intact bilaterally; no conjunctival abnormality ENMT external ear and nose normal, oropharynx normal Neck trachea midline, no thyromegaly normal visual inspection Respiratory normal respiratory effort, lungs clear to auscultation no labored breathing Auscultation: no crackles and no wheezes Cardiovascular RRR, no murmur, no edema Gastrointestinal (Abdomen) Inspection/Auscultation: abdomen normal to inspection; abdomen not distended Musculoskeletal no cyanosis or clubbing, extremities motor strength 5/5 Skin no rashes, warm and dry Neurologic moves all extremities and awake Psychiatric Orientation: alert, oriented to person and cooperative Discharge Data Allergies Allergy/AdvReac Type Severity Reaction Status Date / Time adhesive tape Allergy Mild Rash Verified 07/16/20 18:40 iodine Allergy Mild Rash Verified 07/16/20 18:40 Consultations 07/17/20 00:13 Consult Case Management - Discharge Planning Routine Consult Supervisor [facility] Routine 07/17/20 09:15 Consult Cardiology Routine 07/19/20 14:29 Consult Infectious Diseases Routine Procedures Performed Operation Date: 07/26/20 10:20 Actual Procedures p Mediport Removal - Primitivo Clark, Ordered Studies 07/16/20 15:28 CT head/brain wo con Stat 07/16/20 16:43 CT angio chest PE protocol Stat 07/16/20 19:48 CT abd pelvis wo con Stat Hospital Course (1) Bacteremia: 08/23 bottles of blood cultures from 07/16 growing pansensitive Pseudomonas aeruginosa Repeat blood cultures from 07/18 and 07/22 remain no growth to date Unclear source as her urine from 07/16 has no indication of infection, and she is not neutropenic, so GI translocation would be less likely. CT of the chest without pneumonia CT abdomen/pelvis without evidence of inflammation or infection However, she does have multiple wounds on posterior shoulders left elbow and right leg-posterior shoulder wounds do seem more open and moist with mild surrounding erythema-could be possible source? Port does not appear infected, but certainly could be Wound culture from left posterior shoulder growing Adriana -Wound care for open wounds-using silver dressings - Finished abx. Considered PICC line for chemo, but could not get it. Will have to determine future treatment options with oncology. (2) Septic shock: Source bacteremia as above. Likely element of adrenal insufficiency as well as hypovolemia. Was initially on Levophed, IV hydrocortisone, and p.o. fludrocortisone and has since been weaned off all of these Blood pressures have been normal for several days (3) Right breast cancer with T3 tumor, >5 cm in greatest dimension: ER positive HER2/jose negative. Currently undergoing neoadjuvant chemotherapy under Dr Spencer. No stage from other notes. - Will follow up as an outpatient with [facility]. -Continue to encourage p.o. intake -Has very poor p.o. intake (4) Atrial fibrillation with rapid ventricular response: Improved rate with IV fluids suggestive of dehydrated state in ER. -Initially held apixaban from home but was restarted after thrombocytopenia and anemia improved. -Apixaban now on hold as above for port removal -Continue to hold home bisoprolol while blood pressures are soft -Continue home digoxin -Continue to follow on telemetry -Appreciate cardiology consultation (5) Normocytic anemia: Concerning drop in ER from Hgb 10.7 [07/05] to 8.1, then 6.8. Likely secondary to chemotherapy bone marrow suppression but difficult to rule out GI bleed from unreliable history from patient. - S/p 2 units PRBCs on 07/16, hemoglobin has since remained stable at 10.7 Follow CBC (6) Thrombocytopenia: Suspect secondary to bone marrow suppression with chemotherapy. Platelets now normal (7) Hypoxia: Aim O2 sats > 94%. - Oxygen supplement as needed Continues, possibly secondary to atelectasis versus pleural effusion seen on chest x-ray from hypoalbuminemia Check chest x-ray in the morning (8) Dementia: With acute metabolic encephalopathy-improved somewhat after discontinuing her home gabapentin With significant anxiety from being in the hospital-now much improved with small dose of IV Ativan She was also given a low-dose of Zyprexa last night as she has not slept well for many nights in a row Remains afebrile, no renal failure Repeat UA negative for infection, repeated blood cultures-no growth to date Covid test negative again - Frequent reorientation. -Supportive care -We will order IV Ativan as needed for anxiety Perhaps with improved sleep will improve her delirium - Better now. (9) Aortic stenosis: Notable recent echocardiogram with moderate-severe aortic stenosis. Follows with cardiology (Dr Koenig). - Cardiology consulted - Aim to keep SBP slightly higher to avoid low perfusion. - Monitor Not likely a candidate for TAVR given her cancer (10) Pulmonary embolism on left: Chronic left-sided thin linear filling defect in a segmental branch seen on CTA chest on admission Continue apixaban but holding for now as above for port removal Should continue anticoagulation indefinitely given her cancer (11) Restless legs syndrome: Continue Mirapex (12) Hypothyroidism: Continue home levothyroxine TSH here normal at 1.56 (13) Hypokalemia: Potassium low at 2.9 today Replace with IV and p.o. potassium chloride Follow BMP and magnesium level in the morning (14) DVT prophylaxis: Apixaban on hold - SCDs Disposition-continued stay in PCU until port removal on Sunday. PT/OT consultations were placed-recommend rehab. Possibly stable for discharge to rehab on Sunday or Sunday She lives alone and her brother and his check on her on a daily basis, however she has significant cognitive impairment and a history of multiple falls. I do not think she is safe to go home alone at this time Total Time Total Time Spent Total Time Spent (In Minutes): 35 Discharge Plan Discharge Items Patient Disposition: Transfer Long Term Fac Reason For Visit: SEPTIC SHOCK Discharge Diagnosis: Port infection causing septic shock Activity: Resume your previous activity Non-emergency contact: Primary Care Provider and Oncologist Call non-emergency contact if: your symptoms worsen Follow-up/Referrals: Vamshi Ornelas MD [Primary Care Provider] - Diet: Regular Addtl Attending Provider Instructions: Admitted with bloodstream infection due to Port infection. The Port was removed, and she finished IV antibiotics. Can follow up with Dr. Spencer to determine how to get last dose of chemotherapy. Pending Studies at Discharge: No Stand-Alone Forms: My [facility] Skilled Items Patient informed of condition?: Yes DNR: No Discharge Level of Care: Skilled Communicable Disease: No Discharge Prognosis: Stable Lines: None Urinary Catheter: No Medications and DC Order Prescriptions: Continued Eliquis 5 mg tablet 5 mg PO BID RF: 0 levothyroxine 100 mcg capsule 100 mcg PO QAM RF: 0 aspirin 81 mg tablet,delayed release (DR/EC) 81 mg PO QAM RF: 0 atorvastatin 40 mg tablet 40 mg PO PM RF: 0 loratadine [Claritin] 10 mg tablet 10 mg PO QAM PRN (Reason: Allergy Symptoms) RF: 0 duloxetine 60 mg capsule, delayed rel sprinkle 60 mg PO BID RF: 0 bisoprolol fumarate 5 mg tablet 5 mg PO QAM RF: 0 Breo Ellipta 100-25 mcg/dose blister with device 1 puffs INH QAM RF: 0 gabapentin 100 mg capsule 200 mg PO TID RF: 0 montelukast 10 mg tablet 10 mg PO HS RF: 0 furosemide 20 mg tablet 20 mg PO QAM RF: 0 magnesium oxide 400 mg magnesium capsule 400 mg PO QAM RF: 0 paroxetine HCl 20 mg tablet 20 mg PO DAILY RF: 0 cholecalciferol (vitamin D3) 25 mcg (1,000 unit) capsule 25 mcg PO QAM RF: 0 digoxin 250 mcg (0.25 mg) tablet 250 mcg PO QAM RF: 0 pramipexole 1 mg tablet 1 mg PO HS RF: 0 omeprazole 40 mg capsule,delayed release(DR/EC) 40 mg PO BID RF: 0 albuterol sulfate [Ventolin HFA] 90 mcg/actuation HFA aerosol inhaler 2 puffs INH Q6H PRN (Reason: Shortness Of Breath) RF: 0 Discharge Orders: Discharge Order (Routine); Ordered 08/02/20 Ordered By: Raffy Willis/Other Patient Handouts: A1C Admission Data Admit Date/Time: 07/16/20 20:06 Attending Provider: Raffy Reaves Admit Provider: Dragan Bonner Primary Care Provider: Vamshi Ornelas Other Providers: Suman, ; Alli Richardson at [facility] ; Varun Guerrero ; Abdulaziz Estrella ; Dave Birmingham ; Harinder Pantoja ; Jesus Bailey I. ; Loi Adler II ; Marisa Guerrero ; Coleman Whitten Other Interventions: Discharge Summary Assessment (RN) Last Done: 08/02/20 13:50 Coding Level of Care Code D/C Day Management >30 mins Diagnoses Bacteremia R78.81 Septic shock A41.9; R65.21 Right breast cancer with T3 tumor, >5 cm in greatest dimension C50.911 Atrial fibrillation with rapid ventricular response I48.91 Normocytic anemia D64.9 Thrombocytopenia D69.6 Hypoxia R09.02 Dementia F03.90 Aortic stenosis I35.0 Pulmonary embolism on left I26.99 Restless legs syndrome G25.81 Hypothyroidism E03.9 Hypokalemia E87.6 DVT prophylaxis Z29.9
== END 2020-08-02 14:46 | DRG 314 ==
LOC: ED 14:35 → SUATTDRO 20:06 → 1E 20:06 → 2W 07-26 16:28